=== PATIENT | female | born 1950 | race Caucasian/White ===

== ENCOUNTER → 2016-10-09 | Day surgery (SDC) | payer MEDICARE, BC ==
[~2016-10-09] MED LIST: ALPRAZolam 0.25 MG TAB ONE; BACITRACIN OINT 1 EACH PACKET TOPICAL ONE; LIDOCAINE 1% INJ 10MG/ML (20 ML MDV) ONE; SODIUM BICARB 4% 5 ML VIAL (0.48 MEQ/ML) ONE
--- NOTE | 2016-10-09 11:44 | USB ---
EXAMINATION TYPE: US biopsy breast add'l VAD RT, US biopsy breast VAD RT, MG diagnostic mammo RT wo CAD DATE OF EXAM: 10/09/2016 10:22 AM CLINICAL HISTORY: US. 2 lesions at the right 10:00 position. TECHNIQUE: 2 site Ultrasound guided core biopsy of right breast. COMPARISON: NONE FINDINGS: The procedure of ultrasound guided core biopsy was explained to the patient. Benefits, alternatives, and risks were discussed. An informed consent was then obtained. The patient was placed in supine positioning for imaging and for the procedure. The overlying skin was prepped and draped in usual sterile fashion. Lidocaine buffered with bicarbonate was used as anesthetic into the skin and subcutaneous tissue up to area of concern in the right breast. A therese was made with surgical scalpel. Under ultrasound guidance, a 12-gauge vacuum assisted biopsy gun device was used to obtain 4 core samples from each site labeled A and B. Following this, a biopsy clip was left in lesion. Mammography demonstrates appropriate deployment of clips. The patient tolerated the procedure well without any immediate complication. The patient was kept in the radiology department for short stay after the procedure and then discharged home in stable condition. IMPRESSION: Successful, uncomplicated ultrasound guided core biopsy of 2 lesions within the 10:00 position right breast with full pathology results to follow. Pathology Results: Malignant A. BREAST, 10:00 A, ULTRASOUND GUIDED CORE BIOPSY: INVASIVE MAMMARY CARCINOMA, PENDING SPECIAL STAINS. B. BREAST, RIGHT, 10:00 B, ULTRASOUND CORE BIOPSY: INVASIVE MAMMARY CARCINOMA. PENDING SPECIAL STAINS. ADDENDUM REPORT A. BREAST, RIGHT TEN O'CLOCK A, ULTRASOUND GUIDED CORE BIOPSY: INVASIVE DUCTAL CARCINOMA. B. BREAST, RIGHT, TEN O'CLOCK B, ULTRASOUND GUIDED CORE BIOPSY: INVASIVE DUCTAL CARCINOMA. Recommendation Surgical consult of the right breast. EMRED
== END ==
LOC: RADUSWWP 08:46
PROVIDERS: ATTEND Surgery
DX: C50.411 Malignant neoplasm of upper-outer quadrant of right female breast (principal); R92.8 Other abnormal and inconclusive findings on diagnostic imaging of breast; Z88.5 Allergy status to narcotic agent; Z91.041 Radiographic dye allergy status
CPT/HCPCS: 88305; 88342; 19083; G0206; A4648; J2001; 19084; 88361

== ENCOUNTER → 2018-04-02 | Outpatient (CLI) | payer MEDICARE ==
[2018-04-02 10:05] LABS: Basophils % (A) 1 %; Eosinophils # (A) 0.2 k/uL (0-0.7); Eosinophils % (A) 4 %; HCT 41.4 % (34.0-46.0); HGB 13.5 gm/dL (11.4-16.0); Lymphocytes # (A) 1.3 k/uL (1.0-4.8); Lymphocytes % (A) 31 %; MCH 30.4 pg (25.0-35.0); MCHC 32.6 g/dL (31.0-37.0); MCV 93.1 fL (80.0-100.0); Mean Platelet Volume 7.3; Monocytes # (A) 0.3 k/uL (0-1.0); Monocytes % (A) 8 %; Neutrophils # (A) 2.1 k/uL (1.3-7.7); Neutrophils % (A) 53 %; Platelet Count 246 k/uL (150-450); RBC 4.44 m/uL (3.80-5.40); RDW 12.9 % (11.5-15.5); WBC 4.1 k/uL (3.8-10.6)
[2018-04-02 11:52] LABS: Erythrocyte Sedimentation Rate 9 mm/hr (0-20)
== END | disposition home or self-care (01) ==
LOC: LABWHC1 09:37
PROVIDERS: ATTEND Orthopaedic Surgery
DX: T84.84XA Pain due to internal orthopedic prosthetic devices, implants and grafts, initial encounter (principal); Z96.651 Presence of right artificial knee joint
CPT/HCPCS: 36415; 85025; 85652; 86140

== ENCOUNTER → 2018-04-03 | Outpatient (CLI) | payer MEDICARE ==
--- NOTE | 2018-04-03 14:26 | NM ---
EXAMINATION TYPE: NM bone 3 phase DATE OF EXAM: 04/03/2018 COMPARISON: NONE HISTORY: Lower extremity pain in right knee prosthesis. Triple phase bone scintigraphy was performed following the injection of 23.8 mCi Tc 99m MDP. Immedia te images and 5 hours post injection images acquired. FINDINGS: There is symmetric flow to the bilateral knees as well as symmetric blood pool. Photopenic defect of the right tibia is seen from the prosthesis. Otherwise overall symmetric flow is seen to the knee marija nts. With regards to the whole body scans there is focal uptake of the right lateral aspect of L5 and of T 10-1 lesser degree. Multifocal uptake of the cervical spine approximately C7 on the left and C5 on th e left as well as C4 on the right are noted. There is also mildly asymmetric uptake of the right femo ral acetabular joint. Other multifocal uptake is overall symmetric within the glenohumeral joints, ch romic clavicular joints, sternoclavicular joints, sacroiliac joints, knees, ankles, and feet as well as partial visualization within the elbow is most compatible with degenerative change/arthropathy. IMPRESSION: 1. Focal abnormal areas of uptake within the lumbar spine, thoracic spine, and cervical spine may rel ate to degenerative change or metastasis in this patient with a history of breast cancer. Additionall y focal right hip obtained and is favored to represent arthropathy but could represent less likely me tastatic disease. Correlation with radiographs is recommended. 2. No asymmetric uptake within the right knee to suggest prosthesis loosening or joint infection. 3. Degenerative change of the axial and appendicular skeleton.
== END | disposition home or self-care (01) ==
LOC: RADNMMAIN 07:20
PROVIDERS: ATTEND Orthopaedic Surgery
DX: R93.7 Abnormal findings on diagnostic imaging of other parts of musculoskeletal system (principal); M79.661 Pain in right lower leg; Z96.651 Presence of right artificial knee joint; Z91.041 Radiographic dye allergy status
CPT/HCPCS: 78315; A9503

== ENCOUNTER → 2018-04-18 | Outpatient (CLI) | payer MEDICARE ==
--- NOTE | 2018-04-18 13:22 | MR ---
EXAMINATION TYPE: MR t2 spine survey wo con DATE OF EXAM: 04/18/2018 COMPARISON: Bone scan dated 04/03/2018 HISTORY: Abn bone scan TECHNIQUE: Sagittal T2 weighted sequence of the entire spine is performed for survey. FINDINGS: Multilevel degenerative changes are seen of the cervical, thoracic, and lumbar spine. Speci fically there are at least broad-based disc bulges at C4-C5, C5-C6, and C6-C7 as well as at T7-T8, T8 -T9, T9-T10, and T10-T11 in addition to at L1-L2, L3-L4, L4-L5, and L5-S1. Evaluation for disc hernia tion is limited without axial imaging. At L4, L2, L1, T10, T9 and T2 there are T2 hyperintense lesion s that may represent hemangiomas. Confirmation with T1-weighted imaging could be performed. Patchy T1 hypointense subcentimeter areas are seen within the L2 vertebral body however no focal uptake, prior nuclear medicine uptake scan is seen in these may represent patchy heterogeneous bone marrow. No vertebral body height loss is seen throughout the cervical, thoracic, or lumbar spine. Mild spinal canal stenosis is suspected at C4-C5, C5-C6 and C6-C7 as well as at T10-T11, L3-L4, and moderate spi nal canal stenosis suspected at L4-5. Again confirmation with axial imaging could be performed. The s dion cord appears of normal signal throughout. Degree of neural foraminal narrowing would be better assessed with axial imaging in addition to sagittal imaging. Multilevel disc desiccation is seen. IMPRESSION: 1. No findings diagnostic of metastasis. Multiple T2 hyperintense vertebral body lesions most likely represent hemangiomas and could be confirmed with T1-weighted imaging or CT to assess the trabecular pattern. 2. No evidence of vertebral body height loss or malalignment throughout the spine. 3. Multilevel degenerative disc disease throughout the cervical, thoracic, and lumbar spine with at l east disc bulges as described above. Evaluation for focal herniation would be better assessed with ax ial images to correspond to the sagittal images.
--- NOTE | 2018-04-18 16:13 | MR ---
EXAMINATION TYPE: MR hip RT wo/w con DATE OF EXAM: 04/18/2018 COMPARISON: Nuclear medicine bone scan dated 04/03/2018 HISTORY: Abn bone scan. Breast cancer. CONTRAST: Standard multiplanar, multisequence MRI departmental protocol utilizing 9.5 mL intravenous Gadavist g adolinium contrast. FINDINGS: Corresponding to the previously seen abnormal focal area of uptake on the nuclear medicine bone scan dated 04/11/2018 there is a PD hyperintense 8mm lesion of the right medial femoral head is correspondi ngly T1 hypointense with enhancement. Therefore this is suspicious for metastasis. Additionally there is an enhancing T1 hypointense and T2/PD hyperintense 1.2 cm posterior right acetabular lesion is al so highly suspicious for metastasis. Additionally there are findings of mild femoral acetabular arthropathy bilaterally with acetabular ro of sclerosis and slight cephalad joint space narrowing with small subchondral cyst seen on the left w ithin the acetabulum. No evidence of focal bone marrow edema, acute fracture, or dislocation. No joe s evidence of adenopathy within the pelvis is seen. Numerous sigmoid diverticula are noted. The femoral heads maintain their normal rounded contour with no evidence of avascular necrosis. Muscu lature of the pelvis appears grossly unremarkable. IMPRESSION: Right femoral head and right posterior acetabular enhancing osseous lesions most compatible with meta stasis corresponding to the abnormal uptake seen on bone scan dated 04/03/2018. In light of these find ings further evaluation of the spine could be performed with either enhanced MR or CT.
== END ==
LOC: RADMRIMAIN 09:45
PROVIDERS: ATTEND Internal Medicine Hematology & Oncology
DX: M51.24 Other intervertebral disc displacement, thoracic region (principal); M50.221 Other cervical disc displacement at C4-C5 level; M51.26 Other intervertebral disc displacement, lumbar region; M51.36 Other intervertebral disc degeneration, lumbar region; M51.34 Other intervertebral disc degeneration, thoracic region; M50.33 Other cervical disc degeneration, cervicothoracic region
CPT/HCPCS: 82565; 72141; 72146; 72148; 73723; 36415; A9581

== ENCOUNTER → 2018-09-17 | Outpatient (CLI) | payer MEDICARE ==
[2018-09-17 13:50] LABS: Basophils % (A) 1 %; Eosinophils # (A) 0.2 k/uL (0-0.7); Eosinophils % (A) 3 %; HCT 41.7 % (34.0-46.0); HGB 13.3 gm/dL (11.4-16.0); Lymphocytes # (A) 1.6 k/uL (1.0-4.8); Lymphocytes % (A) 33 %; MCH 30.1 pg (25.0-35.0); MCV 94.2 fL (80.0-100.0); Mean Platelet Volume 7.3; Monocytes # (A) 0.2 k/uL (0-1.0); Monocytes % (A) 4 %; Neutrophils # (A) 2.6 k/uL (1.3-7.7); Neutrophils % (A) 55 %; Platelet Count 254 k/uL (150-450); RBC 4.43 m/uL (3.80-5.40); WBC 4.7 k/uL (3.8-10.6)
== END ==
LOC: LABPAT 13:16
PROVIDERS: ATTEND Orthopaedic Surgery
DX: Z01.812 Encounter for preprocedural laboratory examination (principal); M65.342 Trigger finger, left ring finger
CPT/HCPCS: 36415; 80051; 85025

== ENCOUNTER 2018-09-19 10:25 | Day surgery (SDC) | payer MEDICARE ==
[2018-09-18 08:33] VITALS: BMI 32.8
--- NOTE | 2018-09-18 11:26 | HP ---
HISTORY AND PHYSICAL CHIEF COMPLAINT: Left ring finger pain and locking. HISTORY OF PRESENT ILLNESS: The patient is a 68-year-old, right-hand dominant, retired female who presents with left ring finger pain and locking for the past couple months. She notes swelling along with morning symptoms. She has tried an injection and medications with only partial temporary relief. She notes it is significantly painful and limiting for her. PAST MEDICAL HISTORY: Significant for hypertension, breast cancer, and gout along with arthritis. PAST SURGICAL HISTORY: Significant for bilateral carpal tunnel release, cholecystectomy, hysterectomy, left and right total knee arthroplasty along with previous breast surgery. CURRENT MEDICATIONS: 1. Arimidex. 2. Hydrochlorothiazide. 3. Inderal. 4. Mobic. She has allergies to LORTAB and RED DYE. FAMILY HISTORY: Significant for cancer. SOCIAL HISTORY: Negative for current tobacco or alcohol use. REVIEW OF SYSTEMS: A 16 point review of systems otherwise reviewed and is noncontributory. PHYSICAL EXAMINATION: On examination, the patient is approximately 5 foot 7, 210 pounds of endomorphic habitus. HEENT exam is nonfocal. Neck is supple. She is nontender about the left shoulder, elbow and wrist. On examination of her left hand, she is tender over the ring finger A1 dwight. She has palpable triggering and catching. She has moderate digital swelling and stiffness. Light touch is distally intact. IMPRESSION: 1. Symptomatic left ring trigger finger. 2. History of breast cancer. 3. History of gout. RECOMMENDATIONS: I talked to the patient at length regarding her condition and treatment options. At this point, she remains quite symptomatic despite conservative measures. After thorough discussion, she opts to proceed with surgery. We will plan to proceed with left ring trigger finger release. We will likely perform that utilizing local anesthetic and IV sedation. We will likely also perform it as an outpatient procedure. MMODL / IJN: [id number] /
[~2018-09-19 10:25] MED LIST changes: -ALPRAZolam 0.25 MG TAB ONE; -BACITRACIN OINT 1 EACH PACKET TOPICAL ONE; +DEXAMETHASONE SOD PHOSPHATE 10 MG/ML 1 ML VIAL IV ONE; +HYDROmorphone 0.5 MG/0.5 ML SYRINGE IVP PRN; +LACTATED RINGERS 1,000 ML IV SCH; +LIDOCAINE 1% 20 ML VIAL (10MG/ML) FOR IV START INTRADERMA PRN; -LIDOCAINE 1% INJ 10MG/ML (20 ML MDV) ONE; +MIDAZOLAM 2 MG/2 ML VIAL IV PRN; +ONDANSETRON 4 MG/2 ML VIAL IVP ONE; +SCOPOLAMINE 1.5MG/72HR PATCH TRANSDERM ONE; -SODIUM BICARB 4% 5 ML VIAL (0.48 MEQ/ML) ONE; +ceFAZolin IN SWFI 2 GM/20 ML SYRINGE IVP ONE
[2018-09-19 11:48] VITALS: TEMP 98.1
[2018-09-19] MEDS ORDERED: BUPIVACAINE (PF) 0.5% 30 ML VIAL SQ ONE (12:24)
[2018-09-19] MEDS ORDERED: PROPOFOL 10 MG/ML 20 ML VIAL IV ONE (12:24)
[2018-09-19] MEDS ORDERED: fentaNYL (PF) 50 MCG/ML 2 ML AMP ONE (12:24)
[2018-09-19] MEDS ORDERED: LIDOCAINE 1% INJ 10MG/ML (20 ML MDV) ONE (12:24)
--- NOTE | 2018-09-19 12:57 | P.OP ---
Date of Procedure: 09/19/18 Preoperative Diagnosis: Symptomatic left ring trigger finger Postoperative Diagnosis: Same Procedure(s) Performed: Left ring trigger finger release Anesthesia: MAC, local Surgeon: Wilfredo Miranda Estimated Blood Loss (ml): 2 Pathology: none sent Condition: stable Disposition: PACU Indications for Procedure: The patient's a 68-year-old female presents with progressive left ring finger pain and locking for the past several weeks. She did try conservative measures with medications and injections without much relief. She was significantly limited because of pain. A discussion of the risks and benefits of operative intervention was made with the patient and she opted to proceed. Operative risks to include infection, neurovascular injury, possible incomplete resolution of symptoms, possible recurrence of symptoms and need for subsequent procedures was discussed. Informed consent was obtained. Operative Findings: As below Description of Procedure: The patient was brought to the operating room, and after induction of IV sedation the left upper extremity was prepped and draped in normal fashion. The proposed incision site was outlined with the distal volar palmar crease over the left fourth digit. 5 mL of quarter percent plain Marcaine was injected. The skin was incised sharply. A 1 cm incision was made. Subcu changed tissues were divided bluntly. The neurovascular bundles were then gently retracted. The A1 dwight was identified and transected under direct visualization. The flexor tendon was then mobilized. There was good excursion. The wound was irrigated with normal saline. The skin was reapproximated with simple 3-0 nylon suture. A sterile dressing was applied. The patient was awoken from sedation and transferred to the recovery room in good condition. Blood loss was estimated at 2 mL. No complications were incurred. Sponge and needle counts were correct in the case.
[2018-09-19 13:12] VITALS: BP 150/70; PULSE 67; RESP 18
== END 2018-09-19 13:26 | disposition home or self-care (01) ==
LOC: OR 10:25
PROVIDERS: ATTEND Orthopaedic Surgery
DX: M65.342 Trigger finger, left ring finger (principal); Z85.3 Personal history of malignant neoplasm of breast; Z79.1 Long term (current) use of non-steroidal anti-inflammatories (NSAID); Z79.811 Long term (current) use of aromatase inhibitors; Z79.899 Other long term (current) drug therapy; I10 Essential (primary) hypertension; M19.90 Unspecified osteoarthritis, unspecified site; K57.92 Diverticulitis of intestine, part unspecified, without perforation or abscess without bleeding; Z88.5 Allergy status to narcotic agent; Z91.041 Radiographic dye allergy status; Z91.02 Food additives allergy status
CPT/HCPCS: 26055; J1100; J2405; J2001; J3010; J2704; J0690

== ENCOUNTER → 2019-01-23 | Outpatient (CLI) | payer MEDICARE ==
--- NOTE | 2019-01-23 11:55 | XR ---
EXAMINATION TYPE: XR cervical spine comp DATE OF EXAM: 01/23/2019 TECHNIQUE: Frontal, lateral, oblique, and open mouth view of the cervical spine are obtained. HISTORY: M54.2 cervicalgia COMPARISON: MRI survey April 18, 2018 FINDINGS: The cervical spine is visualized in its entirety from C1 thru the top of T1 level, there i s grade 1 to borderline grade 2 anterolisthesis of C3 on C4 measuring 4 to 5 mm. There is slight gra de 1 retrolisthesis of C5 on C6 and C6-C7. Moderate to advanced spurring and disc space narrowing C4- C5 through C6-C7 levels is present. C1-C2 articulation appears within normal limits on the open-mouth view. Prevertebral soft tissue appears within normal limits. Oblique images are felt unremarkable. O verlying soft tissue shows curvilinear calcification right C4 level could reflect carotid bulb mild-t o-moderate eccentric plaque. Vertebral body heights are maintained. IMPRESSION: As above. Note is made spondylolisthesis C3-C4 level is new or more prominent from prior MRI, correlate for interval trauma or injury.
== END ==
LOC: RADXRMAIN 11:19
PROVIDERS: ATTEND Nurse Practitioner Family
DX: M48.02 Spinal stenosis, cervical region (principal); M43.12 Spondylolisthesis, cervical region
CPT/HCPCS: 72050

== ENCOUNTER → 2019-03-16 | Outpatient (CLI) | payer MEDICARE ==
[2019-03-16 13:43] VITALS: BP 120/83; PULSE 85; RESP 16
--- NOTE | 2019-03-16 15:00 | P.PAINCN ---
History of Present Illness - Reason for Consult Consult date: 03/16/19 - History of Present Illness This is a initial consultation for this 68 years old female with a chronic history of severe neck pain started almost 2 years ago, the pain is constant intensity of the pain increased over time, she denies any initiating event, she denies any numbness or tingling sensation she denies any weakness in the upper or lower extremities, and she reported that any neck movement aggravate her pain, the intensity of the pain interferes with the quality of life and she describes the intensity of the pain fluctuates between 8/10 increased to 10 over 10, with any neck movement, patient was evaluated by a spine surgeon Dr. Dyson and he recommended interventional pain management procedures, and if that failed , then he recommend cervical fusion, and patient here for consultation regarding interventional pain management Past Medical History Past Medical History: Cancer, Hypertension, Musculoskeletal Disorder, Osteoarthritis (OA) Additional Past Medical History / Comment(s): hx of rt breast ca, 2017, had 33 radiation tx, hx of kidney stones, gout, diveticulitis History of Any Multi-Drug Resistant Organisms: None Reported Past Surgical History: Bladder Surgery, Breast Surgery, Cholecystectomy, Heart Catheterization, Hysterectomy, Joint Replacement, Orthopedic Surgery Additional Past Surgical History / Comment(s): rt breast lumpectomy, bladder suspension, jessica knee replacement, jessica carpal tunnel, Past Anesthesia/Blood Transfusion Reactions: Postoperative Nausea & Vomiting (PONV) Smoking Status: Former smoker - Past Family History Brother(s) Family Medical History: Cancer Medications and Allergies Home Medications Medication Instructions Recorded Confirmed Type Allopurinol [Zyloprim] 300 mg PO DAILY 09/18/18 03/12/19 History Anastrozole [Arimidex] 1 mg PO DAILY 09/18/18 03/12/19 History Calcium Carbonate [Calcium] 600 mg PO BID 09/18/18 03/12/19 History Hydrochlorothiazide 25 mg PO DAILY 09/18/18 03/12/19 History Meloxicam [Mobic] 15 mg PO DAILY 09/18/18 03/12/19 History Multivitamins, Thera [Multivitamin 1 tab PO DAILY 09/18/18 03/12/19 History (formulary)] Propranolol [Inderal] 20 mg PO BID 09/18/18 03/12/19 History Ergocalciferol (Vitamin D2) 50,000 unit PO Q7D 03/12/19 03/12/19 History [Vitamin D2] Allergies Allergy/AdvReac Type Severity Reaction Status Date / Time acetaminophen [From Lortab] Allergy Itching Verified 03/12/19 12:36 hydrocodone [From Lortab] Allergy Itching Verified 03/12/19 12:36 Iodinated Contrast- Oral and Allergy Unknown Verified 03/12/19 12:36 IV Dye Physical Exam Vitals: Vital Signs Pulse Resp BP 03/16/19 13:42 85 16 120/83 Social history : not smoker , NO ETOH , NO Illegal drugs use . Review of Systems : - Constitutional : no chills , no fever , no night sweats , - Ears : no ear discharge , no change in hearing -Nose, Mouth ,Throat ; no bleeding gums, no sore throat , no epistaxis , -Cardiovascular : Denies chest pain, , no orthopnea , no palpitation -Respiratory : Denies cough , no dyspnea , no hemoptysis -Gastrointestinal : no change in bowel habits , no coffee-ground emesis . -Genitourinary : No hematuria , no discharge , no incontinence, -Musculoskeletal : No gait dysfunction , report low back pain , - Neurological : no ataxia , no tremor , no sezure , -Psychatric : no suicidal ideation no hallucination - Endocrine : no cold intolerence , no polyuria , no polydypsia , -Hematologic : no easy bleeding , no easy brusing , -Allergic / immm : no angioedema , no wheezing ,no allergic rhinitis -Integumentary : no brttle nails , no change hair / nails , no foot/leg ulcers . Physical Examinations : -Constitutional : Cooperative , not in acute distress . -HEENT : nech ; supple , no Lymphadenopathy , no Thyromegaly , :eyes : no icterus, no photophobia . : ENT normal oropharynx , no Thrush - Respiratory : Chest clear to auscultations Bilaterally , no wheezing . - Cardiovascular : regular rate and rhythem , S1 , S2 , no S3 , no S4. - Gastrointestina l: abdomen soft no tenderness , no organomegally . - Genitourinary : Defferred . -Integumentary : No cellulitis , no ulcers , normal skin turgor , no cyanotic . - neurologic : Cranial nerve II to XII intact , no focal neurological deffecit -psychatric : alert , oriented X 3 , appropriate affect , intact judgment and insight . -Lymphatic : no Lymphadenopathy. - musculoskeltal: normal gait Cervical Spine motor stregnth in the deltoid and biceps, normal right side , normal Left side motor stregnth biceps and the wrist extensors normal right side ,normal left side . motor stregnth in the triceps muscle . normal Right side , normal Left side deep tendon reflexes normal at the biceps , normal at Brachioradialis , normal at triceps. Spurling test = positive Neck distraction test= positive Reyes sign= positive positive cervical facet loading test . Lumber spine moter stegnth lower extremities ,thigh and legs 5/5 Right side , 5/5 Left side Results Comments: MRI of the cervical spine done at the [facility]opedic associated 45 C5 6 C6 7 multilevel cervical degenerative disc disease and multilevel cervical spondylosis with facet hypertrophy and there is mild canal stenosis Assessment and Plan Plan: Assessment and plan=chronic neck pain secondary to cervical degenerative disc disease and cervical spondylosis with facet arthropathy, Patient could benefit from cervical epidural steroid injections 2 , and if she continued to have pain after the cervical epidural steroid injection then we will consider doing diagnostic medial branch block cervical C3 4, C4 5 and C5 6, and possible RFA Time with Patient: Greater than 30 PQRS Measure Charge Sheet Measure #130: Documentation of Current Meds in Medical Chart: Patient's medications documented in chart Measure #226: Tobacco Use: Screen & Cessation Intervention: Pt not a tobacco u ser Measure #111: Pneumonia Vaccination: Pneumococcal vaccine NOT administered or previously given Measure #47: Advance Care Plan: Advance care planning discussed & documented, pt chose/unable to give Measure #412: Opioid Treatment Agreement: No documentation of signed opioid treatment agreement Measure #408: Opioid Therapy Follow-up Evaluation: Patient had NO f/u eval minimum every 3 months during opioid therapy Measure #317: Preventitive Care & Scrn High Bld Press & F/U: Normal blood pressure, f/u not required Measure #128: Body Mass Index (BMI) Screening & Follow-up: BMI documented ABOVE normal parameters - f/u documented Measure #131: Pain Assessment & Follow-up: Pain positive & plan documented, Follow-up scheduled Measure #431: Unhealthy Alcohol Use Preventative Care & Scrn: Patient not identified as an unhealthy alcohol user PQRS Narrative: Smoking Status Former smoker Blood Pressure 120/83 Pain Intensity [Neck] 9 Scale Used Numeric (1 - 10) Hx Alcohol Use (MH) Yes: rarely Home Medications: Ambulatory Orders Allopurinol [Zyloprim] 300 mg PO DAILY 09/18/18 Anastrozole [Arimidex] 1 mg PO DAILY 09/18/18 Calcium Carbonate [Calcium] 600 mg PO BID 09/18/18 Hydrochlorothiazide 25 mg PO DAILY 09/18/18 Meloxicam [Mobic] 15 mg PO DAILY 09/18/18 Multivitamins, Thera [Multivitamin (formulary)] 1 tab PO DAILY 09/18/18 Propranolol [Inderal] 20 mg PO BID 09/18/18 Ergocalciferol (Vitamin D2) [Vitamin D2] 50,000 unit PO Q7D 03/12/19
== END | disposition home or self-care (01) ==
LOC: PNWHC3 13:01
PROVIDERS: ATTEND Specialist
DX: G89.29 Other chronic pain (principal); M48.02 Spinal stenosis, cervical region; M50.321 Other cervical disc degeneration at C4-C5 level; M47.812 Spondylosis without myelopathy or radiculopathy, cervical region; M46.92 Unspecified inflammatory spondylopathy, cervical region; I10 Essential (primary) hypertension; Z87.891 Personal history of nicotine dependence; Z79.899 Other long term (current) drug therapy; Z88.5 Allergy status to narcotic agent; Z88.6 Allergy status to analgesic agent
CPT/HCPCS: 99211

== ENCOUNTER 2019-03-25 09:45 | Day surgery (SDC) | payer MEDICARE ==
[2019-03-23 08:30] VITALS: BMI 31.9
[~2019-03-25 09:45] MED LIST changes: -DEXAMETHASONE SOD PHOSPHATE 10 MG/ML 1 ML VIAL IV ONE; -HYDROmorphone 0.5 MG/0.5 ML SYRINGE IVP PRN; +LIDOCAINE 1% 20 ML VIAL (10MG/ML) FOR IV START INTRADERMA ONE; -LIDOCAINE 1% 20 ML VIAL (10MG/ML) FOR IV START INTRADERMA PRN; -MIDAZOLAM 2 MG/2 ML VIAL IV PRN; -ONDANSETRON 4 MG/2 ML VIAL IVP ONE; -SCOPOLAMINE 1.5MG/72HR PATCH TRANSDERM ONE; -ceFAZolin IN SWFI 2 GM/20 ML SYRINGE IVP ONE
[2019-03-25 10:35] VITALS: RESP 16; TEMP 97.7
--- NOTE | 2019-03-25 11:29 | P.PCN ---
Date of Procedure: 03/25/19 Procedure(s) Performed: PROCEDURE NOTE: Cervical Interlaminar Epidural Steroid Injection PHYSICIAN: Isiah Hull MD PREOPERATIVE DIAGNOSIS: cervicalgia POSTOPERATIVE DIAGNOSIS: same PROCEDURE PERFORMED: Interlaminar Epidural Steroid Injection at the C7-T1 level, with a right paramedian approach under fluoroscopic guidance IV SEDATION with midazolam and fentanyl ESTIMATED BLOOD LOSS: None FLUOROSCOPY WAS USED. INDICATIONS FOR PROCEDURE: Patient has a clinical picture consistent with the above-mentioned diagnosis, resulting in cervicalgia. PROCEDURE AND FINDINGS: Patient was greeted in the pre-procedure holding area. The risk, benefits and alternatives to the procedure were again reviewed with the patient and written informed consent was placed in the chart. An IV line was placed. A 500 mL bag of NS was connected to the patient. She was taken to the procedure room and positioned prone on the fluoroscopy table. Routine monitors were applied including EKG leads, blood pressure cuff, and pulse oximetry. Prior to the procedure a time out was completed, verifying correct patient, procedure, site, positioning, and implants and/or special equipment. An AP fluoroscpic typing office worker film was taken to identify the C7 and T1 vertebral bodies, as well as the C7-T1 interspace. The skin was prepped with chlorhexidine and draped in the usual sterile fashion. The skin and subcutaneous tissue overlying the C7-T1 interspace was anesthetized using a 25-guage 1-1/2 inch needle with 1% preservative-free lidocaine for a total volume of 1 mls. Then an 20 cm Tuohy needle was advanced utilizing AP and lateral fluoroscopic views into the C7-T1 interlaminar space. Once the needle tip was engaged in the ligamentum flavum, a loss of resistance syringe was attached and loss of resistance technique was used to identify the epidural space. AP and oblique fluoroscopy views were used to confirm location. Contrast was not used as patient has severe allergy to IV contrast. At this point, after negative aspiration, a total 8mL volume of treatment injectate, consisting of 1mL of 10mg/mL dexamethasone, 5mL of PFNS and 2mL of 1% lidocaine was injected easily. The needle was then flushed with 1 ml of contrast and removed. The needle insertion site was dressed appropriately. She was taken to the recovery room where she was monitored for a brief period of time. She tolerated the procedure well and was discharged home in stable condition with post procedural instructions. Follow-up will be for repeat procedure in 4 weeks. COMPLICATIONS: None
[2019-03-25] MEDS ORDERED: IV FLUID CONTINUATION 1,000 ML IV ONE (11:33)
[2019-03-25 11:51] VITALS: BP 126/77; PULSE 68
--- NOTE | 2019-03-25 12:00 | FL ---
EXAMINATION TYPE: FL guided pain mgmt statistic DATE OF EXAM: 03/25/2019 HISTORY: Pain 7 seconds of fluoroscopic time was utilized for pain management.
== END 2019-03-25 12:02 | disposition home or self-care (01) ==
LOC: ORPAIN 09:45
PROVIDERS: ATTEND Anesthesiology
DX: M54.2 Cervicalgia (principal); Z91.041 Radiographic dye allergy status
CPT/HCPCS: 62321; J2250; J1100; J3010; Q9966; 99152

== ENCOUNTER → 2019-04-01 | Outpatient (CLI) | payer MEDICARE ==
[2019-04-01 14:00] VITALS: BP 150/88; PULSE 76; RESP 18
--- NOTE | 2019-04-01 14:54 | P.PAINPG ---
Subjective Progress Note Date: 04/01/19 This is a 68 years old female with a chronic history of severe neck pain started almost 2 years ago who we initially evaluated in February 2019. She returns today for procedure follow-up following a cervical epidural steroid injection at C7-T1 done on 03/25/2019. She reports no benefit from this procedure, and notes that her pain is a 9 out of 10 and constant located in the right side of her neck without any radiation to extremities. She denies weakness, numbness or tingling in extremities, severe headaches. Patient has been evaluated by a spine surgeon Dr. Dyson and he recommended interventional pain management procedures, and if that failed , then he recommend cervical fusion, which she would not like to pursue at this time. 13 point review of systems was negative. Physical Exam Vitals: Reviewed in EMR Physical Examinations : GENERAL: Well appearing, in no acute distress PSYCH: Mood and affect is appropriate. Awake, alert, and oriented SKIN: Skin color, texture, turgor normal, no rashes or lesions HEENT: Normocephalic, atraumatic. EOM intact CV: No pedal edema RESP: Respirations are unlabored, no audible wheezing GI: Abdomen non-distended MUSCULOSKELETAL: Bilateral upper and lower extremity strength is normal and symmetric. No atrophy or tone abnormalities are noted. Neck: Pain to palpation over the right cervical paraspinous muscles. Spurling negative, Reyes's sign negative. Pain with neck flexion, extension, and lateral flexion. No obvious deformity or signs of trauma. Normal cervical lordotic curve and normal cervical spine range of motion Gait: Gait is normal NEUR: Bilateral upper extremity coordination and muscle stretch reflexes are physiologic and symmetric. No loss of sensation is noted. Results Comments: [facility] of the cervical spine [facility] shows C45 C5 6 C6 7 multilevel cervical degenerative disc disease and multilevel cervical spondylosis with facet hypertrophy and there is mild canal stenosis Assessment and Plan Plan: Assessment and plan=chronic neck pain secondary to cervical degenerative disc disease and cervical spondylosis with facet arthropathy Patient did not obtain benefit from cervical epidural steroid injections, we will schedule diagnostic medial branch block right cervical C3, C4, C5, 2 and possible RFA if she obtains good benefit from the diagnostic block Objective - Vital Signs Vital signs: Vital Signs Temp Pulse 76 04/01/19 13:53 Resp 18 04/01/19 13:53 BP 150/88 04/01/19 13:53 Pulse Ox Intake & Output 03/31/19 04/01/19 04/01/19 18:59 06:59 18:59 Weight 95.254 kg PQRS Measure Charge Sheet Measure #130: Documentation of Current Meds in Medical Chart: Patient's medications documented in chart Measure #226: Tobacco Use: Screen & Cessation Intervention: Pt not a tobacco user Measure #111: Pneumonia Vaccination: Pneumococcal vaccine NOT administered or previously given Measure #47: Advance Care Plan: Advance care planning discussed & documented, pt chose/unable to give Measure #412: Opioid Treatment Agreement: No documentation of signed opioid christen tment agreement Measure #317: Preventitive Care & Scrn High Bld Press & F/U: Pre-hypertensive or hypertensive BP documented, pt will f/u with PCP Measure #128: Body Mass Index (BMI) Screening & Follow-up: BMI documented within normal parameters Measure #131: Pain Assessment & Follow-up: Pain positive & plan documented, Foll ow-up scheduled Measure #431: Unhealthy Alcohol Use Preventative Care & Scrn: Patient not identified as an unhealthy alcohol user PQRS Narrative: Smoking Status Former smoker Blood Pressure 150/88 Pain Intensity [Neck] 9 Scale Used Numeric (1 - 10) Hx Alcohol Use (MH) Yes: rarely Home Medications: Ambulatory Orders Allopurinol [Zyloprim] 300 mg PO DAILY 09/18/18 Anastrozole [Arimidex] 1 mg PO DAILY 09/18/18 Calcium Carbonate [Calcium] 600 mg PO BID 09/18/18 Hydrochlorothiazide 25 mg PO DAILY 09/18/18 Meloxicam [Mobic] 15 mg PO DAILY 09/18/18 Multivitamins, Thera [Multivitamin (formulary)] 1 tab PO DAILY 09/18/18 Propranolol [Inderal] 20 mg PO BID 09/18/18 Ergocalciferol (Vitamin D2) [Vitamin D2] 50,000 unit PO Q7D 03/12/19 ALPRAZolam [Xanax] 0.5 mg PO DAILY PRN 03/23/19 Controlled Substance Measures - Controlled Substance Measures Is patient prescribed a controlled substance at discharge?: No
== END | disposition home or self-care (01) ==
LOC: PNWHC3 13:19
PROVIDERS: ATTEND Anesthesiology
DX: G89.29 Other chronic pain (principal); M50.321 Other cervical disc degeneration at C4-C5 level; M47.812 Spondylosis without myelopathy or radiculopathy, cervical region; M46.92 Unspecified inflammatory spondylopathy, cervical region; Z87.891 Personal history of nicotine dependence
CPT/HCPCS: 99211

== ENCOUNTER 2019-04-13 07:23 | Day surgery (SDC) | payer MEDICARE ==
[2019-04-09 10:02] VITALS: BMI 32.6
[~2019-04-13 07:23] MED LIST changes: -LIDOCAINE 1% 20 ML VIAL (10MG/ML) FOR IV START INTRADERMA ONE
[2019-04-13 07:52] VITALS: TEMP 97.8
[2019-04-13] MEDS ORDERED: LIDOCAINE 1% 20 ML VIAL (10MG/ML) FOR IV START INTRADERMA ONE (08:07)
[2019-04-13] MEDS ORDERED: IV FLUID CONTINUATION 500 ML IV ONE (09:11)
--- NOTE | 2019-04-13 09:35 | P.PCN ---
Date of Procedure: 04/13/19 Procedure(s) Performed: PREOPERATIVE DIAGNOSIS: Cervical Spondylosis with Facet Arthropathy.without myelopathy POSTOPERATIVE DIAGNOSIS: Cervical Spondylosis, Facet Arthropathy. Without myelopathy PROCEDURES: Diagnostic right-sided C3, C4, C5 medial branch blocks, with fluoroscopic guidance ANESTHESIA: Local with 1% lidocaine; IV sedation with Versed. Fluoroscopy was used for the procedure and images were saved in the radiology portion of the chart. EBL: Minimal PROCEDURE INDICATION: The patient with neck pain secondary to cervical arthropathy unresponsive to more conservative treatments. PROCEDURE DESCRIPTION / TECHNIQUE: The patient was seen and identified in the preoperative area. Risks, benefits, complications, and alternatives were discussed with the patient, the patient agreed to proceed with the procedure and signed the consent. IV was started. Vital signs remained stable throughout the procedure. Patient was taken to the OR and time out was completed. The patient was placed in the supine position on the procedure table. The cervical area was prepped and draped in the usual sterile fashion. A timeout was performed. Vital signs were closely monitored during the procedure. Conscious sedation was used during the procedure to decrease patients anxiety. Using cross-table lateral fluoroscopy, the centroid of the trapezoid of the first level was identified, marked, and localized with 1% lidocaine 0.2 ml at each level for skin and subcutaneous infiltration . Subsequently, a 25 G 3.5" Quinke spinal needle was advanced guided by fluoroscopy to the centroid of the trapezoid . [place] tip position was confirmed using anteroposterior and lateral fluoroscopy. Subsequently, 0.5 mL of 4% lidocaine was injected at each level. COMPLICATIONS: No acute complications. COMMENTS: No contrast was used as the patient is ALLERGIC to iodinated contrast dye DISPOSITION / PLANS: The patient was placed in a supine position and transferred to the recovery area in a stable condition for observation and was discharged from the recovery room after meeting discharge criteria. Home discharge instructions given to the patient by the staff. The patient will follow up in clinic in 2 weeks.
[2019-04-13 09:36] VITALS: BP 138/85; PULSE 70; RESP 16
--- NOTE | 2019-04-13 17:32 | FL ---
Fluoroscopy HISTORY: Pain 12 seconds fluoroscopy time supplied to the referring clinician. 3 intraoperative C-arm images docum ent the procedure. See dictated report from anesthesia.
== END 2019-04-13 09:44 | disposition home or self-care (01) ==
LOC: ORPAIN 07:23
PROVIDERS: ATTEND Anesthesiology
DX: M47.812 Spondylosis without myelopathy or radiculopathy, cervical region (principal); M50.321 Other cervical disc degeneration at C4-C5 level; M48.02 Spinal stenosis, cervical region; Z87.891 Personal history of nicotine dependence; Z79.811 Long term (current) use of aromatase inhibitors; Z79.1 Long term (current) use of non-steroidal anti-inflammatories (NSAID); Z79.899 Other long term (current) drug therapy; Z91.041 Radiographic dye allergy status; Z91.048 Other nonmedicinal substance allergy status; Z88.5 Allergy status to narcotic agent; Z90.710 Acquired absence of both cervix and uterus; Z78.0 Asymptomatic menopausal state
CPT/HCPCS: 64490; 64491; J2250; J3010; 99152

== ENCOUNTER → 2019-05-18 | Outpatient (CLI) | payer MEDICARE ==
[2019-05-18 14:46] VITALS: BP 143/74; PULSE 75; RESP 18
--- NOTE | 2019-05-18 15:33 | P.PAINPG ---
Subjective Progress Note Date: 05/18/19 This is a follow-up visit for this 69 years old female with a chronic history of severe neck pain started almost 2 years ago, the pain is constant intensity of the pain increased over time, she denies any initiating event, she denies any numbness or tingling sensation she denies any weakness in the upper or lower extremities, we've done cervical epidural steroid injections 1, she had 0 benefit from it, and she weeks ago we did a right side cervical medial branch block C3, C4, C5 , and she reported that she had significant decrease in her pain level on the right side, independently. Only for short-term , currently she report that her pain is bilateral But it's more severe on the right side, intensity of the pain is 8/10 and increases with any activity interfering with her quality of life She denies any motor or sensory deficit -Constitutional : Cooperative , not in acute distress . -HEENT : nech ; supple , no Lymphadenopathy , no Thyromegaly , :eyes : no icterus, no photophobia . : ENT normal oropharynx , no Thrush - Respiratory : Chest clear to auscultations Bilaterally , no wheezing . - Cardiovascular : regular rate and rhythem , S1 , S2 , no S3 , no S4. - Gastrointestina l: abdomen soft no tenderness , no organomegally . - Genitourinary : Defferred . -Integumentary : No cellulitis , no ulcers , normal skin turgor , no cyanotic . - neurologic : Cranial nerve II to XII intact , no focal neurological deffecit -psychatric : alert , oriented X 3 , appropriate affect , intact judgment and insight . -Lymphatic : no Lymphadenopathy. - musculoskeltal: normal gait Cervical Spine motor stregnth in the deltoid and biceps, normal right side , normal Left side motor stregnth biceps and the wrist extensors normal right side ,normal left side . motor stregnth in the triceps muscle . normal Right side , normal Left side deep tendon reflexes normal at the biceps , normal at Brachioradialis , normal at triceps. Spurling test = positive Neck distraction test= positive Reyes sign= positive cervical facet loading test = positive bilaterally. Lumber spine moter stegnth lower extremities ,thigh and legs 5/5 Right side , 5/5 Left side Results Comments: MRI of the cervical spine done at the [facility] 45 C5 6 C6 7 multilevel cervical degenerative disc disease and multilevel cervical spondylosis with facet hypertrophy and there is mild canal stenosis Assessment and Plan Plan: Assessment and plan=chronic neck pain secondary to cervical degenerative disc disease and cervical spondylosis with facet arthropathy, Patient will be scheduled to have diagnostic medial branch block cervical area C3, C4 , C5 bilaterally (Last procedure patient had right-sided medial branch block inject . Objective - Vital Signs Vital signs: Vital Signs Temp Pulse 75 05/18/19 14:37 Resp 18 05/18/19 14:37 BP 143/74 05/18/19 14:37 Pulse Ox 99 05/18/19 14:37 Intake & Output 05/17/19 05/18/19 05/18/19 18:59 06:59 18:59 Weight 95.708 kg PQRS Measure Charge Sheet Measure #130: Documentation of Current Meds in Medical Chart: Patient's medications documented in chart Measure #226: Tobacco Use: Screen & Cessation Intervention: Pt not a tobacco user Measure #111: Pneumonia Vaccination: Pneumococcal vaccine NOT administered or previously given Measure #47: Advance Care Plan: Advance care planning discussed & documented, pt chose/unable to give Measure #412: Opioid Treatment Agreement: No documentation of signed opioid tr eatment agreement Measure #408: Opioid Therapy Follow-up Evaluation: Patient had NO f/u eval minimum every 3 months during opioid therapy Measure #317: Preventitive Care & Scrn High Bld Press & F/U: Pre-hypertensive or hypertensive BP documented, pt will f/u with PCP Measure #128: Body Mass Index (BMI) Screening & Follow-up: BMI documented ABOVE normal parameters - f/u documented Measure #131: Pain Assessment & Follow-up: Pain positive & plan documented, Follow-up scheduled Measure #431: Unhealthy Alcohol Use Preventative Care & Scrn: Patient not identified as an unhealthy alcohol user PQRS Narrative: Smoking Status Never smoker Blood Pressure 143/74 Pain Intensity [Left Neck] 8 Scale Used Numeric (1 - 10) Hx Alcohol Use (MH) Yes: rarely Home Medications: Ambulatory Orders Allopurinol [Zyloprim] 300 mg PO DAILY 09/18/18 Anastrozole [Arimidex] 1 mg PO HS 09/18/18 Calcium Carbonate [Calcium] 600 mg PO BID 09/18/18 Hydrochlorothiazide 25 mg PO DAILY 09/18/18 Meloxicam [Mobic] 15 mg PO DAILY 09/18/18 Multivitamins, Thera [Multivitamin (formulary)] 1 tab PO DAILY 09/18/18 Propranolol [Inderal] 20 mg PO BID 09/18/18 Ergocalciferol (Vitamin D2) [Vitamin D2] 50,000 unit PO Q7D 03/12/19 ALPRAZolam [Xanax] 0.5 mg PO DAILY PRN 03/23/19 Indomethacin [Indocin] 25 mg PO DIRECTED PRN 04/22/19 Controlled Substance Measures - Controlled Substance Measures Is patient prescribed a controlled substance at discharge?: No
== END ==
LOC: PNWHC3 13:42
PROVIDERS: ATTEND Specialist
DX: G89.29 Other chronic pain (principal); M50.30 Other cervical disc degeneration, unspecified cervical region; M47.812 Spondylosis without myelopathy or radiculopathy, cervical region; M46.96 Unspecified inflammatory spondylopathy, lumbar region; Z79.899 Other long term (current) drug therapy; Z79.1 Long term (current) use of non-steroidal anti-inflammatories (NSAID); Z79.811 Long term (current) use of aromatase inhibitors
CPT/HCPCS: 99211

== ENCOUNTER 2019-05-20 07:24 | Day surgery (SDC) | payer MEDICARE ==
[2019-05-20] MEDS ORDERED: LACTATED RINGERS 1,000 ML IV SCH (08:04)
[2019-05-20 08:21] VITALS: TEMP 97.8
[2019-05-20] MEDS ORDERED: ONDANSETRON 4 MG/2 ML VIAL IVP ONE (08:36)
[2019-05-20] MEDS ORDERED: LIDOCAINE 1% 20 ML VIAL (10MG/ML) FOR IV START INTRADERMA ONE (08:36)
--- NOTE | 2019-05-20 09:09 | P.PCN ---
Date of Procedure: 05/20/19 Procedure(s) Performed: PREOPERATIVE DIAGNOSIS: Cervical Spondylosis with Facet Arthropathy.without myelopathy POSTOPERATIVE DIAGNOSIS: Cervical Spondylosis Facet Arthropathy. Without myelopathy PROCEDURES: Diagnostic bilateral C3, C4 , C5 , medial branch blocks, with fluoroscopic guidance (fluoroscopy images available in radiology department ) to block the facet joints at C3-4 , C4 -5. ANESTHESIA: Local with 1% lidocaine; moderate sedation with Versed.2 mg , and fentanyl 100 micrograms EBL: Minimal PROCEDURE INDICATION: The patient with neck pain secondary to cervical arthropathy unresponsive to more conservative treatments. PROCEDURE DESCRIPTION / TECHNIQUE: The patient was seen and identified in the preoperative area. Risks, benefits, complications, and alternatives were discussed with the patient, the patient agreed to proceed with the procedure and signed the consent. IV was started. Vital signs remained stable throughout the procedure. Patient was taken to the OR and time out was completed. The patient was placed in the prone position on the procedure table. A pillow was placed under the patients chest to increase the cervical interlaminar space. The cervical area was prepped and draped in the usual sterile fashion. Critical pause was taken. Vital signs were closely monitored during the procedure. Conscious sedation was used during the procedure to decrease patients anxiety. Using cross-table lateral fluoroscopy, the centroid of the trapezoid of right C3, C4 , C5 was identified, marked, and localized with 1% lidocaine 1 ml at each level for skin and Sub Q infiltrations . Subsequently, a 22 G 3 spinal needle was advanced guided by fluoroscopy to the centroid of the trapezoid of Right C3, C4 , C5, Gillett tip position was confirmed at the centroid of the trapezoids of Right C3 , C4 , C5 with anteroposterior fluoroscopy. Subsequently, 2 ml of preservative-free Ropivacaine 0.5% mixed with Depo- Medrol 20 mg and half ml of the mixture was injected after negative aspiration for blood and CSF. Gillett was then removed intact the same procedure was repeated at the left C3, C4, C5 , levels. COMPLICATIONS: No acute complications. DISPOSITION / PLANS: The patient was placed in a supine position and transferred to the recovery area in a stable condition for observation and was discharged from the recovery room after meeting discharge criteria. Home discharge instructions given to the patient by the staff. The patient was reexamined prior to discharge. The patient will schedule a follow up in the clinic in 2-4 weeks.
[2019-05-20 09:18] VITALS: RESP 16
[2019-05-20 09:37] VITALS: BP 143/88; PULSE 63
[2019-05-20] MEDS ORDERED: IV FLUID CONTINUATION 1,000 ML IV ONE (09:43)
--- NOTE | 2019-05-20 10:52 | FL ---
EXAMINATION TYPE: FL guided pain mgmt statistic DATE OF EXAM: 05/20/2019 FLUOROSCOPY Fluoroscopy time of 16 seconds was used during bilateral cervical facet blocks. 4 image/s document/s the procedure.
== END 2019-05-20 09:53 | disposition home or self-care (01) ==
LOC: ORPAIN 07:24
PROVIDERS: ATTEND Specialist
DX: G89.29 Other chronic pain (principal); M47.812 Spondylosis without myelopathy or radiculopathy, cervical region; M50.322 Other cervical disc degeneration at C5-C6 level; Z79.811 Long term (current) use of aromatase inhibitors; Z79.1 Long term (current) use of non-steroidal anti-inflammatories (NSAID); Z88.5 Allergy status to narcotic agent; Z91.041 Radiographic dye allergy status; Z79.899 Other long term (current) drug therapy
CPT/HCPCS: 64490; 64491; J2250; J1030; J2405; J3010; 99152

== ENCOUNTER → 2019-06-03 | Outpatient (CLI) | payer MEDICARE ==
[2019-06-03 11:16] VITALS: BP 143/85; PULSE 85; RESP 18
--- NOTE | 2019-06-03 11:29 | P.PAINPG ---
Subjective Progress Note Date: 06/03/19 Principal diagnosis: Cervical spinal stenosis, cervical spondylosis This is a very pleasant 69-year-old woman with a history of intractable neck pain. She is undergone one previous cervical neural steroid injection and 2 previous diagnostic cervical medial branch nerve blocks. Unfortunately, she reports that none of these procedures were helpful at all for her. She did develop some swelling in her neck after the last procedures. She does not report even a small amount of relief from the procedures. She denies any bowel or bladder dysfunction. She has pain in her neck which prevents her from turning her neck. Objective - Vital Signs Vital signs: Vital Signs Temp Pulse 85 06/03/19 11:10 Resp 18 06/03/19 11:10 BP 143/85 06/03/19 11:10 Pulse Ox Intake & Output 06/02/19 06/03/19 06/03/19 18:59 06:59 18:59 Weight 95.708 kg - Exam General: The patient is alert and oriented. Patient is not sedated Patient answers all question appropriately. Cardiac: Heart is regular in rate and rhythm Respiratory: Clear to auscultation. No audible wheezes. Abdomen: Soft nontender nondistended. Musculoskeletal: Strength is normal bilaterally. Facet loading maneuvers are positive and cervical spine. She is tender to palpation over the cervical spine. She demonstrates a decreased range of motion for axial rotation. Neurological: Reflexes are preserved and symmetric bilaterally. Assessment and Plan (1) Cervical spondylosis without myelopathy Narrative/Plan: Plan of Care 1. Medications: I would recommend the patient continue to use conservative medications such as Tylenol as well as heat and ice to treat her neck pain 2. Interventions: No further interventions are indicated. I would not recommend the patient undergo radio frequency ablation as she received no benefit from the previous diagnostic medial branch nerve blocks. 3. Referrals: I'm encouraging the patient to follow-up with her orthopedic community product specialist to discuss surgical interventions that were previously offered to her. I do not think any further procedural based interventions are indicated. 4. Testing: None 5. Follow-up: Patient will follow up in the pain clinic on an as-needed basis. I recommended she follow-up with her surgeon. Current Visit: Yes Status: Acute Code(s): M47.812 - SPONDYLOSIS W/O MYELOPATHY OR RADICULOPATHY, CERVICAL REGION SNOMED Code(s): 188769636 (2) Cervical spinal stenosis Current Visit: Yes Status: Acute Code(s): M48.02 - SPINAL STENOSIS, CERVICAL REGION SNOMED Code(s): 32921783 PQRS Measure Charge Sheet Measure #130: Documentation of Current Meds in Medical Chart: Patient not eligible for medications to be documented Measure #226: Tobacco Use: Screen & Cessation Intervention: Pt not a tobacco user Measure #111: Pneumonia Vaccination: Pneumococcal vaccine administered or previously received Measure #47: Advance Care Plan: Advance care planning discussed & documented, pt chose/unable to give Measure #412: Opioid Treatment Agreement: No documentation of signed opioid treatment agreement Measure #408: Opioid Therapy Follow-up Evaluation: Patient had NO f/u eval minimum every 3 months during opioid therapy Measure #317: Preventitive Care & Scrn High Bld Press & F/U: Normal blood pressure, f/u not required Measure #128: Body Mass Index (BMI) Screening & Follow-up: BMI documented within normal parameters Measure #131: Pain Assessment & Follow-up: Pain positive & plan documented Measure #431: Unhealthy Alcohol Use Preventative Care & Scrn: Patient not identified as an unhealthy alcohol user PQRS Narrative: Smoking Status Never smoker Blood Pressure 143/85 Pain Intensity [Chest] 8 Scale Used Numeric (1 - 10) Hx Alcohol Use (MH) Yes: rarely Home Medications: Ambulatory Orders Allopurinol [Zyloprim] 300 mg PO DAILY 09/18/18 Anastrozole [Arimidex] 1 mg PO HS 09/18/18 Calcium Carbonate [Calcium] 600 mg PO BID 09/18/18 Hydrochlorothiazide 25 mg PO DAILY 09/18/18 Meloxicam [Mobic] 15 mg PO DAILY 09/18/18 Multivitamins, Thera [Multivitamin (formulary)] 1 tab PO DAILY 09/18/18 Propranolol [Inderal] 20 mg PO BID 09/18/18 Ergocalciferol (Vitamin D2) [Vitamin D2] 50,000 unit PO Q7D 03/12/19 ALPRAZolam [Xanax] 0.5 mg PO DAILY PRN 03/23/19 Indomethacin [Indocin] 25 mg PO DIRECTED PRN 04/22/19 Controlled Substance Measures - Controlled Substance Measures Is patient prescribed a controlled substance at discharge?: No
== END | disposition home or self-care (01) ==
LOC: PNWHC3 11:04
PROVIDERS: ATTEND Pain Medicine Pain Medicine
DX: G89.29 Other chronic pain (principal); M48.02 Spinal stenosis, cervical region; M47.812 Spondylosis without myelopathy or radiculopathy, cervical region; Z79.1 Long term (current) use of non-steroidal anti-inflammatories (NSAID); Z79.899 Other long term (current) drug therapy; Z98.890 Other specified postprocedural states
CPT/HCPCS: 99211

== ENCOUNTER → 2019-06-11 | Outpatient (CLI) | payer MEDICARE ==
--- NOTE | 2019-06-11 12:51 | XR ---
EXAMINATION TYPE: XR chest 2V DATE OF EXAM: 06/11/2019 COMPARISON: None HISTORY: 69-year-old female preoperative evaluation prior to cervical fusion TECHNIQUE: Frontal and lateral views FINDINGS: Heart upper limits of normal in size. Aorta and pulmonary vasculature within normal limits. Strandy a telectasis right lower lung. Surgical clips right breast. Mild interstitial prominence has a chronic appearance. No consolidation or pleural effusion. IMPRESSION: Chronic appearing changes. Strandy right basilar atelectasis. No definite acute process.
== END | disposition home or self-care (01) ==
LOC: RADXRMAIN 10:11
PROVIDERS: ATTEND Family Medicine
DX: Z01.811 Encounter for preprocedural respiratory examination (principal); J98.11 Atelectasis
CPT/HCPCS: 71046

== ENCOUNTER 2019-06-22 11:56 | Day surgery (SDC) | payer MEDICARE ==
[~2019-06-22 11:56] MED LIST changes: +BACITRACIN 50,000 UNIT, POLYMYXIN B 500,000 UNIT in SODIUM CHLORIDE 0.9% IRRIGATIO 1,00... IRRIGATION ONE; -LACTATED RINGERS 1,000 ML IV SCH; +LIDOCAINE 1% 20 ML VIAL (10MG/ML) FOR IV START INTRADERMA PRN; +ONDANSETRON 4 MG/2 ML VIAL IVP ONE
[2019-06-22] MEDS: LACTATED RINGERS 1,000 ML IV SCH ×2 (12:26→12:49)
[2019-06-22] MEDS ORDERED: PROPOFOL 10 MG/ML 20 ML VIAL IV ONE (12:47)
[2019-06-22] MEDS ORDERED: NEOSTIGMINE 1 MG/ML 10 ML VIAL ONE (12:47)
[2019-06-22] MEDS ORDERED: LIDOCAINE 1% INJ 10MG/ML (20 ML MDV) ONE (12:47)
[2019-06-22] MEDS ORDERED: HYDROmorphone (PF) 1 MG/ML ONE (12:47)
[2019-06-22] MEDS ORDERED: GLYCOPYRROLATE 0.2 MG/ML 2 ML VIAL ONE (12:47)
[2019-06-22] MEDS ORDERED: fentaNYL (PF) 50 MCG/ML 2 ML AMP ONE (12:47)
[2019-06-22] MEDS ORDERED: ePHEDrine SULFATE/0.9% NACL/PF 50 MG/5 ML SYRINGE IV ONE (12:47)
[2019-06-22] MEDS ORDERED: SUCCINYLCHOLINE CHLORIDE 100 MG/5 ML SYR IV ONE (12:47)
[2019-06-22] MEDS ORDERED: MIDAZOLAM 2 MG/2 ML VIAL ONE (12:47)
[2019-06-22] MEDS ORDERED: ROCURONIUM BROMIDE 10 MG/ML 10 ML VIAL IV ONE (12:47)
[2019-06-22] MEDS ORDERED: THROMBIN (BOVINE) 5,000 UNIT VIAL TOPICAL ONE (12:54)
[2019-06-22] MEDS ORDERED: LIDOCAINE 0.5%-EPI 1:200,000 50 ML VIAL SQ ONE (12:54)
[2019-06-22] MEDS ORDERED: GELATIN SPONGE,ABSORB (LARGE) 1 EACH SPONGE TOPICAL ONE (12:54)
[2019-06-22] MEDS ORDERED: ACETAMINOPHEN TAB 325 MG TAB PO PRN (15:01)
[2019-06-22] MEDS ORDERED: ONDANSETRON 4 MG/2 ML VIAL IVP PRN (15:01)
[2019-06-22] MEDS ORDERED: MAG HYDROX/AL HYDROX/SIMETH 30 ML CUP PO PRN (15:01)
[2019-06-22] MEDS ORDERED: traMADol 50 MG TAB PO PRN (15:02)
[2019-06-22] MEDS ORDERED: ALPRAZolam 0.25 MG TAB PO PRN (15:02)
--- NOTE | 2019-06-22 15:08 | P.OP ---
Date of Procedure: 06/22/19 Preoperative Diagnosis: Severe cervical stenosis C3 4 C4 5 C5 6, cervical degenerative disc disease, neck pain, upper extremity radiculopathy, upper extremity weakness, early myelopathy Postoperative Diagnosis: Same Anesthesia: GETA Pathology: none sent Condition: stable Disposition: PACU Description of Procedure: BRIEF OPERATIVE NOTE Preoperative Diagnosis:Severe cervical stenosis C3 4 C4 5 C5 6, cervical degenerative disc disease, neck pain, upper extremity radiculopathy, upper extremity weakness, early myelopathy Postoperative Diagnosis:Severe cervical stenosis C3 4 C4 5 C5 6, cervical degenerative disc disease, neck pain, upper extremity radiculopathy, upper extremity weakness, early myelopathy Procedure: Anterior cervical decompression with discectomy and fusion C3 4 C4 5 C5 6 Placement of interbody graft C3 4 C4 5 C5 6 Application of anterior cervical plate C3 4 5 6 Surgeon: Dr. Dyson Prestressed Concrete Laborer: Marcus KEY who is present throughout the entire the case persistence during positioning, dissection, exposure, visualization, and all crucial elements of the case as well as closure. Anesthesia: General anesthesia per Dr. Atkins Estimated blood loss: Approximately 50 mL Complications: None apparent Components implanted: K2M [place] anterior cervical plate system with screws measuring 14 mm and Vikos interbody allograft bone graft with 1 mL DBX bone putty Disposition: To recovery room in good stable condition. OPERATIVE INDICATIONS The patient has had long-standing issues in their neck and upper extremities. She has been having worsening pain at her neck which becomes quite severe for her include quite debilitating. She is having severe pain in her upper extremities as well in a radicular pattern some evidence of early dexterity change in her hand. The patient was found have severe cervical stenosis particular at C3 4 C4 5 C5 6 with spondylolisthesis C3 4 which provided well with her neck and upper extremity symptoms. The patient has been through conservative treatment. She is not having any lasting benefit despite aggressive conservative treatment. We discussed various treatment options including surgery, and the patient wishes to proceed with surgery We discussed the risk, patient's alternatives and benefits of surgery including but not limited to, risk of bleeding risk of infection, risk of need for further surgery, risk of decreased, loss of motion, muscle function, malunion nonunion, hardware failure, nerve damage, paralysis, heart attack, and . OPERATIVE SUMMARY After discussing all the risks, patient alternatives and benefits at length, the patient elected to proceed with surgical intervention, signed informed consent, and presented for their procedure. The patient was seen and examined in the preoperative holding area and the surgical site was marked. The patient was given antibiotics and brought to the operating room. The patient was positioned on the operating room table in a supine position being careful to pad any bony prominences and pressure points. The patient was sedated and intubated by anesthesia in standard fashion. Once the airway and C- spine were stabilized the patient's arms were padded and tucked at her side, with her shoulders gently taped. The head was placed in a donut pad with the neck in good neutral alignment and position. We were careful to maintain the patient's cervical spine and good neutral alignment and position throughout. The patient was prepped and draped in a normal standard fashion. An appropriate timeout and keystone protocol performed. We were able to proceed with the surgery. The local wound area was infiltrated with local anesthetic. An incision was made transversely approximately 2-1/2 cm over the appropriate levels at C4 5. Dissection was taken down subcutaneously to the level of the platysma which was split in line with its fibers. Dissection was taken with a carotid approach, with the trachea and esophagus medial and the carotid sheath laterally. We dissected down to the anterior surface of the vertebral bodies. Intraoperative x-ray was taken which showed a marker at the appropriate level at C4 5. With the appropriate level positively confirmed, we were able to proceed with discectomy at the appropriate levels first at C3 4 and then at C4 5 and then at C5 6. All of the operative levels were exposed appropriately. The patient had all their twitches back, and there was no evidence of recurrent laryngeal issue. The wound was copiously irrigated and suctioned dry as had been done periodically throughout the case. At the appropriate level/levels, I established an annulotomy with an 11 blade scalpel. There were large anterior cervical osteophytes which were removed with rongeur. A discectomy was performed with a combination of pituitary rongeurs, curettes, a high-speed bur, and Kerrison rongeurs. The posterior longitudinal ligament was taken down as w ere any posterior osteophytes. This gave good central and bilateral foraminal decompression. There is no evidence of any dural tear or leak. The endplates were prepared with a high-speed bur. With the endplates in good parallel position, I was able to size for the appropriate size interbody graft. The wound was irrigated and suctioned dry the graft was prepared and malleted into position. It had good alignment and position with the anterior surface flush with the anterior surface of the vertebral bodies. This was done similarly the appropriate levels first at C3 4 than at C4 5 and then at C5 6. With the grafts intact, I was able to measure and contour and appropriate sized plate. The plate was positioned at the midline over the appropriate levels from C3 to C6. Screw holes were established with a hand drill and drill guide. Screws were placed in good alignment and position with excellent bony purchase. They were seated under the locking device. The construct was checked and found to be stable. Intraoperative x-ray was taken which showed good alignment and position of the implants at the appropriate levels. There was no evidence of any dural tear or leak. Good hemostasis was maintained. The wound was copiously irrigated and suctioned dry as had been done periodically throughout the case. The platysma was closed with absorbable suture. The subcutaneous tissue was closed. The subcuticular tissue was closed with absorbable suture. The wound was cleaned and dried and dressed appropriately. A soft cervical collar was placed appropriately. The patient was woken up by anesthesia, extubated, transferred back gently to their hospital bed and brought to the recovery room in good stable condition. The patient will be admitted to the hospital for appropriate postoperative care, medical management and monitoring. We will continue to follow them closely about the postoperative course.
[2019-06-22] MEDS: fentaNYL (PF) 50 MCG/ML 2 ML AMP IV PRN ×4 (15:44→16:08)
--- NOTE | 2019-06-22 16:58 | XR ---
EXAMINATION TYPE: XR cervical spine 1V DATE OF EXAM: 06/22/2019 COMPARISON: NONE HISTORY: 69-year-old female however placement TECHNIQUE: Single crosstable lateral view FINDINGS: Patient is intubated. Interval placement of C3-C6 ACDF hardware. IMPRESSION: Intraoperative crosstable lateral view showing placement of C3-C6 ACDF hardware.
--- NOTE | 2019-06-22 16:58 | XR ---
EXAMINATION TYPE: XR cervical spine 1V DATE OF EXAM: 06/22/2019 COMPARISON: NONE HISTORY: Surgery TECHNIQUE: Single view FINDINGS: A single lateral view shows a needle overlying the C4-5 disc. IMPRESSION: C4-5 disc is marked.
[2019-06-22] MEDS ORDERED: ANASTROZOLE 1 MG TAB PO SCH (18:00)
[2019-06-22 18:10] VITALS: BMI 33.3
[2019-06-22] MEDS: HYDROcodone/APAP 5-325MG 1 EACH TAB PO PRN ×2 (18:13→22:18)
[2019-06-22] MEDS: PROPRANOLOL 20 MG TAB PO SCH (20:04)
[2019-06-22] MEDS: CALCIUM CARBONATE 500 MG CHEWABLE PO SCH (20:04)
[2019-06-23 04:16] VITALS: TEMP 98.7
[2019-06-23] MEDS: LACTATED RINGERS 1,000 ML IV SCH (04:28)
[2019-06-23] MEDS: HYDROcodone/APAP 5-325MG 1 EACH TAB PO PRN ×2 (04:30→09:05)
[2019-06-23 08:14] VITALS: BP 126/78; PULSE 77; RESP 18
[2019-06-23] MEDS ORDERED: MULTIVITAMINS, THERA 1 EACH TAB PO SCH (09:00)
[2019-06-23] MEDS ORDERED: HYDROCHLOROTHIAZIDE 25 MG TAB PO SCH (09:00)
[2019-06-23] MEDS ORDERED: CHOLECALCIFEROL 1,000 UNIT TAB PO SCH (09:00)
[2019-06-23] MEDS ORDERED: ALLOPURINOL 300 MG TAB PO SCH (09:00)
[2019-06-23] MEDS: PROPRANOLOL 20 MG TAB PO SCH (09:04)
[2019-06-23] MEDS: CALCIUM CARBONATE 500 MG CHEWABLE PO SCH (09:04)
--- NOTE | 2019-06-23 13:02 | P.DS ---
Providers Date of admission: 06/22/2019 Expected date of discharge: 06/23/19 Attending physician: Sandra Dyson Primary care physician: Maryann Segura - Discharge Diagnosis(es) (1) Degenerative disc disease, cervical Current Visit: Yes Status: Acute (2) Cervicalgia Current Visit: Yes Status: Acute (3) Upper extremity weakness Current Visit: Yes Status: Acute (4) Radiculopathy affecting upper extremity Current Visit: Yes Status: Acute (5) Cervical spinal stenosis Current Visit: No Status: Acute (6) History of hypertension Current Visit: Yes Status: Acute (7) History of hyperlipidemia Current Visit: Yes Status: Acute Hospital Course: This is a pleasant 69-year-old female who presented with C3-4, C4-5, and C5-6 degenerative disc disease and severe cervical stenosis with cervicalgia and upper extremity radiculopathy with weakness and early cervical myelopathy who and failed outpatient conservative therapy. She was admitted for a C3-4, C4-5, and C5-6 anterior cervical decompression and fusion. The patient tolerated the procedure well and did well postoperatively. she has some difficulty with eating large solid foods and taking some of her pills but has been able to eat softer foods and swallow liquids without any significant difficulty. She has some soreness over the shoulders bilaterally. She is not currently complaining of any significant cervical pain. She does feel she has some generalized swelling in her cervical spine. Her pain has been adequately controlled with medications. She feel she is ready for discharge home today. She has been able to ambulate to the restroom and has been able to bathe herself without difficulty. Condition on day of discharge stable. Patient will be discharged home. Patient was cleared preoperatively for surgery by Dr. Segura. Patient currently denies any nausea, vomiting, fever, or chills. Patient is voiding freely without difficulty. Patient may shower Tegaderm dressing intact. Patient may remove Tegaderm dressing in 3 days and shower without a dressing at that time. Patient should keep Steri-Strips intact and allow them to fall off naturally. Patient should refrain from driving until at least after their first follow-up appointment in the office. Patient should avoid excessive neck flexion, extension, rotation, and lateral sidebending; no overhead lifting; no lifting greater than 10 pounds. Patient may resume previously prescribed home medications while avoiding anti- inflammatories over the next 6 weeks postoperatively. Patient states she does have narcotic pain medication at home. Documentation states she takes tramadol in the outpatient setting. She may continue to take this medication as prescribed as needed for relief of symptoms. We discussed that if she needs a refill of this medication or we need to change prescription medications, she may call the office for a refill or for a new prescription. Physical Exam on day of discharge: Patient is awake, alert, and oriented 3 Vital signs stable Good chest excursion with deep inspiration and expiration Abdomen soft nontender No signs or symptoms of DVT; no calf pain Full range of motion of the cervical spine with adequate flexion, extension, and bilateral rotation [employer] Pump Tender strength, thumb strength, interosseous strength, biceps strength, triceps strength, and shoulder strength positive sustained bilaterally Soft cervical collar intact Incision is clean, dry, and intact; no erythema, purulence, or signs of infection Tegaderm dressing and non-stick Telfa intact Procedures: C3-4, C4-5, and C5-6 anterior cervical decompression and fusion Patient Condition at Discharge: Stable Plan - Discharge Summary Discharge Rx Participant: No New Discharge Prescriptions: No Action Multivitamins, Thera [Multivitamin (formulary)] 1 tab PO DAILY Meloxicam [Mobic] 15 mg PO DAILY Anastrozole [Arimidex] 1 mg PO DAILY@1800 Propranolol [Inderal] 20 mg PO BID Hydrochlorothiazide 25 mg PO DAILY Calcium Carbonate [Calcium] 600 mg PO BID Allopurinol [Zyloprim] 300 mg PO DAILY ALPRAZolam [Xanax] 0.25 mg PO BID PRN PRN Reason: Anxiety Cholecalciferol (Vitamin D3) [Vitamin D3] 5,000 unit PO DAILY traMADol HCL [Ultram] 50 mg PO Q6HR PRN PRN Reason: Pain Discharge Medication List Allopurinol [Zyloprim] 300 mg PO DAILY 09/18/18 [History] Anastrozole [Arimidex] 1 mg PO DAILY@1800 09/18/18 [History] Calcium Carbonate [Calcium] 600 mg PO BID 09/18/18 [History] Hydrochlorothiazide 25 mg PO DAILY 09/18/18 [History] Meloxicam [Mobic] 15 mg PO DAILY 09/18/18 [History] Multivitamins, Thera [Multivitamin (formulary)] 1 tab PO DAILY 09/18/18 [History] Propranolol [Inderal] 20 mg PO BID 09/18/18 [History] ALPRAZolam [Xanax] 0.25 mg PO BID PRN 06/09/19 [History] Cholecalciferol (Vitamin D3) [Vitamin D3] 5,000 unit PO DAILY 06/09/19 [History] traMADol HCL [Ultram] 50 mg PO Q6HR PRN 06/09/19 [History] Follow up Appointment(s)/Referral(s): Sandra Dyson DO [Doctor of Osteopathic Medicine] - 07/07/19 3:00 pm (With Mina Thurston) Maryann Segura MD [Primary Care Provider] - 07/01/19 10:30 am Activity/Diet/Wound Care/Special Instructions: 1. Patient may shower with Tegaderm dressing intact. 2. Patient may remove Tegaderm dressing in 3 days and shower without a dressing at that time. 3. Patient should keep Steri-Strips intact and allow them to fall off naturally. 4. Patient should refrain from driving until at least after their first follow- up appointment in the office. 5. Patient should avoid excessive cervical flexion, extension, rotation, sidebending; avoid overhead lifting; no lifting greater than 10 pounds 6. Take medications as prescribed 7. Do not soak in tub Discharge Disposition: HOME SELF-CARE
== END 2019-06-23 13:31 | disposition home or self-care (01) ==
LOC: OR 11:56 → 4SSUR 15:01 → OR 06-23 13:31
PROVIDERS: ATTEND Orthopaedic Surgery Orthopaedic Surgery of the Spine
DX: M48.02 Spinal stenosis, cervical region (principal); M50.01 Cervical disc disorder with myelopathy, high cervical region; M50.121 Cervical disc disorder at C4-C5 level with radiculopathy; M43.12 Spondylolisthesis, cervical region; M25.78 Osteophyte, vertebrae; M47.22 Other spondylosis with radiculopathy, cervical region; F41.1 Generalized anxiety disorder; M43.16 Spondylolisthesis, lumbar region; M47.817 Spondylosis without myelopathy or radiculopathy, lumbosacral region; Z85.3 Personal history of malignant neoplasm of breast; M10.9 Gout, unspecified; E78.5 Hyperlipidemia, unspecified; I10 Essential (primary) hypertension; F39 Unspecified mood [affective] disorder; E78.00 Pure hypercholesterolemia, unspecified; K58.0 Irritable bowel syndrome with diarrhea; Z97.3 Presence of spectacles and contact lenses; Z96.653 Presence of artificial knee joint, bilateral; Z98.42 Cataract extraction status, left eye; Z98.41 Cataract extraction status, right eye; Z83.3 Family history of diabetes mellitus; Z79.1 Long term (current) use of non-steroidal anti-inflammatories (NSAID); Z79.890 Hormone replacement therapy; Z79.899 Other long term (current) drug therapy; Z88.5 Allergy status to narcotic agent; Z91.041 Radiographic dye allergy status
CPT/HCPCS: 22551; 22552 ×2; 22845; 20931; 72020; C1713 ×2; C1762 ×2; J2250; J2710; J0690 ×2; J2405; J2001; J3010; S0170; J1170; J0330; J2704

== ENCOUNTER → 2021-04-25 | Outpatient (CLI) | payer MEDICARE ==
[2021-04-25 11:17] LABS: Basophils % (A) 1 %; Eosinophils # (A) 0.2 k/uL (0-0.7); Eosinophils % (A) 4 %; HCT 41.5 % (34.0-46.0); HGB 13.6 gm/dL (11.4-16.0); Lymphocytes # (A) 1.5 k/uL (1.0-4.8); Lymphocytes % (A) 32 %; MCH 31.8 pg (25.0-35.0); MCHC 32.8 g/dL (31.0-37.0); MCV 96.9 fL (80.0-100.0); Mean Platelet Volume 8.7; Monocytes # (A) 0.3 k/uL (0-1.0); Monocytes % (A) 6 %; Neutrophils # (A) 2.7 k/uL (1.3-7.7); Neutrophils % (A) 56 %; Platelet Count 232 k/uL (150-450); RBC 4.28 m/uL (3.80-5.40); RDW 13.1 % (11.5-15.5); WBC 4.8 k/uL (3.8-10.6)
[2021-04-25 11:29] LABS: ALT 21 U/L (4-34); AST 25 U/L (14-36); African American GFR (CKD) >90 (>60 ml/min/1.73 sqM); Alkaline Phosphatase 95 U/L (38-126); Anion Gap 9 mmol/L; Blood Urea Nitrogen 23 mg/dL (7-17); C Reactive Protein 3.1 mg/dL (<1.0); Calcium 10.1 mg/dL (8.4-10.2); Carbon Dioxide 27 mmol/L (22-30); Chloride 101 mmol/L (98-107); Glucose 170 mg/dL (74-99); Non-African American GFR(CKD) 83 (>60 ml/min/1.73 sqM); Potassium 4.2 mmol/L (3.5-5.1); Sodium 137 mmol/L (137-145); Total Bilirubin 1.2 mg/dL (0.2-1.3); Total Protein 6.5 g/dL (6.3-8.2)
[2021-04-25 11:35] LABS: INR 0.9 (<1.2); Partial Thromboplastin Time 22.4 sec (22.0-30.0); Prothrombin Time 9.8 sec (9.0-12.0)
[2021-04-25 12:04] LABS: Appearance,Urine Clear (Clear); Bacteria,Urine Rare /hpf; Bilirubin,Urine Negative (Negative); Blood,Urine Negative (Negative); Color,Urine Yellow; Glucose,Urine (UA) Negative (Negative); Hyaline Casts,Urine 1 /lpf (0-2); Ketones,Urine Negative (Negative); Leukocyte Esterase,Urine Large (Negative); Mucus,Urine Rare /hpf; Nitrite,Urine Negative (Negative); PH, Urine 5.5 (5.0-8.0); Protein,Urine Negative (Negative); RBC,Urine 1 /hpf (0-5); Specific Gravity,Urine 1.021 (1.001-1.035); Squamous Epithelial Cell,Urine <1 /hpf (0-4); Urobilinogen,Urine <2.0 mg/dL (<2.0); WBC,Urine 7 /hpf (0-5)
[2021-04-25 13:33] LABS: Erythrocyte Sedimentation Rate 15 mm/hr (0-20)
== END | disposition home or self-care (01) ==
LOC: LABPAT 10:23
PROVIDERS: ATTEND Orthopaedic Surgery
DX: Z01.812 Encounter for preprocedural laboratory examination (principal); T84.033A Mechanical loosening of internal left knee prosthetic joint, initial encounter; E78.5 Hyperlipidemia, unspecified; E10.9 Type 1 diabetes mellitus without complications; M25.562 Pain in left knee; Z79.01 Long term (current) use of anticoagulants; I10 Essential (primary) hypertension; Y79.2 Prosthetic and other implants, materials and accessory orthopedic devices associated with adverse incidents
CPT/HCPCS: 36415; 80053; 81001; 85025; 85610; 85652; 85730; 86140; 87070

== ENCOUNTER 2021-05-09 12:49 | Observation (INO) | payer MEDICARE ==
[2021-05-03 13:40] VITALS: BMI 29.9
[~2021-05-09 12:49] MED LIST changes: +ACETAMINOPHEN TAB 500 MG TAB PO PRN; -BACITRACIN 50,000 UNIT, POLYMYXIN B 500,000 UNIT in SODIUM CHLORIDE 0.9% IRRIGATIO 1,00... IRRIGATION ONE; +DEXAMETHASONE SOD PHOSPHATE 4 MG/ML 1 ML VIAL IV ONE; +GABAPENTIN 300 MG CAP PO PRN; +LACTATED RINGERS 1,000 ML IV SCH; -LIDOCAINE 1% 20 ML VIAL (10MG/ML) FOR IV START INTRADERMA PRN; +MELOXICAM 7.5 MG TAB PO PRN; +MIDAZOLAM 2 MG/2 ML VIAL IV PRN; +ROPIVACAINE/EPI/CLONIDINE/KET 50 ML SYRINGE MISCELLANE PRN; +TRANEXAMIC ACID 1,000 MG in SODIUM CHLORIDE 0.9% 100 ML IVPB PRN; +fentaNYL (PF) 50 MCG/ML 2 ML AMP IV PRN
[2021-05-09 13:13] LABS: Glucose,Whole Blood 157 mg/dL (75-99)
[2021-05-09] MEDS ORDERED: fentaNYL (PF) 50 MCG/ML 2 ML AMP IV ONE (13:34)
--- NOTE | 2021-05-09 13:45 | P.ANPRN ---
Procedure Note - Anesthesia - Nerve Block Performed Left Adductor Canal Infusion Time Out Performed: Yes (1323) Date of Procedure: 05/09/21 Procedure Start Time: 13:25 Procedure Stop Time: 13:31 Location of Patient: PreOp Indication: Acute Post-Operative Pain, Requested by Surgeon Specifically requested for management of pain by : Jose Ramirez Sedation Type: Sedate with meaningful contact maintained Preparation: Sterile Prep, Sterile Dressing Position: Supine Catheter Depth at Skin (cm): 10 Catheter: Indwelling Needle Types: Pajunk Needle Gauge: 21 Ultrasound used to visualize needle placement: Yes Ultrasound used to observe medication spread: Yes Injectate: 0.5% Ropivacaine (see comment for volume) (20CC) Blood Aspirated: No Pain Paresthesia on Injection Noted: No Resistance on Injection: Normal Image Stored and Saved: Yes Events: Uneventful and Well Tolerated Left iPack Single Time Out Performed: Yes (1323) Date of Procedure: 05/09/21 Procedure Start Time: 13:32 Procedure Stop Time: 13:36 Location of Patient: PreOp Indication: Acute Post-Operative Pain, Requested by Surgeon Specifically requested for management of pain by DrJosi: Jose Ramirez Sedation Type: Sedate with meaningful contact maintained Preparation: Sterile Prep, Sterile Dressing Position: Supine Catheter: None Needle Types: Pajunk Needle Gauge: 21 Ultrasound used to visualize needle placement: Yes Ultrasound used to observe medication spread: Yes Injectate: 0.5% Ropivacaine (see comment for volume) (20CC) Blood Aspirated: No Pain Paresthesia on Injection Noted: No Resistance on Injection: Normal Image Stored and Saved: Yes Events: Uneventful and Well Tolerated
[2021-05-09] MEDS ORDERED: ceFAZolin 1,000 MG in SODIUM CHLORIDE 0.9% 1,000 ML IRRIGATION ONE (14:19)
--- NOTE | 2021-05-09 16:05 | P.OP ---
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 Anesthesia: spinal Surgeon: Jose Ramirez Director Of Vital Statistics #1: Marianne Chavez Estimated Blood Loss (ml): 50 Pathology: none sent Condition: stable Disposition: PACU Indications for Procedure: This is a 71-year-old female has had a left total knee arthroplasty performed approximately 18 years ago. She's been complaining of pain and instability of her knee secondary to polyethylene wear. After discussing the surgical nonsurgical treatment options with her at length, I recommended a revision of her left total knee arthroplasty and informed consent was obtained. Operative Findings: The operative findings are consistent with significant polyethylene wear as well as ligamentous instability. Description of Procedure: Patient was seen in the preoperative area consent was reviewed and operative site was marked with a skin marker. An adductor canal pain catheter was placed by anesthesia in the preoperative area. Patient was then brought to the operating room and given preoperative antibiotics intravenously. A spinal anesthetic was administered by the anesthesia department. A tourniquet was placed on the upper thigh and the lower extremity was prepped and draped in usual sterile fashion. A gram of transexamic acid was given. A universal timeout was then performed which confirmed the patient's name, surgical site, ALLERGIES, and consent. The lower extremity was then exsanguinated and tourniquet was inflated to 250 mmHg. A standard and anterior midline approach to the knee was performed. The skin and subcutaneous tissue was dissected down to the patellar tendon. A medial parapatellar arthrotomy was then performed. The knee was then extended, the patellar was everted, and the knee was again flexed. A quadriceps snip was performed in order to aid exposure. Significant amount of scar tissue was excised. There was a significant amount of synovitis secondary to polyethylene wear. Using a small oscillating saw, the cement implant interface was disrupted and the femoral and tibial components were then removed without difficulty. Next, sequential reaming of the femoral canal was then performed by hand. The femur was then sized and the distal cutting block was then placed in the distal femur was then freshened with a cut. Next the 4-in-1 cutting block was then placed, and set for the appropriate rotation. Anterior posterior chamfer cuts were then performed as well as anterior posterior cuts. The trial femur was then placed with appropriate length stem. Next the box cutting guide was placed in the bone for the box was then reamed and removed. Femoral trial was then removed. Attention was then directed to the tibia. Sequential reaming of the tibial canal was then performed with appropriate size. The intramedullary tibial cutting guide was then placed the tibia was then freshened with a minimal resection. The tibia was then sized and the canal was prepared for the stem. The tibial trial was then placed and found to have a good fit. The femoral trial was then placed as well. Next, the insert trials were then sequentially used until the appropriate-sized insert was reached. Knee was able to fully extend and flex to 120 and was stable to varus and valgus and anterior posterior stresses throughout all range of motion. Trials were then removed. The cut surfaces of bone were then irrigated with pulsatile lavage. The knee was also irrigated with Irrisept solution. The components were then opened, the cement was mixed, and the components were then cemented in place. The cement was allowed to harden with the knee in full extension. After the cemented hard ened. The tourniquet was released, and hemostasis was obtained. A second gram of transexamic acid was given. The knee was again irrigated. The knee was again taken through range of motion and found to be stable throughout all range of motion of 0-130, and the patella tracked normally. The quadriceps snip was repaired with #1 Ethibond suture. The fascia was then closed with #2 strata fix suture. The subcutaneous tissue was closed with 3-0 Vicryl and 3-0 strata fix. Exofin glue was used for the skin and placed with the knee in flexion. The patient was placed in a sterile silver dressing. Patient was then transferred to recovery room in stable condition. The assistant associate professor SHAHID Whatley was required due the complexity surgery and the need for a skilled surgical processor. She assisted in positioning, draping, retraction, and closure of the wound.
[2021-05-09] MEDS ORDERED: ONDANSETRON 4 MG/2 ML VIAL IVP PRN (16:32)
[2021-05-09] MEDS ORDERED: MAGNESIUM HYDROXIDE 2,400 MG/10 ML CUP PO PRN (16:32)
[2021-05-09] MEDS ORDERED: HYDROmorphone 0.5 MG/0.5 ML SYRINGE IVP PRN ×2 (16:32)
[2021-05-09] MEDS ORDERED: NA PHOS,M-B/NA PHOS,DI-BA 133 ML ENEMA RECTAL PRN (16:32)
[2021-05-09] MEDS ORDERED: bisacodyL 10 MG SUPP RECTAL PRN (16:32)
[2021-05-09] MEDS ORDERED: NALOXONE 0.4 MG/ML 1 ML VIAL IV PRN (16:32)
[2021-05-09] MEDS ORDERED: Acetaminophen-Codeine 300-30mg TAB PO PRN (16:35)
--- NOTE | 2021-05-09 17:16 | XR ---
EXAMINATION TYPE: XR knee limited LT DATE OF EXAM: 05/09/2021 COMPARISON: NONE HISTORY: Postop TECHNIQUE: 2 views FINDINGS: There is left knee prosthesis. Components appear in anatomic position. IMPRESSION: No complicating process seen.
[2021-05-09] MEDS ORDERED: ROPIVACAINE 0.2%-NS ON-Q PUMP 1,090 MG, EMPTY PAIN BALL 1 EACH MISCELLANE PRN (17:18)
[2021-05-09] MEDS ORDERED: ROPIVACAINE 0.2%-NS ON-Q PUMP 2 MG/ML EACH MISCELLANE ONE (17:21)
[2021-05-09] MEDS: HYDROmorphone 0.5 MG/0.5 ML SYRINGE IVP PRN (20:35)
[2021-05-09] MEDS: SENNOSIDES-DOCUSATE SODIUM 1 EACH TAB PO SCH (20:37)
[2021-05-09] MEDS: ALPRAZolam 0.25 MG TAB PO PRN (20:38)
[2021-05-09] MEDS: ASPIRIN 325 MG TAB PO SCH (20:38)
[2021-05-09] MEDS: SODIUM CHLORIDE 0.9% 1,000 ML IV SCH (20:39)
[2021-05-10] MEDS: PROPRANOLOL 20 MG TAB PO SCH ×3 (00:22→20:47)
[2021-05-10] MEDS: Acetaminophen-Codeine 300-30mg TAB PO PRN ×3 (00:46→17:09)
[2021-05-10] MEDS: HYDROmorphone 0.5 MG/0.5 ML SYRINGE IVP PRN ×2 (06:03→15:10)
[2021-05-10] MEDS: SODIUM CHLORIDE 0.9% 1,000 ML IV SCH ×2 (06:04→07:54)
--- NOTE | 2021-05-10 07:32 | P.PN ---
Progress Note - Text Progress Note Date: 05/10/21 Postoperative day # 1 status post total knee arthroplasty, and adductor canal catheter placed for postoperative analgesia, currently at ropivacaine 0.2% 8 mL per hour and continuous infusion, visual analogue scale is 3/10, patient using oral pain medication for breakthrough pain. Assessment and plan= Acute postoperative pain, adductor canal catheter for pain control, pain is well controlled we'll continue the same management.
[2021-05-10] MEDS ORDERED: traMADol 50 MG TAB PO PRN (07:35)
--- NOTE | 2021-05-10 07:45 | P.PN ---
Subjective Progress Note Date: 05/10/21 Principal diagnosis: History of total left knee arthroplasty. Loosening of components left knee. This is a 71-year-old female who is postop day #1 status post revision total left knee arthroplasty for failed components. She has complained of significant pain today. She states that she had pain when getting up in the night to use the bathroom. She does not feel that her pain is controlled with Tylenol No. 3. She has been evaluated by anesthesia this morning. She denies nausea or vomiting. No fever or chills. Vital signs are stable. Objective - Vital Signs Vital signs: Vital Signs Temp 97.8 F 05/10/21 00:55 Pulse 69 05/10/21 00:55 Resp 14 05/10/21 00:55 BP 102/57 05/10/21 00:55 Pulse Ox 96 05/10/21 00:55 Intake & Output 05/09/21 05/10/21 05/10/21 18:59 06:59 18:59 Intake Total 1611 222 Output Total 50 Balance 1561 222 Weight 89 kg Intake: IV 1251 Oral 360 222 Output: Estimated Blood Loss 50 Other: # Voids 2 1 - Exam This is a pleasant 71-year-old female in no acute distress. She is alert and oriented 3. Exam of the left knee reveals that her dressing is clean, dry and intact. No erythema to the knee. Minimal swelling. She has full foot and ankle motion without difficulty or pain. Neurovascular status to the lower extremity is intact. - Labs Labs: Abnormal Lab Results - Last 24 Hours (Table) 05/09/21 Range/Units 13:11 POC Glucose (mg/dL) 157 H (75-99) mg/dL Assessment and Plan (1) Failed arthroplasty Current Visit: Yes Status: Acute Code(s): T84.019A - BROKEN INTERNAL JOINT PROSTHESIS, UNSP SITE, INIT ENCNTR SNOMED Code(s): 415543644 (2) Status post revision of total replacement of left knee Current Visit: Yes Status: Acute Code(s): Z96.652 - PRESENCE OF LEFT ARTIFICIAL KNEE JOINT SNOMED Code(s): 002633206139420 Plan: The clinical findings are discussed with the patient. I will add gabapentin and Ultram to her pain medication regime. She is ALLERGIC to hydrocodone which causes itching. We will keep her inpatient until tomorrow to get a better handle on her pain. Plan discharged to home tomorrow.
[2021-05-10] MEDS: allopurinoL 300 MG TAB PO SCH (07:52)
[2021-05-10] MEDS: hydroCHLOROthiazide 25 MG TAB PO SCH (07:52)
[2021-05-10] MEDS: MULTIVITAMINS, THERA 1 EACH TAB PO SCH (07:52)
[2021-05-10] MEDS: MELOXICAM 7.5 MG TAB PO SCH (07:52)
[2021-05-10] MEDS: ALPRAZolam 0.25 MG TAB PO PRN (07:52)
[2021-05-10] MEDS: GABAPENTIN 300 MG CAP PO SCH ×2 (07:52→20:45)
[2021-05-10] MEDS: ASPIRIN 325 MG TAB PO SCH ×2 (07:52→20:45)
[2021-05-10 13:33] LABS: Basophils # (A) 0.02 X 10*3/uL (0.00-0.10); Basophils % (A) 0.2 %; Eosinophils # (A) 0.01 X 10*3/uL (0.04-0.35); Eosinophils % (A) 0.1 %; HGB 11.9 g/dL (12.0-15.0); Lymphocytes # (A) 1.61 X 10*3/uL (0.90-5.00); Lymphocytes % (A) 13.1 %; MCHC 32.2 g/dL (32.0-37.0); MCV 96.4 fL (80.0-97.0); Mean Platelet Volume 12.2 fL (9.5-12.2); Monocytes # (A) 0.85 X 10*3/uL (0.20-1.00); Monocytes % (A) 6.9 %; Neutrophils # (A) 9.72 X 10*3/uL (1.80-7.70); Neutrophils % (A) 79.3 %; Platelet Count 202 X 10*3/uL (140-440); RBC 3.84 X 10*6/uL (4.10-5.20); RDW 13.1 % (11.5-14.5); WBC 12.26 X 10*3/uL (4.50-10.00)
[2021-05-10] MEDS ORDERED: TRANEXAMIC ACID 1,000 MG/10 ML VIAL ONE (14:15)
[2021-05-10] MEDS ORDERED: fentaNYL (PF) 50 MCG/ML 2 ML AMP ONE (14:15)
[2021-05-10] MEDS ORDERED: SODIUM CHLORIDE 0.9% 100 ML BAG ONE (14:15)
[2021-05-10] MEDS ORDERED: PROPOFOL 10 MG/ML 20 ML VIAL IV ONE (14:15)
[2021-05-10] MEDS ORDERED: ROPIVACAINE 5 MG/ML 30 ML VIAL ONE (14:15)
[2021-05-10] MEDS ORDERED: MIDAZOLAM 2 MG/2 ML VIAL ONE (14:15)
[2021-05-10] MEDS ORDERED: PHENYLEPHRINE-0.9% NACL SYG 1,000 MCG/10 ML SYRINGE ONE (14:15)
[2021-05-10] MEDS ORDERED: ONDANSETRON 4 MG/2 ML VIAL ONE (14:15)
[2021-05-10] MEDS ORDERED: ANASTROZOLE 1 MG TAB PO SCH (18:00)
[2021-05-10] MEDS: SENNOSIDES-DOCUSATE SODIUM 1 EACH TAB PO SCH (20:46)
--- NOTE | 2021-05-10 22:03 | P.CONS ---
History of Present Illness - History of Present Illness This is a pleasant 71 years old female with past medical history of diabetes mellitus, hypertension, osteoarthritis. Presents with severe osteoarthritis of the left knee, she is status post total left knee arthroplasty. Today is postop day #1. His sitting in bed with no complaints. She denies chest pain or dyspnea. No dizziness. No headache. No abdominal pain. No bowel movement but she is passing gases. Urinary complaints. She has some pain in her left knee surgery site Hemodynamically she is stable. Glucose control. She has mild leukocytosis which is most likely reactive at 12.2 K. Review of Systems CONSTITUTIONAL: No fever, no malaise, no fatigue. HEENT: No recent visual problems or hearing problems. Denied any sore throat. CARDIOVASCULAR: No orthopnea, PND, no palpitations, no syncope. PULMONARY: No shortness of breath, no cough, no hemoptysis. GASTROINTESTINAL: No diarrhea, no nausea, no vomiting, no abdominal pain. Normoactive bowel sounds. NEUROLOGICAL: No headaches, no weakness, no numbness. HEMATOLOGICAL: Denies any bleeding or petechiae. GENITOURINARY: Denies any burning micturition, frequency, or urgency. MUSCULOSKELETAL/RHEUMATOLOGICAL: Denies any joint pain, swelling, or any muscle pain. ENDOCRINE: Denies any polyuria or polydipsia. Past Medical History Past Medical History: Cancer, Diabetes Mellitus, Hypertension, Musculoskeletal Disorder, Osteoarthritis (OA) Additional Past Medical History / Comment(s): rt breast ca- 2016, had surgery & 33 radiation tx., hx of kidney stones, gout, diveticulitis, neck pain., PT STATES NO BP, NO IV'S OR BLOOD DRAWS RIGHT ARM. diet controlled diabetic History of Any Multi-Drug Resistant Organisms: None Reported Past Surgical History: Bladder Surgery, Breast Surgery, Cholecystectomy, Heart Catheterization, Hysterectomy, Joint Replacement, Orthopedic Surgery Additional Past Surgical History / Comment(s): rt breast lumpectomy With lymph nodes, bladder suspension, jessica knee replacement, jessica carpal tunnel,. trigger finger, cataracts, (states heart cath done years ago at [facility]). neck surgery with 4 screws and plate, rt arm cyst removed Past Anesthesia/Blood Transfusion Reactions: Motion Sickness, Postoperative Nausea & Vomiting (PONV) Additional Past Anesthesia/Blood Transfusion Reaction / Comm: anxiety. Smoking Status: Never smoker - Past Family History Brother(s) Family Medical History: Cancer Medications and Allergies Home Medications Medication Instructions Recorded Confirmed Type Allopurinol [Zyloprim] 300 mg PO DAILY 09/18/18 05/03/21 History Anastrozole [Arimidex] 1 mg PO DAILY@1800 09/18/18 05/03/21 History Calcium Carbonate [Calcium] 600 mg PO BID 09/18/18 05/03/21 History Meloxicam [Mobic] 15 mg PO DAILY 09/18/18 05/03/21 History Multivitamins, Thera [Multivitamin 1 tab PO DAILY 09/18/18 05/03/21 History (formulary)] Propranolol [Inderal] 20 mg PO BID 09/18/18 05/03/21 History hydroCHLOROthiazide 25 mg PO DAILY 09/18/18 05/03/21 History [Hydrochlorothiazide] ALPRAZolam [Xanax] 0.25 mg PO DAILY PRN 06/09/19 05/03/21 History Cholecalciferol (Vitamin D3) 5,000 unit PO DAILY 06/09/19 05/03/21 History [Vitamin D3] Ergocalciferol [Vitamin D2 (1250 1,250 mcg PO MO 05/03/21 05/03/21 History Mcg = 25998 Iu)] Acetaminophen-Codeine 300-30mg 1 - 2 tab PO Q6H PRN #32 tablet 05/09/21 Rx [Tylenol #3] Aspirin 325 mg PO BID #60 tab 05/09/21 Rx Ondansetron Odt [Zofran Odt] 1 tab PO Q8HR PRN #10 tab 05/09/21 Rx Sennosides [Senokot] 2 tab PO DAILY PRN #60 tablet 05/09/21 Rx Allergies Allergy/AdvReac Type Severity Reaction Status Date / Time hydrocodone [From Lortab] Allergy Itching Verified 05/03/21 13:26 Iodinated Contrast Media Allergy Unknown Verified 05/03/21 13:26 [Iodinated Contrast- Oral and IV Dye] Influenza Virus Vaccines AdvReac Unknown states she Verified 05/03/21 13:26 did not feel well, felt like she had flu Physical Exam Vitals: Vital Signs Temp Pulse Pulse Resp BP Pulse Ox 05/10/21 07:22 97.7 F 65 18 134/77 100 05/10/21 00:55 97.8 F 69 14 102/57 96 05/09/21 20:25 92 123/71 05/09/21 20:10 86 127/78 05/09/21 20:00 69 14 05/09/21 19:55 81 128/75 05/09/21 19:40 76 138/71 05/09/21 19:25 97.6 F 82 15 129/78 98 05/09/21 17:17 61 18 131/74 98 05/09/21 17:02 50 L 18 129/72 98 05/09/21 16:47 62 18 122/59 100 05/09/21 16:31 96.9 F L 74 12 146/73 94 L Intake and Output 05/09/21 05/10/21 05/10/21 22:59 06:59 14:59 Intake Total 782 Output Total 50 Balance 732 Intake: IV 200 Oral 582 Output: Estimated Blood Loss 50 Other: # Voids 2 1 Weight 89 kg GENERAL: The patient is alert and oriented x3, not in any acute distress. Well developed, well nourished. HEENT: Pupils are round and equally reacting to light. EOMI. No scleral icterus. No conjunctival pallor. Normocephalic, atraumatic. No pharyngeal erythema. No thyromegaly. CARDIOVASCULAR: S1 and S2 present. No murmurs, rubs, or gallops. PULMONARY: Chest is clear to auscultation, no wheezing or crackles. ABDOMEN: Soft, nontender, nondistended, normoactive bowel sounds. No palpable organomegaly. -MUSCULOSKELETAL: No joint swelling or deformity. Left knee wound with dressing in place, rest of exam is deferred to surgery team EXTREMITIES: No cyanosis, clubbing, or pedal edema. NEUROLOGICAL: Gross neurological examination did not reveal any focal deficits. SKIN: No rashes. No petechiae Results CBC & Chem 7: 05/10/21 07:29 Labs: Abnormal Lab Results - Last 24 Hours (Table) 05/10/21 Range/Units 07:29 WBC 12.26 H (4.50-10.00) X 10*3/uL RBC 3.84 L (4.10-5.20) X 10*6/uL Hgb 11.9 L (12.0-15.0) g/dL Hct 37.0 L (37.2-46.3) % Immature Gran # 0.05 H (0.00-0.04) X 10*3/uL Neutrophils # 9.72 H (1.80-7.70) X 10*3/uL Eosinophils # 0.01 L (0.04-0.35) X 10*3/uL Assessment and Plan Assessment: Severe osteoarthritis, status post left knee arthroplasty. Pain management and DVT prophylaxis per surgery team, currently she is on aspirin 325 mg twice a day Reactive leukocytosis, monitored with no need for antibiotics diabetes mellitus Hypertension we Recommend patient follow up with her PCP in one week after discharge, she was instructed with the same Thank you for consulting us and we will follow up with you
[2021-05-11] MEDS: HYDROmorphone 0.5 MG/0.5 ML SYRINGE IVP PRN (02:18)
[2021-05-11] MEDS: GABAPENTIN 300 MG CAP PO SCH (07:38)
[2021-05-11] MEDS: ASPIRIN 325 MG TAB PO SCH (07:39)
[2021-05-11] MEDS: PROPRANOLOL 20 MG TAB PO SCH (07:39)
[2021-05-11] MEDS: allopurinoL 300 MG TAB PO SCH (07:39)
[2021-05-11] MEDS: MULTIVITAMINS, THERA 1 EACH TAB PO SCH (07:39)
[2021-05-11] MEDS: hydroCHLOROthiazide 25 MG TAB PO SCH (07:39)
[2021-05-11] MEDS: MELOXICAM 7.5 MG TAB PO SCH (07:39)
[2021-05-11] MEDS: Acetaminophen-Codeine 300-30mg TAB PO PRN (07:48)
[2021-05-11 07:53] VITALS: BP 127/68; PULSE 78; RESP 18; TEMP 98.5
--- NOTE | 2021-05-11 09:37 | P.DS ---
Providers Date of admission: 05/10/21 13:04 Expected date of discharge: 05/11/21 Attending physician: Jose Ramirez Consults: 05/09/21 16:32 Consult Physician Routine Consulting Provider: Sanjana Patel Consult Reason/Comments: medical management Do you want consulting provider notified?: Yes Primary care physician: Maryann Segura - Discharge Diagnosis(es) (1) Failed arthroplasty Current Visit: Yes Status: Acute (2) Status post revision of total replacement of left knee Current Visit: Yes Status: Acute Hospital Course: This is a 71-year-old female who was last seen with complaint of continued left knee pain. The patient has a known history of total left knee arthroplasty 18 years ago and has had failure of the components.. After discussion and consideration the patient elects to proceed with revision total left knee arthroplasty. The patient is seen preoperatively her primary care physician and cleared for surgery. The patient is admitted to [facility] for revision total left knee arthroplasty. The procedures performed without complication or sequelae. He is doing well postoperatively. Vital signs are stable at discharge. Labs are stable at discharge. the patient is ambulating well with walker with minimal assistance. The patient is discharged to home on postop day #2 pending medical clearance. Please see orders and refer to the [facility] rec for accurate list of medications. Patient Condition at Discharge: Good Plan - Discharge Summary Discharge Rx Participant: No New Discharge Prescriptions: New Sennosides [Senokot] 2 tab PO DAILY PRN #60 tablet PRN Reason: Constipation Acetaminophen-Codeine 300-30mg [Tylenol #3] 1 - 2 tab PO Q6H PRN #32 tablet PRN Reason: Pain Aspirin 325 mg PO BID #60 tab Ondansetron Odt [Zofran Odt] 1 tab PO Q8HR PRN #10 tab PRN Reason: Nausea Gabapentin [Neurontin] 300 mg PO BID 5 Days #10 cap traMADol HCL [Ultram] 50 mg PO Q6HR PRN #28 tab PRN Reason: Pain No Action Multivitamins, Thera [Multivitamin (formulary)] 1 tab PO DAILY Meloxicam [Mobic] 15 mg PO DAILY Anastrozole [Arimidex] 1 mg PO DAILY@1800 Propranolol [Inderal] 20 mg PO BID hydroCHLOROthiazide [Hydrochlorothiazide] 25 mg PO DAILY Calcium Carbonate [Calcium] 600 mg PO BID Allopurinol [Zyloprim] 300 mg PO DAILY ALPRAZolam [Xanax] 0.25 mg PO DAILY PRN PRN Reason: Anxiety Cholecalciferol (Vitamin D3) [Vitamin D3] 5,000 unit PO DAILY Ergocalciferol [Vitamin D2 (1250 Mcg = 43736 Iu)] 1,250 mcg PO MO Discharge Medication List Allopurinol [Zyloprim] 300 mg PO DAILY 09/18/18 [History] Anastrozole [Arimidex] 1 mg PO DAILY@1800 09/18/18 [History] Calcium Carbonate [Calcium] 600 mg PO BID 09/18/18 [History] Meloxicam [Mobic] 15 mg PO DAILY 09/18/18 [History] Multivitamins, Thera [Multivitamin (formulary)] 1 tab PO DAILY 09/18/18 [History] Propranolol [Inderal] 20 mg PO BID 09/18/18 [History] hydroCHLOROthiazide [Hydrochlorothiazide] 25 mg PO DAILY 09/18/18 [History] ALPRAZolam [Xanax] 0.25 mg PO DAILY PRN 06/09/19 [History] Cholecalciferol (Vitamin D3) [Vitamin D3] 5,000 unit PO DAILY 06/09/19 [History] Ergocalciferol [Vitamin D2 (1250 Mcg = 66026 Iu)] 1,250 mcg PO MO 05/03/21 [History] Acetaminophen-Codeine 300-30mg [Tylenol #3] 1 - 2 tab PO Q6H PRN #32 tablet 04/23 04/12 [Rx] Aspirin 325 mg PO BID #60 tab 05/09/21 [Rx] Ondansetron Odt [Zofran Odt] 1 tab PO Q8HR PRN #10 tab 05/09/21 [Rx] Sennosides [Senokot] 2 tab PO DAILY PRN #60 tablet 05/09/21 [Rx] Gabapentin [Neurontin] 300 mg PO BID 5 Days #10 cap 05/11/21 [Rx] traMADol HCL [Ultram] 50 mg PO Q6HR PRN #28 tab 05/11/21 [Rx] Follow up Appointment(s)/Referral(s): Maryann Segura MD [Primary Care Provider] - 1 Week [facility], [NON-STAFF] - As Needed Jose Ramirez DO [Doctor of Osteopathic Medicine] - 2 Weeks Ambulatory/Diagnostic Orders: Continuous Passive Motion (CPM) Machine [DME.AMB1] Time Frame: 3 Weeks, Location: None Selected Patient Instructions/Handouts: *Surgery [facility] - (O&A) Arthroscopic Knee Post-Op Instructions, Revision Total Joint Arthroplasty (DC) Activity/Diet/Wound Care/Special Instructions: Weightbearing as tolerated with a walker. CPM 5-6h daily as tolerated. Leave dressing intact. Dressing may be removed by home care nurse or by patient in 7 days. Then change dressing twice daily until follow up. May shower with initial dressing intact and after removal. If dressing become saturated, please remove. Recommend use of compression stockings daily until follow up to help prevent swelling and blood clots. May remove at night before sleeping. Please take aspirin 325mg twice daily for 30 days to prevent blood clots. Please follow up with [facility] and call with any questions or concerns, . Discharge Disposition: HOME WITH HOME HEALTH SERVICES
[2021-05-11] MEDS: SODIUM CHLORIDE 0.9% 1,000 ML IV SCH (10:40)
== END 2021-05-11 13:12 | disposition home health service (06) ==
LOC: OR 12:49 → 4SSUR 17:40 → OR 05-10 13:04 → 4SSUR 05-10 13:04
PROVIDERS: ADMIT Orthopaedic Surgery; ATTEND Orthopaedic Surgery
DX: T84.093A Other mechanical complication of internal left knee prosthesis, initial encounter (principal); Y79.2 Prosthetic and other implants, materials and accessory orthopedic devices associated with adverse incidents; M25.362 Other instability, left knee; M17.12 Unilateral primary osteoarthritis, left knee; I10 Essential (primary) hypertension; E11.9 Type 2 diabetes mellitus without complications; D72.828 Other elevated white blood cell count; M10.9 Gout, unspecified; F41.9 Anxiety disorder, unspecified; M54.2 Cervicalgia; M65.30 Trigger finger, unspecified finger; Z79.82 Long term (current) use of aspirin; Z79.899 Other long term (current) drug therapy; Z79.811 Long term (current) use of aromatase inhibitors; Z79.1 Long term (current) use of non-steroidal anti-inflammatories (NSAID); Z88.7 Allergy status to serum and vaccine; Z88.5 Allergy status to narcotic agent; Z91.041 Radiographic dye allergy status; Z98.41 Cataract extraction status, right eye; Z98.42 Cataract extraction status, left eye; Z87.442 Personal history of urinary calculi; Z90.710 Acquired absence of both cervix and uterus; Z85.3 Personal history of malignant neoplasm of breast; Z90.49 Acquired absence of other specified parts of digestive tract
CPT/HCPCS: 27486; 97116; 97530; 97161; 64999; 64448; 76942; 85025; 73560; G0378 ×2; C1776; C1713; J2250 ×2; J1100; J0690 ×3; J2405 ×2; J3010 ×2; S0170; J2795 ×2; J2370; J2704; J1170 ×3

== ENCOUNTER 2022-03-05 09:11 | Observation (INO) | payer MEDICARE ==
[2022-03-01 11:54] VITALS: BMI 29.6
[~2022-03-05 09:11] MED LIST changes: -ACETAMINOPHEN TAB 500 MG TAB PO PRN; -DEXAMETHASONE SOD PHOSPHATE 4 MG/ML 1 ML VIAL IV ONE; -GABAPENTIN 300 MG CAP PO PRN; -LACTATED RINGERS 1,000 ML IV SCH; -MELOXICAM 7.5 MG TAB PO PRN; -MIDAZOLAM 2 MG/2 ML VIAL IV PRN; -ONDANSETRON 4 MG/2 ML VIAL IVP ONE; +Pre Op ABX Message 1 EACH MISC MISCELLANE ONE; -ROPIVACAINE/EPI/CLONIDINE/KET 50 ML SYRINGE MISCELLANE PRN; -TRANEXAMIC ACID 1,000 MG in SODIUM CHLORIDE 0.9% 100 ML IVPB PRN; -fentaNYL (PF) 50 MCG/ML 2 ML AMP IV PRN
[2022-03-05] MEDS ORDERED: ONDANSETRON 4 MG/2 ML VIAL ONE (09:56)
[2022-03-05] MEDS ORDERED: LACTATED RINGERS 1,000 ML IV ONE ×3 (10:00→14:51)
[2022-03-05] MEDS ORDERED: DEXAMETHASONE SOD PHOSPHATE 4 MG/ML 1 ML VIAL IV ONE (10:01)
[2022-03-05] MEDS ORDERED: ONDANSETRON 4 MG/2 ML VIAL IVP ONE (10:01)
[2022-03-05] MEDS ORDERED: INSULIN ASPART (NovoLOG) 100 UNIT/ML VIAL SQ STA (10:04)
[2022-03-05 10:05] LABS: Glucose,Whole Blood 281 mg/dL (75-99)
[2022-03-05] MEDS ORDERED: fentaNYL (PF) 50 MCG/ML 2 ML AMP IVP ONE (10:25)
[2022-03-05] MEDS ORDERED: MIDAZOLAM 2 MG/2 ML VIAL IVP ONE (10:25)
--- NOTE | 2022-03-05 10:50 | P.ANPRN ---
Procedure Note - Anesthesia - Nerve Block Performed Left Adductor Canal Single Time Out Performed: Yes (1024) Date of Procedure: 03/05/22 Procedure Start Time: 10:25 Procedure Stop Time: 10:32 Location of Patient: PreOp Indication: Acute Post-Operative Pain, Requested by Surgeon Specifically requested for management of pain by DrJosi: Jose Ramirez Sedation Type: Sedate with meaningful contact maintained Preparation: Sterile Prep Position: Supine Catheter: None Needle Types: Pajunk Needle Gauge: 21 Ultrasound used to visualize needle placement: Yes Ultrasound used to observe medication spread: Yes Injectate: 0.5% Ropivacaine (see comment for volume) (30cc) Blood Aspirated: No Pain Paresthesia on Injection Noted: No Resistance on Injection: Normal Image Stored and Saved: Yes Events: Uneventful and Well Tolerated
[2022-03-05] MEDS ORDERED: SENNOSIDES-DOCUSATE SODIUM 1 EACH TAB PO PRN (10:55)
[2022-03-05] MEDS ORDERED: ONDANSETRON 4 MG/2 ML VIAL IVP PRN (10:55)
[2022-03-05] MEDS ORDERED: diphenhydrAMINE 25 MG CAP PO PRN (10:55)
[2022-03-05] MEDS ORDERED: TEMAZEPAM 15 MG CAP PO PRN (10:55)
[2022-03-05] MEDS ORDERED: HYDROmorphone 0.5 MG/0.5 ML SYRINGE IVP PRN ×2 (10:55)
[2022-03-05] MEDS ORDERED: ceFAZolin 1,000 MG in SODIUM CHLORIDE 0.9% 1,000 ML IRRIGATION ONE (11:31)
--- NOTE | 2022-03-05 11:48 | P.OP ---
Date of Procedure: 03/05/22 Preoperative Diagnosis: Rupture quadriceps tendon left knee Postoperative Diagnosis: Rupture quadriceps tendon left knee Procedure(s) Performed: Repair quadriceps tendon left knee Anesthesia: KIANNA Surgeon: Jose Ramirez Deck Mate #1: Nichelle Brandt Estimated Blood Loss (ml): 20 Pathology: none sent Condition: stable Disposition: PACU Indications for Procedure: This is a 71-year-old female that had a revision left total knee arthroplasty proximally 7 months ago. She's developed difficulty extending her knee with a palpable defect in her quadriceps tendon. After discussing the surgical and nonsurgical treatment options with her at length I've recommended open repair of the quadriceps tendon and informed consent was obtained. Operative Findings: The operative findings are consistent with a rupture of quadriceps tendon Description of Procedure: Patient was seen in the preoperative area and the consent was reviewed and the operative site was marked with a skin marker. The patient verified the procedure and the operative site. An adductor canal block was placed by anesthesia in the preoperative area. The patient was then brought to the operating room and given preoperative antibiotics intravenously. A general anesthetic was administered by the anesthesia department. A tourniquet was placed on the upper thigh and the lower extremity was prepped with chlorhexidine and draped in usual sterile fashion. A universal timeout was then performed which confirmed the patient's name, surgical site, ALLERGIES, and consent. The lower extremity was then exsanguinated and tourniquet was inflated to 250 mmHg. A standard anterior midline approach to the knee was performed with the prior scar being excised. The skin and subcutaneous tissue were sharply dissected down to the patellar tendon. There is found to be a rupture of the quadriceps tendon proximal to the patella. The edges of the rupture were identified and freshened. Next, using #2 Ethibond suture the quadriceps tendon was repaired. After the repair, the knee was copiously irrigated. Tourniquet was released and hemostasis obtained. The subcutaneous tissue was closed with 3-0 Vicryl and 3-0 strata fix. Exofin glue was used for the skin and placed with the knee in flexion. After the glue had dried, and Optafoam silver impregnated dressing was applied. The patient was then placed in an IROM brace locked in extension. The patient was then transferred to recovery room in stable condition. The family service assistant SHAHID Dobbs was required due the complexity surgery and the need for a skilled surgical processor. She assisted in positioning, draping, retraction, and closure of the wound.
[2022-03-05] MEDS ORDERED: HYDROmorphone 0.5 MG/0.5 ML SYRINGE IVP ONE ×5 (12:35→14:44)
[2022-03-05] MEDS: HYDROmorphone 0.5 MG/0.5 ML SYRINGE IVP PRN ×2 (12:42→17:39)
[2022-03-05 13:25] LABS: Glucose,Whole Blood 263 mg/dL (75-99)
[2022-03-05] MEDS ORDERED: INSULIN ASPART (NovoLOG) 100 UNIT/ML VIAL SQ ONE (13:25)
[2022-03-05] MEDS: LACTATED RINGERS 1,000 ML IV SCH ×2 (16:11→21:42)
[2022-03-05] MEDS: traMADol 50 MG TAB PO SCH ×3 (16:14→21:40)
[2022-03-05 17:19] LABS: Glucose,Whole Blood 254 mg/dL (75-99)
[2022-03-05 19:54] VITALS: RESP 16
[2022-03-05 20:22] LABS: Glucose,Whole Blood 264 mg/dL (75-99)
[2022-03-06] MEDS: HYDROmorphone 0.5 MG/0.5 ML SYRINGE IVP PRN (04:20)
[2022-03-06 07:18] LABS: Glucose,Whole Blood 235 mg/dL (75-99)
[2022-03-06] MEDS ORDERED: INSULIN ASPART (NovoLOG) 100 UNIT/ML VIAL SQ SCH ×2 (07:30→21:47)
[2022-03-06] MEDS: traMADol 50 MG TAB PO SCH ×2 (08:45→12:55)
--- NOTE | 2022-03-06 09:17 | P.DS ---
Providers Date of admission: 03/06/22 07:51 Expected date of discharge: 03/06/22 Attending physician: Jose Ramirez Consults: 03/06/22 09:07 Consult Physician Urgent Consulting Provider: Maryann Segura Consult Reason/Comments: Medical management Do you want consulting provider notified?: Yes Primary care physician: Maryann Segura - Discharge Diagnosis(es) (1) Injury of quadriceps tendon Current Visit: Yes Status: Acute (2) Status post revision of total replacement of left knee Current Visit: No Status: Acute Hospital Course: This is a 71-year-old female that had a revision left total knee arthroplasty approximately 7 months ago. She's developed difficulty extending her knee with a palpable defect in her quadriceps tendon. After discussing the surgical and nonsurgical treatment options with her at length I've recommended open repair of the quadriceps tendon and informed consent was obtained. The patient is taken to the operating room on 03/05/2022 for open quadriceps repair of the left knee. The procedure is performed without complications or sequelae. She is doing well on postoperative day #1. We are awaiting physical therapy evaluation. She will be discharged to home today if she does well with therapy. Please see med rec for accurate list of home medications. Patient Condition at Discharge: Good Plan - Discharge Summary Discharge Rx Participant: Yes New Discharge Prescriptions: New Celecoxib [CeleBREX] 200 mg PO DAILY #30 capsule Aspirin 325 mg PO BID #60 tab Sennosides-Docusate Sodium [Senokot-S] 1 tab PO BID #60 tablet traMADol HCL [Ultram] 50 mg PO Q6HR PRN #28 tab PRN Reason: Pain Ondansetron Odt [Zofran Odt] 4 mg PO Q8HR PRN #14 tab PRN Reason: Nausea No Action Multivitamins, Thera [Multivitamin (formulary)] 1 tab PO DAILY Meloxicam [Mobic] 15 mg PO DAILY Anastrozole [Arimidex] 1 mg PO DAILY@1800 Propranolol [Inderal] 20 mg PO BID hydroCHLOROthiazide [Hydrochlorothiazide] 25 mg PO DAILY Calcium Carbonate [Calcium] 600 mg PO BID Allopurinol [Zyloprim] 300 mg PO DAILY Cholecalciferol (Vitamin D3) [Vitamin D3] 5,000 unit PO DAILY Atorvastatin Calcium [Lipitor] 20 mg PO HS Discharge Medication List Allopurinol [Zyloprim] 300 mg PO DAILY 09/18/18 [History] Anastrozole [Arimidex] 1 mg PO DAILY@1800 09/18/18 [History] Calcium Carbonate [Calcium] 600 mg PO BID 09/18/18 [History] Meloxicam [Mobic] 15 mg PO DAILY 09/18/18 [History] Multivitamins, Thera [Multivitamin (formulary)] 1 tab PO DAILY 09/18/18 [History] Propranolol [Inderal] 20 mg PO BID 09/18/18 [History] hydroCHLOROthiazide [Hydrochlorothiazide] 25 mg PO DAILY 09/18/18 [History] Cholecalciferol (Vitamin D3) [Vitamin D3] 5,000 unit PO DAILY 06/09/19 [History] Atorvastatin Calcium [Lipitor] 20 mg PO HS 03/01/22 [History] Aspirin 325 mg PO BID #60 tab 03/05/22 [Rx] Celecoxib [CeleBREX] 200 mg PO DAILY #30 capsule 03/05/22 [Rx] Ondansetron Odt [Zofran Odt] 4 mg PO Q8HR PRN #14 tab 03/05/22 [Rx] Sennosides-Docusate Sodium [Senokot-S] 1 tab PO BID #60 tablet 03/05/22 [Rx] traMADol HCL [Ultram] 50 mg PO Q6HR PRN #28 tab 03/05/22 [Rx] Follow up Appointment(s)/Referral(s): Jose Ramirez DO [Doctor of Osteopathic Medicine] - 10 Days Activity/Diet/Wound Care/Special Instructions: May bear weight as tolerated w walker and knee immobilizer on. Keep Optifoam dressing intact 7 days post op. Maintain knee immobilizer, may remove for daily skin checks.
--- NOTE | 2022-03-06 09:36 | P.EN ---
Patient does have history of diet controlled diabetes and follows with Dr. Maryann capps in the outpatient setting. Patient has been using diet control method although during hospitalization patient was noted to have continued elevated blood sugars. Hemoglobin A1c was ordered which is pending at this time and patient to follow-up with primary care provider [facility] and will initiate low-dose oral diabetic agent and will need patient to test 3 times daily on her Accu-Cheks and record the readings for primary care follow-up. Patient and primary care provider to discuss further about other medications or possible insulin requirements. Diagnoses Diabetes mellitus, type II, uncontrolled with hyperglycemia
[2022-03-06] MEDS: LACTATED RINGERS 1,000 ML IV SCH (10:01)
[2022-03-06 11:51] LABS: Glucose,Whole Blood 230 mg/dL (75-99)
[2022-03-06 12:42] LABS: African American GFR (CKD) >90 (>60 ml/min/1.73 sqM); Anion Gap 8 mmol/L; Blood Urea Nitrogen 18 mg/dL (7-17); Carbon Dioxide 28 mmol/L (22-30); Chloride 97 mmol/L (98-107); Glucose 215 mg/dL (74-99); Non-African American GFR(CKD) 82 (>60 ml/min/1.73 sqM); Potassium 3.4 mmol/L (3.5-5.1); Sodium 133 mmol/L (137-145)
[2022-03-06] MEDS ORDERED: POTASSIUM CHLORIDE ER 20 MEQ TAB.ER PO STA (13:02)
[2022-03-06] MEDS ORDERED: LOSARTAN 25 MG TAB PO SCH (13:15)
[2022-03-06 14:10] VITALS: BP 150/74; PULSE 76; TEMP 98.1
--- NOTE | 2022-03-06 15:52 | P.CONS ---
History of Present Illness - Reason for Consult Consult date: 03/06/22 Medical management, elevated blood sugars, postop left knee revision - History of Present Illness This is a very pleasant 71-year-old female who follows with Dr. Maryann foley in the outpatient setting and was admitted under orthopedic services for rupture of the quadriceps tendon of the left knee and underwent revision and repair of his quadriceps tendon. Patient previously approximately 7 months ago underwent left total knee arthroplasty. Patient has a past medical history of right breast cancer in 2017 surgery and radiation treatments, diabetes mellitus, diet controlled, hypertension, osteoarthritis and is being closely monitored. Patient has a knee brace applied and was initially scheduled for discharge and medical management was consulted for diabetes management as patient was having elevated blood sugars during hospitalization. Patient reports she has been closely monitoring her blood sugars and hemoglobin A1c in the outpatient setting with her provider and using diet control methods. Unsure of most recent hemoglobin A1c and this was ordered. Patient reluctant to start insulin and will obtain hemoglobin A1c and start on low-dose metformin 500 mg twice daily and have the patient receive a glucometer and continue with testing and keep a diary for primary care follow-up and to discuss medication changes. Patient also a bit hyponatremic as labs revealed a sodium of 133 and potassium was 3.4, BUN was 18 and creatinine was 0.73 with random sugar of 230. Patient does take lisinopril and hydrochlorothiazide in the outpatient setting and recommended holding and will initiate low-dose losartan 25 mg and again start the patient on metformin. Patient was continued on Accu-Cheks before meals and at bedtime and sliding scale during hospitalization. Review Of Systems: Constitutional: No fever, no chills, no night sweats. No weight change. No weakness, fatigue or lethargy. No daytime sleepiness. EENT: No headache. No blurred vision or double vision, no loss of vision. No loss of Hearing, no ringing in the ears, no dizziness. No nasal drainage or congestion. No epistaxis. No sore throat. Lungs: No shortness of breath, cough, no sputum production. No wheezing. Cardiovascular: No chest pain, no lower extremity edema. No palpitations. No paroxysmal nocturnal dyspnea. No orthopnea. No lightheadedness or dizziness. No syncopal episodes. Abdominal: No abdominal pain. No nausea, vomiting. No diarrhea. No constipation. No bloody or tarry stools.. No loss of appetite. Genitourinary: No dysuria, increased frequency, urgency. No urinary retention. Musculoskeletal: No myalgias. No muscle weakness, no gait dysfunction, no frequent falls. No back pain. No neck pain. Reports left knee discomfort Integumentary: No wounds, no lesions. No rash or pruritus. No unusual bruising. No change in hair or nails. Neurologic: No aphasia. No facial droop. No change in mentation. No head injury. No headache. No paralysis. No paresthesia. Psychiatric: No depression. No anxiety. No mood swings. Endocrine: No abnormal blood sugars. No weight change. No excessive sweating or thirst. No cold intolerance. Active Medications Diphenhydramine HCl (Diphenhydramine 25 Mg Cap) 25 mg PO HS PRN PRN Reason: Insomnia Stop: 04/04/22 10:56 Last Admin: 03/05/22 21:40 Dose: 25 mg Hydromorphone HCl (Hydromorphone 0.5 Mg/0.5 Ml Syringe) 0.125 mg IVP Q3HR PRN PRN Reason: Pain Scale 1 to 3 Stop: 04/04/22 10:56 Hydromorphone HCl (Hydromorphone 0.5 Mg/0.5 Ml Syringe) 0.25 mg IVP Q3HR PRN PRN Reason: Pain Scale 4 to 6 Stop: 04/04/22 10:56 Hydromorphone HCl (Hydromorphone 0.5 Mg/0.5 Ml Syringe) 0.5 mg IVP Q3HR PRN PRN Reason: Pain Scale 7 to 10 Stop: 04/04/22 10:56 Last Admin: 03/06/22 04:20 Dose: 0.5 mg Insulin Aspart (Insulin Aspart (Novolog) 100 Unit/Ml Vial) 0 unit SQ ACHS [facility]; Protocol Last Admin: 03/06/22 03:22 Dose: Not Given Losartan Potassium (Losartan 25 Mg Tab) 25 mg PO DAILY [facility] Last Admin: 03/06/22 13:44 Dose: 25 mg Ondansetron HCl (Ondansetron 4 Mg/2 Ml Vial) 4 mg IVP Q6HR PRN PRN Reason: Nausea And Vomiting Stop: 04/04/22 10:56 Last Admin: 03/05/22 16:23 Dose: 4 mg Senna/Docusate Sodium (Sennosides-Docusate Sodium 1 Each Tab) 2 each PO HS PRN PRN Reason: Constipation Stop: 04/04/22 10:56 Temazepam (Temazepam 15 Mg Cap) 15 mg PO HS PRN PRN Reason: Insomnia Stop: 04/04/22 10:56 Tramadol HCl (Tramadol 50 Mg Tab) 50 mg PO QID DANIELLA Stop: 04/04/22 13:01 Last Admin: 03/06/22 12:55 Dose: 50 mg PHYSICAL EXAMINATION: GENERAL: The patient is alert and oriented x4, Well developed, well nourished. HEENT: Pupils are round and equally reacting to light. EOMI. no scleral icterus. No conjunctival pallor. Normocephalic, atraumatic. No pharyngeal erythema. No thyromegaly. CARDIOVASCULAR: S1 and S2 muffled PULMONARY: diminished breath sounds bilaterally otherwise clear to auscultation with no wheezing or rhonchi noted. ABDOMEN: soft. Nontender on exam. obese. non-distended, normoactive bowel sounds. No palpable organomegaly. MUSCULOSKELETAL: No joint swelling or deformity. EXTREMITIES: No cyanosis, clubbing, or pedal edema. Left knee surgical dressing is intact and an immobilizer noted NEUROLOGICAL: Gross neurological examination did not reveal any focal deficits. SKIN: No rashes. Assessment: Left knee pain status post left knee revision of the rupture of quadriceps tendon Previous recent history of left total knee arthroplasty in April 2021 Diabetes mellitus type 2, uncontrolled with hyperglycemia, reports to controlling with diet and not on any antidiabetic agents Hyponatremia, most likely secondary to hydrochlorothiazide and lisinopril use Hypokalemia Hypertension Hyperlipidemia GI prophylaxis DVT prophylaxis Full code Plan: Recommend to continue with current medications and management per orthopedic services. Medical management was consulted as patient follows with Dr. Maryann foley in the outpatient setting and reports she has been diet controlled diabetes and most recently reports she is unsure of what her hemoglobin A1c is but was noted to have an elevation and continued with more aggressive diet controlled diabetes management. Patient was having elevated sugars in the 2 to 300s range and have ordered hemoglobin A1c which is currently pending at this time. Patient was initiated on Accu-Cheks before meals and at bedtime along wi th sliding scale and will start the patient on low-dose metformin 500 mg twice daily and encourage the patient to follow-up with primary care provider and also provide the patient with a glucometer to test daily and keep a diary of readings for PCP follow-up. Orthopedics is discharging the patient today and will be following up in the outpatient setting. Patient was on hydrochlorothiazide/lisinopril and recommend holding at this time as patient is a bit hyponatremic most likely secondary to Dyazide use and had started low-dose losartan and recommend close monitoring of blood pressures and following up with primary care provider this week. Patient has been seen and evaluated by PT/OT therapy recommending home with home care and this is being arranged by case management. Medications have been sent to the pharmacy and this was discussed with the patient and recommended follow-up labs of BMP in 2-3 days. We will continue to follow with orthopedics during hospitalization. Thank you for this consultation. The impression and plan of care has been dictated by Sheela Davenport, nurse practitioner as directed. Dr. Fransico MD I have performed a history and examination and MDM of this patient, discussed the same with the dictator, and agree with the dictator's assessment and plan as written ,documented as a scribe. Based on total visit time, I have performed more than 50% of the visit. Any additional findings or plans will be noted. Past Medical History Past Medical History: Cancer, Diabetes Mellitus, Hypertension, Musculoskeletal Disorder, Osteoarthritis (OA) Additional Past Medical History / Comment(s): Rt breast ca- 2016, had surgery & 33 radiation tx., hx of kidney stones, gout, diveticulitis, neck pain., PT STATES NO BP, NO IV'S OR BLOOD DRAWS RIGHT ARM, Diet controlled diabetic. History of Any Multi-Drug Resistant Organisms: None Reported Past Surgical History: Bladder Surgery, Breast Surgery, Cholecystectomy, Heart Catheterization, Hysterectomy, Joint Replacement, Orthopedic Surgery Additional Past Surgical History / Comment(s): rt breast lumpectomy With lymph nodes, bladder suspension, R knee replacement, jessica carpal tunnel,. trigger finger, cataracts, (states heart cath done years ago at [facility]) L knee replacement last April. Back surgery, Catatract surgery. Past Anesthesia/Blood Transfusion Reactions: Motion Sickness, Postoperative Nausea & Vomiting (PONV) Additional Past Anesthesia/Blood Transfusion Reaction / Comm: anxiety. Smoking Status: Never smoker - Past Family History Brother(s) Family Medical History: Cancer Medications and Allergies Home Medications Medication Instructions Recorded Confirmed Type Allopurinol [Zyloprim] 300 mg PO DAILY 09/18/18 03/05/22 History Anastrozole [Arimidex] 1 mg PO DAILY@1800 09/18/18 03/05/22 History Calcium Carbonate [Calcium] 600 mg PO BID 09/18/18 03/05/22 History Meloxicam [Mobic] 15 mg PO DAILY 09/18/18 03/01/22 History Multivitamins, Thera [Multivitamin 1 tab PO DAILY 09/18/18 03/01/22 History (formulary)] Propranolol [Inderal] 20 mg PO BID 09/18/18 03/05/22 History Cholecalciferol (Vitamin D3) 5,000 unit PO DAILY 06/09/19 03/01/22 History [Vitamin D3] Atorvastatin Calcium [Lipitor] 20 mg PO HS 03/01/22 03/05/22 History Aspirin 325 mg PO BID #60 tab 03/05/22 Rx Celecoxib [CeleBREX] 200 mg PO DAILY #30 capsule 03/05/22 Rx Ondansetron Odt [Zofran Odt] 4 mg PO Q8HR PRN #14 tab 03/05/22 Rx Sennosides-Docusate Sodium 1 tab PO BID #60 tablet 03/05/22 Rx [Senokot-S] traMADol HCL [Ultram] 50 mg PO Q6HR PRN #28 tab 03/05/22 Rx Losartan [Cozaar] 25 mg PO DAILY 30 Days #30 tab 03/06/22 Rx metFORMIN HCL [Glucophage] 500 mg PO BID #60 tab 03/06/22 Rx Allergies Allergy/AdvReac Type Severity Reaction Status Date / Time hydrocodone [From Lortab] Allergy Itching Verified 03/05/22 09:36 Iodinated Contrast Media Allergy Unknown Verified 03/05/22 09:36 [Iodinated Contrast- Oral and IV Dye] Influenza Virus Vaccines AdvReac Unknown states she Verified 03/05/22 09:36 did not feel well, felt like she had flu Physical Exam Vitals: Vital Signs Temp Pulse Resp BP Pulse Ox 03/06/22 05:22 98 F 79 16 126/72 97 03/05/22 20:00 78 16 03/05/22 19:54 98.2 F 78 16 128/73 97 03/05/22 16:53 97.4 F L 83 18 160/88 95 03/05/22 14:32 60 16 135/76 96 03/05/22 14:00 81 18 143/67 96 03/05/22 13:45 64 16 141/97 97 03/05/22 13:30 61 12 128/65 98 03/05/22 13:15 62 12 132/68 98 03/05/22 13:00 60 12 143/65 98 03/05/22 12:45 61 12 129/75 98 03/05/22 12:30 66 12 128/73 98 03/05/22 12:11 96.8 F L 79 12 142/73 94 L 03/05/22 10:30 78 16 139/77 100 03/05/22 09:41 97.4 F L 82 16 154/94 96 Intake and Output 03/05/22 03/06/22 03/06/22 22:59 06:59 14:59 Intake Total 200 Balance 200 Intake: Intake, IV Titration 200 Amount Lactated Ringers 1,000 ml 200 @ 100 mls/hr IV .Q10H [facility] Rx#:[id number] Other: Voiding Method Bedside Commode # Voids 2 2 Results CBC & Chem 7: 03/06/22 11:46 Labs: Abnormal Lab Results - Last 24 Hours (Table) 03/05/22 03/05/22 03/05/22 Range/Units 09:54 13:23 17:17 POC Glucose (mg/dL) 281 H 263 H 254 H (75-99) mg/dL 03/05/22 03/06/22 Range/Units 20:08 07:16 POC Glucose (mg/dL) 264 H 235 H (75-99) mg/dL Assessment and Plan Time with Patient: Greater than 30
== END 2022-03-06 17:24 | disposition home health service (06) ==
LOC: OR 09:11 → 5NMEDONC 12:11 → OR 03-06 07:25 → 5NMEDONC 03-06 07:51
PROVIDERS: ADMIT Orthopaedic Surgery; ATTEND Orthopaedic Surgery
DX: S76.112A Strain of left quadriceps muscle, fascia and tendon, initial encounter (principal); Z96.652 Presence of left artificial knee joint; E78.5 Hyperlipidemia, unspecified; I10 Essential (primary) hypertension; E11.65 Type 2 diabetes mellitus with hyperglycemia; M10.9 Gout, unspecified; Z85.3 Personal history of malignant neoplasm of breast; E78.00 Pure hypercholesterolemia, unspecified; Z97.3 Presence of spectacles and contact lenses; Z98.890 Other specified postprocedural states; Z90.710 Acquired absence of both cervix and uterus; E87.1 Hypo-osmolality and hyponatremia; E87.6 Hypokalemia; Z79.811 Long term (current) use of aromatase inhibitors; Z83.3 Family history of diabetes mellitus; Z79.82 Long term (current) use of aspirin; Z87.442 Personal history of urinary calculi; Z92.3 Personal history of irradiation; Z79.1 Long term (current) use of non-steroidal anti-inflammatories (NSAID); Z79.52 Long term (current) use of systemic steroids; Z79.899 Other long term (current) drug therapy; Z91.041 Radiographic dye allergy status; Z88.5 Allergy status to narcotic agent; Z91.048 Other nonmedicinal substance allergy status
CPT/HCPCS: 97116; 97162; 64447; 76942; 80048; 83036; 27385; G0378; J2250; J1100; J0690 ×3; J2405; J3010; J1170 ×2

== ENCOUNTER → 2022-06-15 | Outpatient (CLI) | payer MEDICARE ==
[2022-06-15 10:57] LABS: INR 0.9 (<1.2); Prothrombin Time 10.2 sec (9.0-12.0)
[2022-06-15 10:58] LABS: Partial Thromboplastin Time 23.5 sec (22.0-30.0)
[2022-06-15 14:34] LABS: HCT 44.9 % (37.2-46.3); HGB 14.3 g/dL (12.0-15.0); MCH 30.2 pg (27.0-32.0); MCHC 31.8 g/dL (32.0-37.0); MCV 94.7 fL (80.0-97.0); Mean Platelet Volume 11.2 fL (9.5-12.2); NRBC Per 100 WBC 0 /100 WBCS (0.0-0.0); Platelet Count 248 X 10*3/uL (140-440); RBC 4.74 X 10*6/uL (4.10-5.20); RDW 13.7 % (11.5-14.5); WBC 3.92 X 10*3/uL (4.50-10.00)
[2022-06-15 15:16] LABS: ALT 20 U/L (8-44); AST 24 U/L (13-35); African American GFR (CKD) 77.1 (60.0-200.0); Albumin 4.5 g/dL (3.8-4.9); Albumin/Globulin Ratio 2.14 (1.60-3.17); Alkaline Phosphatase 98 U/L (41-126); BUN/Creat Ratio 25.12 Ratio (12.00-20.00); Blood Urea Nitrogen 21.6 mg/dL (9.0-27.0); Calcium 10.4 mg/dL (8.7-10.3); Carbon Dioxide 26.6 mmol/L (20.0-27.5); Chloride 102 mmol/L (96-109); Chol/HDL Ratio 2.63 Ratio; Globulin 2.1 g/dL (1.6-3.3); Glucose 145 mg/dL (70-110); LDL Cholesterol,Calculated 78.6 mg/dL (0.0-131.0); Non-African American GFR(CKD) 66.6 (60.0-200.0); Potassium 4.4 mmol/L (3.5-5.5); Sodium 140 mmol/L (135-145); Total Protein 6.7 g/dL (6.2-8.2); Uric Acid 3.3 mg/dL (2.9-7.7)
[2022-06-15 23:16] LABS: Appearance,Urine Clear (Clear); Bilirubin,Urine Negative (Negative); Blood,Urine Negative (Negative); Color,Urine Yellow (Yellow); Ketones,Urine Trace mg/dL (Negative); Nitrite,Urine Negative (Negative); PH, Urine 5.5 (5.0-8.0); Specific Gravity,Urine 1.035 (1.001-1.030); Urobilinogen,Urine 0.2 (0.2,1.0)
[2022-06-15 23:40] LABS: Bacteria,Urine Trace /HPF (None Seen)
[2022-06-16 01:30] LABS: Urine Creatinine 82.7 mg/dL (28.0-217.0)
== END | disposition home or self-care (01) ==
LOC: LABPAT 09:45
PROVIDERS: ATTEND Orthopaedic Surgery
DX: Z01.818 Encounter for other preprocedural examination (principal); E11.65 Type 2 diabetes mellitus with hyperglycemia; E78.5 Hyperlipidemia, unspecified; M10.9 Gout, unspecified
CPT/HCPCS: 80053; 80061; 81001; 82043; 82570; 83036; 84550; 85027; 85610; 85730; 87070; 93005

== ENCOUNTER 2022-06-26 11:52 | Observation (INO) | payer MEDICARE ==
[~2022-06-26 11:52] MED LIST changes: +ACETAMINOPHEN TAB 500 MG TAB PO PRN; +DEXAMETHASONE SOD PHOSPHATE 4 MG/ML 1 ML VIAL IV ONE; +GABAPENTIN 300 MG CAP PO PRN; +HYDROmorphone 0.5 MG/0.5 ML SYRINGE IVP PRN; +LIDOCAINE 1% (10MG/ML) FOR IV START INTRADERMA PRN; +MAGNESIUM HYDROXIDE 2,400 MG/10 ML CUP PO PRN; +MELOXICAM 7.5 MG TAB PO PRN; +NALOXONE 0.4 MG/ML 1 ML VIAL IV PRN; +ONDANSETRON 4 MG/2 ML VIAL IVP ONE; +ONDANSETRON 4 MG/2 ML VIAL IVP PRN; -Pre Op ABX Message 1 EACH MISC MISCELLANE ONE; +TRANEXAMIC ACID IN NACL,ISO-OS 1,000 MG in SALINE 1 100ML.BAG IVPB PRN; +traMADol 50 MG TAB PO PRN
[2022-06-26] MEDS: LACTATED RINGERS 1,000 ML IV SCH (12:19)
[2022-06-26 12:42] LABS: Glucose,Whole Blood 180 mg/dL (70-110)
[2022-06-26] MEDS ORDERED: fentaNYL (PF) 50 MCG/ML 2 ML AMP ONE (13:00)
[2022-06-26] MEDS ORDERED: MIDAZOLAM 2 MG/2 ML VIAL ONE (13:00)
[2022-06-26] MEDS ORDERED: LIDOCAINE 2% INJ 20 MG/ML (2 ML VIAL) ONE (13:00)
[2022-06-26] MEDS ORDERED: TRANEXAMIC ACID IN NACL,ISO-OS 1,000 MG/100 ML BAG ONE (13:00)
[2022-06-26] MEDS ORDERED: PROPOFOL 10 MG/ML 20 ML VIAL IV ONE (13:00)
[2022-06-26] MEDS ORDERED: ROPIVACAINE 5 MG/ML 30 ML VIAL MISCELLANE ONE ×2 (13:35→14:06)
[2022-06-26] MEDS ORDERED: ceFAZolin 1,000 MG in SODIUM CHLORIDE 0.9% 1,000 ML IRRIGATION ONE (13:36)
--- NOTE | 2022-06-26 14:15 | P.OP ---
Date of Procedure: 06/26/22 Preoperative Diagnosis: Severe osteoarthritis right hip Postoperative Diagnosis: Severe osteoarthritis right hip Procedure(s) Performed: Right total hip arthroplasty with a direct anterior approach Implants: [employer] Polarstem standard size 3 collar [employer] R3, 3 hole hemispherical acetabular shell, 48 mm [employer] Reflection 6.5 mm cancellus screw, 20 mm, 25 mm [employer] R3, XLPE 20 acetabular liner [employer] Oxinium femoral head 32 m, +0 All components were press-fit. The articulation is Oxinium on polyethylene. Anesthesia: spinal Surgeon: Jose Ramirez Keg Raiser #1: Marianne Chavez Estimated Blood Loss (ml): 250 Pathology: other (Femoral head) Condition: stable Disposition: PACU Indications for Procedure: After failure of conservative treatment we discussed the surgical and nonsurgical treatment options at length. Patient wishes to proceed with a total hip arthroplasty with a direct anterior approach. Complications specific to this procedure were discussed at length, including but not limited to infection, leg length discrepancy, dislocation, nerve injury, and fracture. Covid-19 was also discussed at length with the patient, and they are aware of the current velma icies and procedures. The patient was given the option of delaying surgery, but they elect to proceed knowing these risks. Patient is aware of all these complications and informed consent was obtained Operative Findings: The operative findings are consistent with severe osteoarthritis of the right hip Description of Procedure: Patient was seen and evaluated in the preoperative area and the consent was reviewed. The operative site was marked with a skin marker. The patient was then brought to the operating room and given preoperative antibiotics intravenously. 1 g of Tranexamic acid was also given intravenously. A spinal anesthetic was administered by the anesthesia department. The patient was then placed on the [place] table with the bony prominences well-padded. The hip area was then prepped with a ChloraPrep solution and draped in the usual sterile fashion. A universal timeout was then performed, which confirmed the patient's name, surgical site, ALLERGIES, and procedure being performed on the consent. Next the incision site was located at 1 cm distal and 2 cm lateral to the anterior superior iliac spine. The skin and subcutaneous tissues were sharply incised. Incision was carefully dissected down to the fascia overlying the tensor fascia feliciano muscle. This fascia was then incised in line with the incision. Care was taken to stay laterally in order to avoid injuring the lateral femoral cutaneous nerve. Next, using blunt finger dissection, the tensor fascia feliciano muscle was dissected off its investing fascia. The muscle was then carefully retracted laterally with a cobra retractor over the lateral neck of the femur. Next, the circumflex vessels were identified and cauterized using the AquaMantis device. The anterior hip capsule was then exposed. The capsule was then opened and an inverted T fashion. Cobra retractors were then placed intracapsularly. The retractors were maintained intracapsular throughout the procedure. The proximal femur was then visualized. Fluoroscopic x-rays were then taken in order to evaluate the preoperative leg lengths. A small amount of traction was placed on the leg. The femoral neck was then osteotomized at the appropriate level above the lesser trochanter. A small wedge of bone was then removed from the remaining femoral head. Next, using a corkscrew the femoral head was removed from the acetabulum. On gross visual inspection, the femoral head had complete loss of articular cartilage and multiple periarticular osteophytes. The femoral head was then measured. Attention was then turned to the acetabulum. The acetabulum was exposed and any remaining labrum was excised. Sequential reaming of the acetabulum was performed using fluoroscopic guidance until there was a good bed of bleeding cancellus bone. When the appropriate size was reached, a trial was then placed. The position and fit of the trial was checked with fluoroscopy. The trial was then removed. Then, using fluoroscopic guidance, the final implant was impacted at 20 of anteversion and 40 of abduction, and fully seated in the acetabulum. 2 screws were then placed in the acetabulum. Again fluoroscopy was used to check position of the screws. Next, the liner was then impacted, with a 20 elevated liner located in the anterior superior quadrant. Component locking was confirmed. Attention was then directed to the femur. With the aid of the [place] table, the femur was externally rotated to approximately 130, extended, and adducted under the opposite leg. A side hook was then placed under the proximal femur, and the side hook elevator was used to elevate the proximal femur while releasing the capsule. Retractors were then placed. A capsular release was performed, as well as a release of the conjoined tendon, which afforded excellent visualization of the proximal femur. Next, a box osteotome was used to lateralize the proximal femur. A material handler loader was then used to locate the femoral canal. Sequential broaching was then performed with appropriate size which afforded excellent fixation in the proximal femur. A trial was then placed with appropriate head and neck, and the hip was gently reduced with the aid of the [place] table. Fluoroscopy was then used to check position of the components, as well as to ensure equal leg lengths. The hip was then gently dislocated and the trials were then removed. Final implants were then impacted and the hip was again reduced. Final fluoroscopic x-rays confirmed that the components were in anatomic position, as well as equal leg lengths. The hip was also taken through range of motion, and found to be stable. The hip was then copiously irrigated with antibiotic solution with pulsatile lavage. The hip was then irrigated with Irrisept solution. The soft tissues were then injected with a ropivacaine solution. A second dose of 1 g of Tranexamic acid was also given intravenously. The fascia was then closed with 2-0 strata fix suture. The subcutaneous tissue was closed with 3-0 Vicryl. The subcuticular tissue was closed with 3-0 strata fix suture. The skin was then closed with Exofin skin glue. After the glue and dried, and Optifoam silver impregnated dressing was applied. The patient was then transferred to the recovery room in stable condition. The medical practice assistant SHAHID Whatley was required due to the complexity of surgery, and the need for skilled surgical brace maker for positioning, draping, exposure, retraction, and closure of the wound.
[2022-06-26] MEDS ORDERED: LACTATED RINGERS 1,000 ML IV ONE (14:18)
--- NOTE | 2022-06-26 14:30 | FL ---
EXAMINATION TYPE: FL guidance operating room DATE OF EXAM: 06/26/2022 CLINICAL HISTORY: Right hip pain and osteoarthritis. TECHNIQUE: Fluoroscopy. COMPARISON: None. FINDINGS: Fluoroscopic guidance was provided during right hip replacement procedure performed by Dr. Ramirez. A total of 37 seconds of fluoroscopic time was utilized during the procedure and 3 spot i mages are acquired. IMPRESSION: As Above.
--- NOTE | 2022-06-26 15:28 | XR ---
Intraoperative/procedural fluoroscopic services were provided for right total hip arthroplasty. Hardw are appears intact with appropriate position. Total fluoroscopy time is 37 seconds with a total of 2 submitted images to PACS. Please see the operative note for further details.
[2022-06-26] MEDS ORDERED: DEXTROSE 50% SYRINGE 50 ML IVP PRN ×2 (17:07)
[2022-06-26 17:08] LABS: Glucose,Whole Blood 175 mg/dL (70-110)
[2022-06-26] MEDS: INSULIN ASPART (NovoLOG) 100 UNIT/ML VIAL SQ SCH ×2 (17:53→21:11)
[2022-06-26] MEDS: SODIUM CHLORIDE 0.9% 1,000 ML IV SCH (17:57)
[2022-06-26 20:45] LABS: Glucose,Whole Blood 272 mg/dL (70-110)
[2022-06-26] MEDS: ATORVASTATIN 20 MG TAB PO SCH (21:10)
[2022-06-26] MEDS: SENNOSIDES-DOCUSATE SODIUM 1 EACH TAB PO SCH (21:10)
[2022-06-26] MEDS: CALCIUM CARBONATE 500 MG CHEWABLE PO SCH (21:11)
[2022-06-26] MEDS: ASPIRIN 325 MG TAB PO SCH (21:11)
[2022-06-26] MEDS: PROPRANOLOL 20 MG TAB PO SCH (21:15)
[2022-06-26] MEDS: HYDROmorphone 0.5 MG/0.5 ML SYRINGE IVP PRN (21:17)
[2022-06-27] MEDS: HYDROmorphone 0.5 MG/0.5 ML SYRINGE IVP PRN ×3 (00:09→21:39)
[2022-06-27] MEDS: SODIUM CHLORIDE 0.9% 1,000 ML IV SCH ×2 (04:29→16:49)
--- NOTE | 2022-06-27 04:54 | CONS ---
CONSULTATION REASON FOR CONSULTATION: Advice regarding diabetes mellitus, hypertension, hyperlipidemia, requested by Orthopedic Surgery. HISTORY OF PRESENT ILLNESS: This is a 72-year-old woman with a past medical history of hypertension, hyperlipidemia, diabetes, being followed by Dr. Nichelle Luciano in the outpatient setting, underwent right total knee joint arthroplasty, severe DJD by Dr. Ramirez. The patient tolerated the procedure well. There is no history of any fever, or rigors. No history of headache, loss of consciousness, or seizures. PAST MEDICAL HISTORY: Reviewed, include diabetes mellitus, hypertension, and hyperlipidemia. HOME MEDICATIONS: Also reviewed include Jardiance, dose and rest of medication noted. ALLERGIES: Reviewed include Lortab. FAMILY HISTORY: History of Hodgkin lymphoma. SOCIAL HISTORY: Previous history of smoking. REVIEW OF SYSTEMS: A 14-point review of systems is negative except as mentioned earlier. PHYSICAL EXAMINATION: VITAL SIGNS: Pulse 58, blood pressure 112/59, respirations 16. HEENT: Conjunctivae normal. NECK: No JVD. CARDIOVASCULAR: S1, S2 muffled. RESPIRATIONS: Breath sounds diminished at the bases. No rhonchi. No crackles. ABDOMEN: Soft, nontender. LEGS: Status post surgery. NERVOUS SYSTEM: No focal deficits. LABS: Accu-Cheks 175 to 272. ASSESSMENT: 1. Status post right total knee arthroplasty. 2. Diabetes mellitus, type 2. 3. Hypertension. 4. Hyperlipidemia. 5. Multiple medical issues. RECOMMENDATIONS AND DISCUSSION: This is a 72-year-old woman who presented with multiple complex medical issues. I would recommend to continue the rest of the medications, home medications. Monitor blood sugars closely, otherwise I would also recommend DVT prophylaxis, incentive spirometry. We will follow the patient closely with you. Thank you for letting us participate in the care of this patient. MMODL / IJN: [id number] /
[2022-06-27 06:57] LABS: Glucose,Whole Blood 144 mg/dL (70-110)
[2022-06-27] MEDS: INSULIN ASPART (NovoLOG) 100 UNIT/ML VIAL SQ SCH ×4 (07:04→21:29)
[2022-06-27] MEDS: CALCIUM CARBONATE 500 MG CHEWABLE PO SCH ×2 (07:11→21:29)
[2022-06-27] MEDS: hydroCHLOROthiazide 25 MG TAB PO SCH (07:11)
[2022-06-27] MEDS: DAPAGLIFLOZIN PROPANEDIOL 5 MG TABLET PO SCH (07:12)
[2022-06-27] MEDS: PROPRANOLOL 20 MG TAB PO SCH ×2 (07:12→21:29)
[2022-06-27] MEDS: MULTIVITAMINS, THERA 1 EACH TAB PO SCH (07:12)
[2022-06-27] MEDS: allopurinoL 300 MG TAB PO SCH (07:12)
[2022-06-27] MEDS: ASPIRIN 325 MG TAB PO SCH ×2 (07:12→21:29)
[2022-06-27] MEDS: HYDROcodone/APAP 7.5-325MG 1 EACH TAB PO PRN ×3 (07:42→18:18)
[2022-06-27] MEDS: hydrOXYzine pamoate 25 MG CAP PO PRN ×3 (07:43→18:17)
[2022-06-27 10:45] LABS: Basophils # (A) 0.03 X 10*3/uL (0.00-0.10); Basophils % (A) 0.3 %; Eosinophils # (A) 0 X 10*3/uL (0.04-0.35); Eosinophils % (A) 0 %; HCT 40.3 % (37.2-46.3); HGB 12.9 g/dL (12.0-15.0); Immature Grans, Automated 0.5 %; Lymphocytes # (A) 1.67 X 10*3/uL (0.90-5.00); Lymphocytes % (A) 17.9 %; MCH 30.1 pg (27.0-32.0); MCV 94.2 fL (80.0-97.0); Mean Platelet Volume 12.1 fL (9.5-12.2); Monocytes % (A) 10.7 %; NRBC Per 100 WBC 0 /100 WBCS (0.0-0.0); Neutrophils # (A) 6.58 X 10*3/uL (1.80-7.70); Neutrophils % (A) 70.6 %; Platelet Count 242 X 10*3/uL (140-440); RBC 4.28 X 10*6/uL (4.10-5.20); RDW 13.7 % (11.5-14.5); WBC 9.33 X 10*3/uL (4.50-10.00)
--- NOTE | 2022-06-27 10:49 | P.PN ---
Subjective Progress Note Date: 06/27/22 Principal diagnosis: Primary asked arthritis right hip. Status post total right hip arthroplasty direct anterior approach. This is a 72-year-old female who is postoperative day #1 status post total right hip arthroplasty with direct anterior approach. She is having some pain control issues this morning. She also had some lightheadedness and nausea when she got up with therapy today. Currently she states that her nausea is improved. She is afebrile. Vital signs are stable. Objective - Vital Signs Vital signs: Vital Signs Temp 96.9 F L 06/27/22 07:35 Pulse 72 06/27/22 07:35 Resp 16 06/27/22 07:35 BP 126/75 06/27/22 07:35 Pulse Ox 97 06/27/22 07:35 FiO2 Intake & Output 06/26/22 06/27/22 06/27/22 18:59 06:59 18:59 Intake Total 1351 Output Total 250 Balance 1101 Weight 83.6 kg Intake: IV 1351 Output: Estimated Blood Loss 250 Other: # Voids 0 4 - Exam This is a pleasant 72-year-old female in no acute distress. She is alert and oriented 3. Exam of the right hip reveals that her optifoam dressing has been partially removed. I removed the dressing completely and on inspection of the incision there is no erythema. There is mild ecchymosis and mild soft tissue swelling to the surrounding area. There is no erythema. There is no active drainage. The skin glue is intact. She has full foot and ankle motion without difficulty or pain. Neurovascular status to the right lower extremity is intact. - Labs Labs: Abnormal Lab Results - Last 24 Hours (Table) 06/26/22 06/26/22 06/26/22 Range/Units 12:38 17:07 18:06 POC Glucose (mg/dL) 180 H 175 H (70-110) mg/dL Hemoglobin A1c 7.8 H (0.0-6.0) % 06/26/22 06/27/22 Range/Units 20:19 06:55 POC Glucose (mg/dL) 272 H 144 H (70-110) mg/dL Hemoglobin A1c (0.0-6.0) % Assessment and Plan (1) Osteoarthritis of right hip Current Visit: Yes Status: Acute Code(s): M16.11 - UNILATERAL PRIMARY OSTEOARTHRITIS, RIGHT HIP SNOMED Code(s): 185261656020986 (2) S/P total right hip arthroplasty Current Visit: Yes Status: Acute Code(s): Z96.641 - PRESENCE OF RIGHT ARTIFICIAL HIP JOINT SNOMED Code(s): 686514053120 Plan: The clinical findings are discussed with the patient. A new Optifoam dressing is placed. We will keep the patient 1 more night for pain management and another day of physical therapy. The patient understands and agrees with the plan.
[2022-06-27 12:45] LABS: Glucose,Whole Blood 211 mg/dL (70-110)
[2022-06-27] MEDS: LACTATED RINGERS 1,000 ML IV SCH (14:38)
--- NOTE | 2022-06-27 16:11 | P.PN ---
Subjective Progress Note Date: 06/27/22 Consultation reason: Medical advice regarding diabetes mellitus, hypertension, hyperlipidemia status post orthopedic right total hip arthroplasty This is a 72-year-old female who was recently admitted under orthopedic services for right total hip arthroplasty and is being closely monitored. Patient was able to work with physical therapy recommending poor pain management and orthopedics have adjusted medications and recommend using Ultram in addition to Harvard. Patient does have IV pain medications as needed although encouraged limiting the use of this. Patient was given stool softeners and reports she is passing gas although no bowel movement as of yet. Patient with incentive spirometer at the bedside recommend using at least 10 times every hour while awake. Vital signs are stable. Patient is afebrile. Blood sugars currently 144 and hemoglobin A1c is 7.8. Encouraged increase activity as tolerated and recommending pain management prior to getting up and working with physical therapy. Review of systems: Constitutional: No reports of fatigue, fever, or chills Cardiovascular: No reports of chest pain or palpitations Respiratory: No reports of shortness of breath or cough GI: No reports of nausea, no reports of of vomiting, reports passing gas with no bowel movement : No reports of dysuria or retention Neurovascular: reports of generalized weakness, reports right knee pain All medications have been reviewed PHYSICAL EXAMINATION: GENERAL: The patient is alert and oriented x4, Well developed, well nourished. HEENT: Pupils are round and equally reacting to light. EOMI. no scleral icterus. No conjunctival pallor. Normocephalic, atraumatic. No pharyngeal erythema. No thyromegaly. CARDIOVASCULAR: S1 and S2 muffled PULMONARY: diminished breath sounds bilaterally with no wheezing or rhonchi noted. ABDOMEN: soft. Nontender on exam. obese. non-distended, normoactive bowel sounds. No palpable organomegaly. MUSCULOSKELETAL: No joint swelling or deformity. EXTREMITIES: No cyanosis, clubbing, or pedal edema. Right hip dressing is dry and intact NEUROLOGICAL: Gross neurological examination did not reveal any focal deficits. Diffuse weakness SKIN: No rashes. Assessment: Status post right total hip arthroplasty Diabetes mellitus, type II Hypertension Hyperlipidemia GI prophylaxis DVT prophylaxis Full code Plan: Recommend to continue with current medications and management per orthopedic services. Patient has been seen and evaluated by PT/OT therapy and reports to poor pain control with orthopedics following recommending close monitoring overnight for pain management. Adjustments have been made to medications and patient is currently maintained on Harvard and recommend using Ultram as well. Patient with incentive spirometer at the bedside and encourage the patient to continue using at least 10 times every hour while awake. Recommend continue monitoring Accu-Cheks before meals and at bedtime and continue sliding scale as needed. Appropriate home medications have been reviewed and resumed and recommend close outpatient follow-up with primary care provider on discharge. We will continue to follow with orthopedics during hospitalization. Thank you for this consultation. The impression and plan of care has been dictated by Sheela Davenport, nurse practitioner as directed. Dr. Jorge MD I have performed a history and examination and MDM of this patient, discussed the same with the dictator, and agree with the dictator's assessment and plan as written ,documented as a scribe. Based on total visit time, I have performed more than 50% of the visit. Any additional findings or plans will be noted. Objective - Vital Signs Vital signs: Vital Signs Temp 97.0 F L 06/27/22 14:00 Pulse 65 06/27/22 14:00 Resp 17 06/27/22 14:00 BP 130/63 06/27/22 14:00 Pulse Ox 97 06/27/22 14:00 FiO2 Intake & Output 06/26/22 06/27/22 06/27/22 18:59 06:59 18:59 Intake Total 1351 Output Total 250 Balance 1101 Weight 83.6 kg Intake: IV 1351 Output: Estimated Blood Loss 250 Other: # Voids 0 4 - Labs CBC & Chem 7: 06/27/22 07:32 Labs: Abnormal Lab Results - Last 24 Hours (Table) 06/26/22 06/26/22 06/26/22 Range/Units 17:07 18:06 20:19 Immature Gran # (0.00-0.04) X 10*3/uL Eosinophils # (0.04-0.35) X 10*3/uL POC Glucose (mg/dL) 175 H 272 H (70-110) mg/dL Hemoglobin A1c 7.8 H (0.0-6.0) % 06/27/22 06/27/22 06/27/22 Range/Units 06:55 07:32 12:44 Immature Gran # 0.05 H (0.00-0.04) X 10*3/uL Eosinophils # 0 L (0.04-0.35) X 10*3/uL POC Glucose (mg/dL) 144 H 211 H (70-110) mg/dL Hemoglobin A1c (0.0-6.0) %
[2022-06-27 16:34] LABS: Glucose,Whole Blood 159 mg/dL (70-110)
[2022-06-27 20:45] LABS: Glucose,Whole Blood 217 mg/dL (70-110)
[2022-06-27] MEDS: ATORVASTATIN 20 MG TAB PO SCH (21:29)
[2022-06-27] MEDS: SENNOSIDES-DOCUSATE SODIUM 1 EACH TAB PO SCH (21:29)
[2022-06-28] MEDS: HYDROcodone/APAP 7.5-325MG 1 EACH TAB PO PRN ×2 (02:45→08:06)
[2022-06-28] MEDS: hydrOXYzine pamoate 25 MG CAP PO PRN ×2 (02:46→08:06)
[2022-06-28 07:18] LABS: Glucose,Whole Blood 134 mg/dL (70-110)
[2022-06-28 07:31] VITALS: BP 118/71; PULSE 99; RESP 16; TEMP 98.2
[2022-06-28] MEDS: INSULIN ASPART (NovoLOG) 100 UNIT/ML VIAL SQ SCH ×2 (07:59→11:56)
[2022-06-28] MEDS: MULTIVITAMINS, THERA 1 EACH TAB PO SCH (08:05)
[2022-06-28] MEDS: hydroCHLOROthiazide 25 MG TAB PO SCH (08:05)
[2022-06-28] MEDS: CALCIUM CARBONATE 500 MG CHEWABLE PO SCH (08:05)
[2022-06-28] MEDS: allopurinoL 300 MG TAB PO SCH (08:05)
[2022-06-28] MEDS: ASPIRIN 325 MG TAB PO SCH (08:05)
[2022-06-28] MEDS: DAPAGLIFLOZIN PROPANEDIOL 5 MG TABLET PO SCH (08:06)
[2022-06-28] MEDS: PROPRANOLOL 20 MG TAB PO SCH (08:06)
[2022-06-28 11:23] LABS: Glucose,Whole Blood 198 mg/dL (70-110)
--- NOTE | 2022-06-28 12:19 | P.DS ---
Providers Date of admission: 06/27/22 07:51 Expected date of discharge: 06/28/22 Attending physician: Jose Ramirez Consults: 06/26/22 11:00 Consult Physician Routine Consulting Provider: Sanjana Patel Consult Reason/Comments: medical management Do you want consulting provider notified?: Yes Primary care physician: Maryann Segura - Discharge Diagnosis(es) (1) Osteoarthritis of right hip Current Visit: Yes Status: Acute (2) S/P total right hip arthroplasty Current Visit: Yes Status: Acute Hospital Course: This is a 72-year-old female with known history of degenerative arthritis of the right hip. The patient presented for evaluation as an outpatient. After discussion and consideration patient elects to proceed with total hip arthroplasty. The patient is seen preoperatively by Dr. Ramirez and medically cleared for surgery by their primary care physician. Patient is admitted to [facility] on 06/26/2022 for total hip arthroplasty. The procedure is performed without complication or sequelae. The patient is doing well postoperatively. Labs and vital signs are stable on day of discharge. On day of discharge patient's hip incision is healing well. There is minimal erythema. There is no drainage noted at this time. There is minimal soft tissue swelling to the hip and thigh. Patient has full foot and ankle motion without difficulty or pain. Calf is soft and nontender to palpation. Neurovascular status to the right lower extremity is intact. Patient is discharged home in good condition. Please see med rec for accurate list of home medications. Plan - Discharge Summary Discharge Rx Participant: Yes New Discharge Prescriptions: New HYDROcodone/APAP 7.5-325MG [[place] 7.5-325] 1 - 2 tab PO Q6H PRN #32 tab PRN Reason: Pain Aspirin 325 mg PO BID #60 tab Sennosides [Senokot] 2 tab PO DAILY PRN #60 tablet PRN Reason: Constipation Continue Multivitamins, Thera [Multivitamin (formulary)] 1 tab PO DAILY Anastrozole [Arimidex] 1 mg PO DAILY@1800 Propranolol [Inderal] 20 mg PO BID Calcium Carbonate [Calcium] 600 mg PO BID allopurinoL [Zyloprim] 300 mg PO DAILY Cholecalciferol (Vitamin D3) [Vitamin D3] 5,000 unit PO MO Atorvastatin Calcium [Lipitor] 20 mg PO HS hydroCHLOROthiazide 25 mg PO DAILY Empagliflozin [Jardiance] 10 mg PO DAILY Discontinued Meloxicam [Mobic] 15 mg PO DAILY Celecoxib [CeleBREX] 200 mg PO DAILY #30 capsule Discharge Medication List Anastrozole [Arimidex] 1 mg PO DAILY@1800 09/18/18 [History] Calcium Carbonate [Calcium] 600 mg PO BID 09/18/18 [History] Multivitamins, Thera [Multivitamin (formulary)] 1 tab PO DAILY 09/18/18 [History ] Propranolol [Inderal] 20 mg PO BID 09/18/18 [History] allopurinoL [Zyloprim] 300 mg PO DAILY 09/18/18 [History] Cholecalciferol (Vitamin D3) [Vitamin D3] 5,000 unit PO MO 06/09/19 [History] Atorvastatin Calcium [Lipitor] 20 mg PO HS 03/01/22 [History] Empagliflozin [Jardiance] 10 mg PO DAILY 06/25/22 [History] hydroCHLOROthiazide 25 mg PO DAILY 06/25/22 [History] Aspirin 325 mg PO BID #60 tab 06/26/22 [Rx] Sennosides [Senokot] 2 tab PO DAILY PRN #60 tablet 06/26/22 [Rx] HYDROcodone/APAP 7.5-325MG [[place] 7.5-325] 1 - 2 tab PO Q6H PRN #32 tab 06/28/22 [Rx] Follow up Appointment(s)/Referral(s): Nichelle Luciano PAC [Family Provider] - 1 Week Jose Ramirez DO [Doctor of Osteopathic Medicine] - 2 Weeks Activity/Diet/Wound Care/Special Instructions: Weightbearing as tolerated with walker. Leave dressing intact. Dressing may be removed by home care nurse or by patient in 7 days. Then change dressing twice daily until follow up. May shower with initial dressing intact and after removal. If dressing become saturated, please remove. Please take aspirin 325mg twice daily for 30 days to prevent blood clots. Recommend use of compression stockings daily until follow up to help prevent swelling and blood clots. May remove at night before sleeping. Please follow-up with [facility] in 2 weeks and call with any questions or concerns, . Attend outpatient physical therapy at [facility] as scheduled prior to surgery. Discharge Disposition: HOME WITH HOME HEALTH SERVICES
--- NOTE | 2022-06-28 15:28 | P.PN ---
Subjective Progress Note Date: 06/28/22 Consultation reason: Medical advice regarding diabetes mellitus, hypertension, hyperlipidemia status post orthopedic right total hip arthroplasty This is a 72-year-old female who was recently admitted under orthopedic services for right total hip arthroplasty and is being closely monitored. Patient was able to work with physical therapy recommending poor pain management and orthopedics have adjusted medications and recommend using Ultram in addition to Bond. Patient does have IV pain medications as needed although encouraged limiting the use of this. Patient was given stool softeners and reports she is passing gas although no bowel movement as of yet. Patient with incentive spirometer at the bedside recommend using at least 10 times every hour while awake. Vital signs are stable. Patient is afebrile. Blood sugars currently 144 and hemoglobin A1c is 7.8. Encouraged increase activity as tolerated and recommending pain management prior to getting up and working with physical therapy. 06/28/2022 Patient is seen and evaluated this morning and follow-up reporting her pain is much improved and has worked with physical therapy. Patient is reporting some burning sensation at the site although is most likely due to the small hematoma which is soft and palpable. Orthopedics has cleared the patient for discharge and will be discharged today. Patient with an incentive spirometer at the bedside and encourage the patient to take home and continue using at least 10 times every hour while awake. Patient denies chest pain or shortness of breath and is afebrile. Patient using ice and heat packs to the site with some relief. Recommend following up with primary care provider along with orthopedics at her scheduled appointment. Recommend continue monitoring blood sugars and keep a diary of blood sugar readings for primary care follow-up and to continue following consistent carb diet. Home medications have been resumed and patient will be discharged today. Patient is tolerating diet with no reports of nausea or vomiting noted and reports the passing gas. Review of systems: Constitutional: No reports of fatigue, fever, or chills Cardiovascular: No reports of chest pain or palpitations Respiratory: No reports of shortness of breath or cough GI: No reports of nausea, no reports of of vomiting, reports passing gas with no bowel movement : No reports of dysuria or retention Neurovascular: reports of generalized weakness, report some mild burning sensation at the site All medications have been reviewed PHYSICAL EXAMINATION: GENERAL: The patient is alert and oriented x4, Well developed, well nourished. HEENT: Pupils are round and equally reacting to light. EOMI. no scleral icterus. No conjunctival pallor. Normocephalic, atraumatic. No pharyngeal erythema. No thyromegaly. CARDIOVASCULAR: S1 and S2 muffled PULMONARY: diminished breath sounds bilaterally with no wheezing or rhonchi noted. ABDOMEN: soft. Nontender on exam. obese. non-distended, normoactive bowel sounds. No palpable organomegaly. MUSCULOSKELETAL: No joint swelling or deformity. EXTREMITIES: No cyanosis, clubbing, or pedal edema. Right hip dressing is dry and intact with a small hematoma that is palpable and soft noted NEUROLOGICAL: Gross neurological examination did not reveal any focal deficits. Diffuse weakness SKIN: No rashes. Assessment: Status post right total hip arthroplasty Diabetes mellitus, type II Hypertension Hyperlipidemia GI prophylaxis DVT prophylaxis Full code Plan: Recommend to continue with current medications and management per orthopedic services. Patient has been seen and evaluated by PT/OT therapy and reports patient has improved from yesterday and will be going home today with rehab being arranged in the outpatient setting. Pain management per orthopedic services and patient reports her pain is improved today. Encourage the patient to continue elevating the extremity while at rest and continue with ice and heat rotation to the site and monitoring the site closely as there is a noted small hematoma that is soft and palpable at this time. Recommend follow-up with orthopedics at her scheduled appointment along with primary care provider on discharge. Adjustments have been made to medications and patient is currently maintained on Bond and recommend using Ultram as well. Patient with incentive spirometer at the bedside and encourage the patient to continue using at least 10 times every hour while awake including at home . Recommend to continue monitoring blood sugars and keep a diary for primary care follow-up. Appropriate home medications have been reviewed and resumed and recommend close outpatient follow-up with primary care provider on discharge. We will continue to follow with orthopedics during hospitalization. Thank you for this consultation. patient being discharged today. The impression and plan of care has been dictated by Sheela Davenport, nurse practitioner as directed. Dr. Jorge MD I have performed a history and examination and MDM of this patient, discussed the same with the dictator, and agree with the dictator's assessment and plan as written ,documented as a scribe. Based on total visit time, I have performed more than 50% of the visit. Any additional findings or plans will be noted. Objective - Vital Signs Vital signs: Vital Signs Temp 98.2 F 06/28/22 07:30 Pulse 99 06/28/22 08:06 Resp 16 06/28/22 08:06 BP 118/71 06/28/22 07:30 Pulse Ox 97 06/28/22 07:30 FiO2 Intake & Output 06/27/22 06/28/22 06/28/22 18:59 06:59 18:59 Other: # Voids 3 4 - Labs CBC & Chem 7: 06/27/22 07:32 Labs: Abnormal Lab Results - Last 24 Hours (Table) 06/27/22 06/27/22 06/28/22 Range/Units 16:33 20:43 07:12 POC Glucose (mg/dL) 159 H 217 H 134 H (70-110) mg/dL 06/28/22 Range/Units 11:22 POC Glucose (mg/dL) 198 H (70-110) mg/dL
[2022-07-02] MEDS ORDERED: CHOLECALCIFEROL 125 MCG (5000 IU) TABLET PO SCH (09:00)
== END 2022-06-28 12:58 | disposition home health service (06) ==
LOC: OR 11:52 → 4SSUR 14:33 → OR 06-27 07:51
PROVIDERS: ADMIT Orthopaedic Surgery; ATTEND Orthopaedic Surgery
DX: M16.11 Unilateral primary osteoarthritis, right hip (principal); E11.9 Type 2 diabetes mellitus without complications; I10 Essential (primary) hypertension; E78.5 Hyperlipidemia, unspecified; Z85.3 Personal history of malignant neoplasm of breast; Z80.7 Family history of other malignant neoplasms of lymphoid, hematopoietic and related tissues; Z87.891 Personal history of nicotine dependence
CPT/HCPCS: 96361; 96374; 97116; 97161; 97530; 97535 ×2; 97165; 88305; 85025; 88311; 83036; 73501; 27130; G0378 ×2; C1776; J2250; J1100; J0690 ×3; J2405; J3010; J2795; J2704; J1170 ×2; J2001; 86850; 86900; 86901

== ENCOUNTER → 2023-07-15 | Outpatient (CLI) | payer MEDICARE ==
[2023-07-16 05:27] LABS: Appearance,BF Hazy; Color,BF Orange; Nucleated Cells, Body Fluid 189 /uL; RBC, Body Fluid 1622 /uL
== END | disposition home or self-care (01) ==
LOC: LABWHC1 12:45
PROVIDERS: ATTEND Orthopaedic Surgery
DX: M25.462 Effusion, left knee (principal); Z96.652 Presence of left artificial knee joint; M66.262 Spontaneous rupture of extensor tendons, left lower leg
CPT/HCPCS: 36415; 85379; 85652; 86140; 87070; 87075; 87205; 89050

== ENCOUNTER → 2024-03-10 | Outpatient (CLI) | payer MEDICARE ==
[2024-03-10 11:57] LABS: Ionized Calcium 5.3 mg/dL (4.5-5.3)
[2024-03-10 12:11] LABS: HCT 48.6 % (34.0-46.0); HGB 15.3 gm/dL (11.4-16.0); MCH 31.3 pg (25.0-35.0); MCHC 31.5 g/dL (31.0-37.0); MCV 99.2 fL (80.0-100.0); Mean Platelet Volume 9.2; Platelet Count 211 k/uL (150-450); RDW 13.5 % (11.5-15.5); WBC 4.7 k/uL (3.8-10.6)
[2024-03-10 12:15] LABS: African American GFR (CKD) 89 (>60 ml/min/1.73 sqM); Anion Gap 7 mmol/L; Blood Urea Nitrogen 22 mg/dL (7-17); Calcium 9.9 mg/dL (8.4-10.2); Carbon Dioxide 24 mmol/L (22-30); Chloride 107 mmol/L (98-107); Glucose 189 mg/dL (74-99); Non-African American GFR(CKD) 77 (>60 ml/min/1.73 sqM); Potassium 3.4 mmol/L (3.5-5.1); Sodium 138 mmol/L (137-145)
[2024-03-10 14:38] LABS: Protein, Total 6.6 g/dL (6.2-8.2)
[2024-03-10 14:43] LABS: Eosinophils # (M) 0.05 k/uL (0-0.7); Lymphocytes # (M) 1.27 k/uL (1.0-4.8); Monocytes # (M) 0.38 k/uL (0-1.0); Neutrophils # (M) 3.01 k/uL (1.3-7.7); Neutrophils % (M) 64 %; Nucleated Red Blood Cells 0 /100 WBC (0-0); Total Cells Counted 100
[2024-03-10 14:45] LABS: RBC Morphology Normal
[2024-03-11 22:28] LABS: Gamma Globulin 0.86 g/dL (0.70-1.50)
== END | disposition home or self-care (01) ==
LOC: LABWHC1 10:54
PROVIDERS: ATTEND Internal Medicine
DX: E83.52 Hypercalcemia (principal)
CPT/HCPCS: 36415; 80048; 82306; 82330; 83970; 84165; 85027

== ENCOUNTER → 2024-03-25 | Outpatient (CLI) | payer MEDICARE ==
[2024-03-25 15:41] LABS: BUN/Creat Ratio 28.67 Ratio (12.00-20.00); Blood Urea Nitrogen 25.8 mg/dL (9.0-27.0); Calcium 10.2 mg/dL (8.7-10.3); Carbon Dioxide 23.4 mmol/L (21.6-31.8); Chloride 104 mmol/L (96-109); Glucose 219 mg/dL (70-110); Magnesium 1.7 mg/dL (1.5-2.4); Potassium 4.4 mmol/L (3.5-5.5); Sodium 140 mmol/L (135-145)
== END | disposition home or self-care (01) ==
LOC: LABWHC1 10:39
PROVIDERS: ATTEND Internal Medicine
DX: I10 Essential (primary) hypertension (principal)
CPT/HCPCS: 36415; 80048; 83735

== ENCOUNTER → 2024-03-25 | Outpatient (CLI) | payer MEDICARE ==
--- NOTE | 2024-03-25 11:51 | XR ---
EXAMINATION TYPE: XR bone survey complete DATE OF EXAM: 03/25/2024 COMPARISON: No direct comparisons. HISTORY: Monoclonal gammopathy Bony calvarium : 2 views of the bony calvarium demonstrate no sclerotic or lytic osseous lesions. Spine: Two views of the cervical, thoracic and lumbar spines are submitted. Anterior cervical fusion hardware. Grade 1 anterolisthesis of L5 on S1. No sclerotic or lytic osseous lesions. Chest: 2 views of the chest are submitted. No sclerotic or lytic osseous lesions. Right breast surgic al clips. PELVIS: Single view of the pelvis demonstrates. Pelvic phleboliths. No sclerotic or lytic osseous le sions. UPPER EXTREMITIES: Two views of the upper extremities. No sclerotic or lytic osseous lesions. LOWER EXTREMITIES: 2 views of the lower extremities. Postsurgical changes from right total hip arthro plasty and bilateral knee arthroplasty. No sclerotic or lytic lesions. IMPRESSION: No sclerotic or lytic osseous lesions identified.
== END | disposition home or self-care (01) ==
LOC: RADXRMAIN 10:33
PROVIDERS: ATTEND Internal Medicine Hematology & Oncology
DX: D47.2 Monoclonal gammopathy (principal); C50.411 Malignant neoplasm of upper-outer quadrant of right female breast; Z17.0 Estrogen receptor positive status [ER+]; M10.9 Gout, unspecified
CPT/HCPCS: 77075

== ENCOUNTER → 2024-08-03 | Outpatient (CLI) | payer MEDICARE ==
--- NOTE | 2024-08-09 18:21 | MR ---
EXAMINATION TYPE: MR cervical spine wo/w con DATE OF EXAM: 08/03/2024 4:44 PM COMPARISON: None. CLINICAL INDICATION: Female, 74 years old with history of M50.90 CERVICAL DISC DISORDER, UNSP, UNSPEC IFIED C, Pins and needles in both hands - feel asleep and painful x 8 months TECHNIQUE: Multiplanar multiecho imaging on a 3.0 Piedad magnet is performed through the cervical spin e. The susceptibility artifact from anterior cervical fusion anomalies labeling the levels difficult. This appears to be a C3-C5 anterior cervical fusion. IV Contrast: 8 mL Gadobutrol (None, if empty) FINDINGS: The craniovertebral junction is normal. Vertebral body alignment has a grade 1 anterior li sthesis of C2 anteriorly on C3. C7-T1: No focal disc herniation or significant disc bulge is evident. No spinal canal stenosis or n eural foraminal stenosis is present. C6-7: In the sagittal plane a disc herniation with extension beyond the endplate of C5 appears to be present. This has minimal anterior thecal sac compression. No cord contact or spinal canal stenosis p resent.. C5-6: Based disc bulge is mild anterior thecal sac compression. No spinal canal stenosis or cord cont act is evident. Moderate to severe bilateral foraminal stenosis present from uncovertebral joint hype rtrophy. There is loss of disc height this level.. C4-5: No focal disc herniation or significant disc bulge is evident. No spinal canal stenosis or bryan ral foraminal stenosis is present. C3-4: No focal disc herniation or significant disc bulge is evident. No spinal canal stenosis or bryan ral foraminal stenosis is present. C2-3: There is moderate anterior thecal sac compression. Cord contact and cord deformity is present. Posterior longitudinal ligament hypertrophy is present with posterior sac compression. AP spinal jacquie l stenosis 0.6 cm is present. Cord contact with some signal abnormality is present. This is also appr eciated in the sagittal inversion recovery and T2 sequences. IMPRESSION: 1. Spinal canal stenosis appears severe at the C2-3 level secondary to ligament laxity and a rate 1 s pondylolisthesis of C2 anteriorly on C3. Cord contact and abnormal cord signal is evident. 2. Anterior cervical fusion C3-C5 causes some limitation disc levels evaluation. 3. Mild disc bulge without cord contact spinal canal stenosis lower cervical spine [facility], , 08/09/2024 6:19 PM
== END | disposition home or self-care (01) ==
LOC: RADMRIMAIN 15:19
PROVIDERS: ATTEND Internal Medicine
DX: M50.922 Unspecified cervical disc disorder at C5-C6 level (principal); M43.12 Spondylolisthesis, cervical region; M48.02 Spinal stenosis, cervical region
CPT/HCPCS: 72156; A9585

== ENCOUNTER → 2024-08-19 | Outpatient (CLI) | payer MEDICARE ==
--- NOTE | 2024-08-19 11:23 | CT ---
EXAMINATION TYPE: CT cervical spine wo con CT DLP: 428.2 mGycm, Automated exposure control for dose reduction was used. DATE OF EXAM: 08/19/2024 11:06 AM COMPARISON: MR cervical spine 08/03/2024, cervical spine radiograph 06/22/2019. CLINICAL INDICATION:Female, 74 years old with history of M54.2 CERVICALGIA; PHH, pre op neck pain TECHNIQUE: Axial CT images from the skull base to the inferior aspect of T2 we obtained without intra venous contrast. Coronal and sagittal reformatted images were also reviewed. FINDINGS: Fracture: None. Osseous structures: Postsurgical changes from ACDF C3-C6. Hardware appears intact with appropriate al ignment. There is fusion of C3-C6 vertebral bodies. Nonfusion of the C6-C7 vertebral bodies. Degenera tive changes of the C1-C2 articulation. Prominent anterior osteophyte at C6-C7. Vertebral alignment: Grade 2 anterolisthesis of C2 on C3. Straightening of the cervical spine. Spinal canal/Neural Foramina: Broad-based disc bulge at C2-C3 with mild to moderate central canal ludwin nosis secondary to anterolisthesis as demonstrated on prior MRI. C5-C6 broad-based disc bulge with mi ld effacement of anterior thecal sac. No significant central canal stenosis. Broad-based disc bulge a t C6-C7 with mild effacement of the anterior thecal sac without significant central canal stenosis. A nd no other significant central canal stenosis of the visualized cervical spine. Fusion of the left C3-C4 and C4-C5 facet joint. Fusion of the right C3-C4 facet joint. Multilevel fac et arthropathy. Mild bilateral neural foraminal stenosis at C3-C4. Mild right neural foraminal stenos is at C4-C5. Moderate bilateral neuroforaminal stenosis at C5-C6. Moderate bilateral neural foraminal stenosis at C6-C7. No significant neural foraminal stenosis at C7-T1 or C2-C3. Neck soft tissues: Prevertebral soft tissues are within normal limits. Other: The airway is patent. The lung apices are clear. Bilateral carotid bulb calcifications. Multin odular thyroid gland with hypodense nodules measuring up to at least 1.2 cm. IMPRESSION: 1. No evidence of cervical spine fracture. 2. Postsurgical changes from ACDF C3-C6. 3. Moderate multilevel degenerative disc disease of the lower cervical spine from C5 through C7 as de scribed above. Varying degrees of neural foraminal stenosis. 4. Stable grade 2 anterolisthesis of C2 on C3. [facility], , 08/19/2024 11:21 AM
== END | disposition home or self-care (01) ==
LOC: RADCTMAIN 10:46
PROVIDERS: ATTEND Orthopaedic Surgery Orthopaedic Surgery of the Spine
DX: M50.323 Other cervical disc degeneration at C6-C7 level (principal); M99.71 Connective tissue and disc stenosis of intervertebral foramina of cervical region; M43.12 Spondylolisthesis, cervical region; Z98.1 Arthrodesis status
CPT/HCPCS: 72125

== ENCOUNTER → 2024-08-27 | Outpatient (CLI) | payer MEDICARE ==
[2024-08-27 10:16] LABS: INR 0.9 (<1.2); Partial Thromboplastin Time 22.9 sec (22.0-30.0); Prothrombin Time 9.8 sec (10.0-12.5)
--- NOTE | 2024-08-27 10:28 | XR ---
2 view chest HISTORY: Presurgical COMPARISON: 06/11/2019 TECHNIQUE: PA and lateral views chest obtained. FINDINGS: The lungs are clear of consolidative, interstitial or masslike opacity. There is no pleural effusion, pleural thickening or pneumothorax. The heart, pulmonary vasculature, mediastinum and tracy are within normal limits. The osseous structures are intact. There are surgical farzad in the region of the right breast. IMPRESSION: No significant abnormality. No acute cardiopulmonary disease. [facility], Workstation: [id number] 08/27/2024 10:26 AM
[2024-08-27 10:40] LABS: Appearance,Urine Clear (Clear); Bilirubin,Urine Negative (Negative); Blood,Urine Negative (Negative); Color,Urine Light Yellow; Glucose,Urine (UA) 4+ (Negative); Ketones,Urine Negative (Negative); Leukocyte Esterase,Urine Moderate (Negative); Mucus,Urine Rare /hpf; Nitrite,Urine Negative (Negative); Protein,Urine Negative (Negative); RBC,Urine 1 /hpf (0-5); Specific Gravity,Urine 1.036 (1.001-1.035); Squamous Epithelial Cell,Urine 1 /hpf (0-4); Urobilinogen,Urine <2.0 mg/dL (<2.0); WBC,Urine 2 /hpf (0-5)
[2024-08-27 16:01] LABS: Basophils # (A) 0.05 X 10*3/uL (0.00-0.10); Basophils % (A) 0.7 %; Eosinophils # (A) 0.14 X 10*3/uL (0.04-0.35); Eosinophils % (A) 1.9 %; HCT 47.6 % (37.2-46.3); HGB 15.1 g/dL (12.0-15.0); Lymphocytes # (A) 1.45 X 10*3/uL (0.90-5.00); Lymphocytes % (A) 19.4 %; MCH 31.9 pg (27.0-32.0); MCHC 31.7 g/dL (32.0-37.0); MCV 100.6 FL (80.0-97.0); Mean Platelet Volume 11.5 FL (9.5-12.2); Monocytes # (A) 0.58 X 10*3/uL (0.20-1.00); Monocytes % (A) 7.8 %; NRBC Per 100 WBC 0 X 10*3/uL (0.00-0.01); Neutrophils # (A) 5.21 X 10*3/uL (1.80-7.70); Neutrophils % (A) 69.5 %; Platelet Count 239 X 10*3/uL (140-440); RBC 4.73 X 10*6/uL (4.10-5.20); RDW 13.8 % (11.5-14.5); WBC 7.48 X 10*3/uL (4.50-10.00)
[2024-08-27 16:06] LABS: BUN/Creat Ratio 23.67 Ratio (12.00-20.00); Blood Urea Nitrogen 21.3 mg/dL (9.0-27.0); Calcium 9.8 mg/dL (8.7-10.3); Carbon Dioxide 23.6 mmol/L (21.6-31.8); Chloride 106 mmol/L (96-109); Glucose 202 mg/dL (70-110); Potassium 4.1 mmol/L (3.5-5.5); Sodium 139 mmol/L (135-145)
[2024-08-27 22:50] LABS: Microalbumin Creatinine Ratio <15 mg/g Cr (0-30); Urine Creatinine 81.7 mg/dL (28.0-217.0)
== END | disposition home or self-care (01) ==
LOC: LABPAT 09:33
PROVIDERS: ATTEND Orthopaedic Surgery Orthopaedic Surgery of the Spine
DX: Z01.818 Encounter for other preprocedural examination (principal); Z22.322 Carrier or suspected carrier of Methicillin resistant Staphylococcus aureus; M50.00 Cervical disc disorder with myelopathy, unspecified cervical region; E11.9 Type 2 diabetes mellitus without complications
CPT/HCPCS: 71046; 80048; 81001; 82043; 82570; 85025; 85610; 85730; 86850; 86900; 86901; 87070; 93005

== ENCOUNTER 2024-09-07 05:37 | Inpatient (IN) | payer MEDICARE ==
[~2024-09-07 05:37] MED LIST changes: -ACETAMINOPHEN TAB 500 MG TAB PO PRN; -DEXAMETHASONE SOD PHOSPHATE 4 MG/ML 1 ML VIAL IV ONE; -GABAPENTIN 300 MG CAP PO PRN; -HYDROmorphone 0.5 MG/0.5 ML SYRINGE IVP PRN; -LIDOCAINE 1% (10MG/ML) FOR IV START INTRADERMA PRN; -MAGNESIUM HYDROXIDE 2,400 MG/10 ML CUP PO PRN; -MELOXICAM 7.5 MG TAB PO PRN; -NALOXONE 0.4 MG/ML 1 ML VIAL IV PRN; -ONDANSETRON 4 MG/2 ML VIAL IVP ONE; -ONDANSETRON 4 MG/2 ML VIAL IVP PRN; -TRANEXAMIC ACID IN NACL,ISO-OS 1,000 MG in SALINE 1 100ML.BAG IVPB PRN; +ceFAZolin 1,000 MG in SODIUM CHLORIDE 0.9% IRRIGATIO 1,000 ML IRRIGATION PRN; -traMADol 50 MG TAB PO PRN
[2024-09-07] MEDS: IV FLUID CONTINUATION 1,000 ML IV ONE ×2 (06:07→06:50)
[2024-09-07] MEDS: LACTATED RINGERS 1,000 ML IV SCH (06:39)
[2024-09-07 06:50] LABS: Glucose,Whole Blood 138 mg/dL (70-110)
[2024-09-07] MEDS: ONDANSETRON 4 MG/2 ML VIAL IVP ONE (06:51)
[2024-09-07] MEDS: DEXAMETHASONE SOD PHOSPHATE 4 MG/ML 1 ML VIAL IV ONE (06:51)
[2024-09-07] MEDS ORDERED: MIDAZOLAM 2 MG/2 ML VIAL IV PRN (07:00)
[2024-09-07] MEDS: FAMOTIDINE 20 MG/2 ML VIAL IV STA (07:03)
[2024-09-07] MEDS ORDERED: diphenhydrAMINE 50 MG/ML 1 ML VIAL ONE (07:25)
[2024-09-07] MEDS ORDERED: ROCURONIUM 10 MG/ML (5 ML VIAL) IV ONE (07:25)
[2024-09-07] MEDS ORDERED: HYDROmorphone (PF) 1 MG/ML ONE (07:25)
[2024-09-07] MEDS ORDERED: KETAMINE HCL IN 0.9 % NACL 50 MG/5 ML SYRINGE ONE (07:25)
[2024-09-07] MEDS ORDERED: GLYCOPYRROLATE 0.2 MG/ML 2 ML VIAL ONE (07:25)
[2024-09-07] MEDS ORDERED: fentaNYL (PF) 50 MCG/ML 2 ML AMP ONE (07:25)
[2024-09-07] MEDS ORDERED: PHENYLEPHRINE-0.9% NACL SYG 1,000 MCG/10 ML SYRINGE ONE (07:25)
[2024-09-07] MEDS ORDERED: LIDOCAINE 1% INJ 10MG/ML (20 ML MDV) ONE (07:25)
[2024-09-07] MEDS ORDERED: PROPOFOL 10 MG/ML 20 ML VIAL IV ONE (07:25)
[2024-09-07] MEDS ORDERED: SUCCINYLCHOLINE CHLORIDE 200 MG/10 ML VIAL IV ONE (07:25)
[2024-09-07] MEDS ORDERED: ACETAMINOPHEN IV (For NPO) 1,000 MG/100 ML VIAL ONE (07:25)
[2024-09-07] MEDS ORDERED: DEXAMETHASONE SOD PHOSPHATE 10 MG/ML 1 ML VIAL ONE (07:25)
[2024-09-07] MEDS ORDERED: NEOSTIGMINE 1 MG/ML 10 ML VIAL ONE (07:25)
[2024-09-07] MEDS ORDERED: MIDAZOLAM 2 MG/2 ML VIAL ONE (07:25)
[2024-09-07] MEDS: ceFAZolin 1,000 MG in SODIUM CHLORIDE 0.9% IRRIGATIO 1,000 ML IRRIGATION PRN (08:25)
[2024-09-07] MEDS: LIDOCAINE 1%-EPI 1:100,000 20 ML VIAL SQ ONE ×2 (08:25→08:33)
[2024-09-07] MEDS: THROMBIN (BOVINE) 5,000 UNIT VIAL TOPICAL ONE (08:34)
[2024-09-07] MEDS: LACTATED RINGERS 1,000 ML IV ONE (10:12)
[2024-09-07] MEDS ORDERED: ONDANSETRON 4 MG/2 ML VIAL IVP PRN (11:39)
[2024-09-07] MEDS ORDERED: traMADol 50 MG TAB PO PRN (11:41)
[2024-09-07] MEDS ORDERED: hydrOXYzine HCL 10 MG TAB PO PRN (11:41)
[2024-09-07] MEDS: fentaNYL (PF) 50 MCG/ML 2 ML AMP IV PRN (11:42)
[2024-09-07] MEDS ORDERED: CHOLECALCIFEROL 125 MCG (5000 IU) TABLET PO SCH (12:00)
--- NOTE | 2024-09-07 12:02 | P.OP ---
Date of Procedure: 09/07/24 Preoperative Diagnosis: Severe spinal stenosis C2-3, dynamic spondylolisthesis C2-3, upper extremity radiculopathy, upper extremity weakness, prior cervical fusion C3-6 Postoperative Diagnosis: Same Procedure(s) Performed: Posterior cervical decompression and fusion C2-3 with pedicle screw and pars screw instrumentation at C2 and lateral mass instrumentation C3 and C4 Posterior cervical decompression with laminectomy and partial foraminotomies C2- 3 Evaluation of fusion C3-4 C4-5 C5-6 with findings of solid fusion Use of the [employer] CT-guided navigation system for hardware placement Use of fluoroscopic guidance for hardware placement Harvesting of local autogenous bone graft for use and fusion Use use of bone graft extenders with allograft fibers to supplement the local antis bone graft Neuromonitoring intraoperatively Anesthesia: GETA Pathology: none sent Condition: stable Disposition: PACU Description of Procedure: DESCRIPTION OF PROCEDURE(S): BRIEF OPERATIVE NOTE Preoperative Diagnosis: Severe cervical stenosis C2-3, dynamic spondylolisthesis C2-3, upper extremity radiculopathy, upper extremity weakness, cervical myelopathy, prior cervical fusion see 3-6 anteriorly Postoperative Diagnosis: Same Procedure: Posterior cervical decompression and fusion C2-3 with pedicle screw and pars screw instrumentation at C2 and lateral mass instrumentation C3 and C4 Posterior cervical decompression with laminectomy and partial foraminotomies C2-3 Evaluation of fusion C3-4 C4-5 C5-6 with findings of solid fusion Use of the [employer] CT-guided navigation system for hardware placement Use of fluoroscopic guidance for hardware placement Harvesting of local autogenous bone graft for use and fusion Use use of bone graft extenders with allograft fibers to supplement the local antis bone graft Neuromonitoring intraoperatively Surgeon: Dr. Dyson Advisor Advocate [employer] Founder: Saima KEY Anesthesia: General anesthesia per Dr. Kimbrough Estimated blood loss: Proxy 150 cc Complications: None apparent Components implanted: [place] K2 M posterior cervical screw system with 3.5 millimeter screws with a pedicle screw at C2 on the right and a C2 pars screw on the left and lateral mass screws at C3 and C4 bilaterally with 2 rods and allograft bone fibers to supplement the local autogenous bone graft Disposition: To recovery room in good stable condition. OPERATIVE INDICATIONS The patient has had long-standing issues in their neck and upper extremities. Many years ago she went through anterior cervical decompression and fusion C3-6 and had good results with this. She had been doing very nicely over the past several years however over the past few months she has been having worsening symptoms particularly at her neck and with her upper extremities. She has developed some weakness at upper extremities and changes in balance and function. She was found to have evidence of severe spinal stenosis at C2-3 with evidence of myelopathy on her exam. She had a dynamic spondylolisthesis at C2-3 and her other levels appear to be solidly fused from C3-6. We discussed this with her at length. We discussed the nature of the instability at C2-3 and the severe stenosis. The patient had been through conservative treatment. I felt that her best course of options in treatment would be to pursue stabilization at C2-3 level with decompression. We discussed various treatment options including surgery, and the patient wishes to proceed with surgery We discussed the risk, patient's alternatives and benefits of surgery including but not limited to, risk of bleeding risk of infection, risk of need for further surgery, risk of decreased, loss of motion, muscle function, malunion nonunion, hardware failure, nerve damage, paralysis, heart attack, blindness and . OPERATIVE SUMMARY After discussing all the risks, patient alternatives and benefits at length, the patient elected to proceed with surgical intervention, signed informed consent, and presented for their procedure. The patient was seen and examined in the preoperative holding area and the surgical site was marked. The patient was given antibiotics and brought to the operating room. The patient was sedated and intubated by anesthesia in standard fashion. While the patient was supine on her stretcher I was able to clean the area for the river ropriate Munoz keeper head and I was able to apply the Munoz keeper head to her scalp appropriately with the appropriate compression. He was found to be stable and clear. The patient was positioned on to the operating room table in a prone position with the Munoz keeper head intact and in good position and alignment with her neck in good neutral alignment and position on the appropriate frame which was well-padded and well molded. We were careful to pad any bony prominences and pressure points. We were careful to maintain the patient's cervical spine and good neutral alignment and position throughout. C arm was brought in and I was able to manipulate the area at her cervical spine carefully to get excellent alignment position at C2 on C3 with good reduction of the listhesis in her neck in good neutral lamina and position. The patient was prepped and draped in a normal standard fashion. I did shave some of her hair posteriorly . an appropriate timeout and keystone protocol performed. We were able to proceed with the surgery. The local wound area was infiltrated with local anesthetic. Incision was made sharply through skin skin base tissue at the midline from C2-C 7. I was able to dissect down over the spinous processes over the lamina and down to the lateral masses and over the lamina and lateral aspect of C2 bilaterally. Intraoperative C-arm was utilized to establish appropriate level positively. Note was made of obvious hypermobility at C2-3. There was good stability at C2-3-4 C4-5 and at C5-6. I was able to explore the area and there was no evidence of any motion at C 3 4 C4 5 C56. I was then able to position and prepare for placement of the screws at C2. I was able to study the CT and imaging prior to the surgery and I determined that I would be able to attempt placement of a pedicle screw at C2 on the right and plan for a pars screw at C2 on the left given the very small pedicle on the left side. I placed a clamp for [employer] guidance navigation at C4 spinous process. The wound was mouna irrigated and suctioned dry and draped appropriately we did an appropriate spin with the CT navigation system. Is able to visualize the area and had good guidance. With the guidance as well as the C arm in good position I was able to establish starting point at C2 in preparation for the pedicle screw on the right. I started a drill point and then used a drill 2 mm at a time palpating the drill hole went every 2 mm to get good alignment good position. This was monitored closely on guidance with CT scan and with the intraoperative C arm repeatedly. Is able to get excellent alignment and position the hole was palpated and good for land good base mall was tapped and a 3.5 x 20 mm screw was placed in good alignment good position with excellent bony purchase at the pedicle of C2 on the right. On the left side in similar fashion I prepared for placing a pars screw. This was done with guidance as well with 2 mm increments down to a 14 mm drill. The hole was palpated for found have good for land. I was able to tap and placed the screw in good alignment good position with good bony purchase on the left L2 pars screw at 14 mm. I was then able to prepare for placement of the lateral mass screws at C3 and C4 bilaterally. The starting point was established the drill hole was established in the appropriate lamina and position with guidance and screws at 12 mm were placed at C3 and C4 bilaterally with good bony purchase. A spin was done again with CT intraoperative guidance and showed excellent alignment position of all the hardware. There was a half of a thread prominent at C2 on the left toward the canal and I backed it off one half screw turn appropriately. All the hardware in good alignment good position with good bony purchase. I was then able to place the rods bilaterally they were contoured to allow good position without changing alignment of the C2-3 space. The Screws were placed tightened and torqued appropriately with good fixation and stability. Final images were taken which showed excellent position of the hardware from C2-C4. Good hemostasis maintained. There is no evidence of any dural tear or leak. The wound was irrigated and suctioned dry. I was then able to turn my attention to the decompression. At C2-3 use combination of curettes Kerrisons to perform a laminectomy decompression. All the bone that was removed was stripped and morselized for use of local antis bone graft. The facet joints bilaterally at C2-3 were scraped out with curettes and high-speed bur. The posterior lateral areas of the lateral masses of C3 and C4 were decorticated as well. I performed a wide central decompression. There was note of severe stenosis and thickening of the ligamentum which was taken down to get excellent decompression. There is no evidence of any dural tear or leak. With this intact I was able to place the local autogenous bone graft with additional bone graft enhancer as necessary into the decorticated facet joints of C2-3 as well as decorticated lateral masses. T With the bone graft intact, a stable construct, and good decompression at the appropriate levels, we were able to proceed with closure. Good hemostasis was maintained. There is no evidence of dural tear or leak. The fascia was closed for a watertight closure. he subcuticular tissue was closed with absorbable suture. Skin was closed with farzad. The wound was cleaned and dried and dressed with the appropriate dressing. The drapes were broken down. The patient was gently rolled back onto their hospital bed being careful to maintain their cervical spine and good neutral alignment and position in her hard collar. I was able to remove the Munoz keeper head atraumatically without any evidence of any issues at the pin sites. They were woken up by anesthesia, extubated, and brought to the recovery room in good stable condition. The patient will be admitted to the hospital for appropriate postoperative care, medical management and monitoring. We will continue to follow them closely about the postoperative course.
--- NOTE | 2024-09-07 12:03 | FL ---
EXAMINATION TYPE: FL guidance operating room, XR cervical spine 1V DATE OF EXAM: 09/07/2024 10:44 AM COMPARISON: Pre Operative Images if available both CT/MRI or plain film CLINICAL INDICATION: Female, 74 years old with history of CERVICAL DECOMPRESSION FUSION C-2-3; TECHNIQUE: FL guidance operating room, XR cervical spine 1V, multiple fluoroscopic images provided fo r procedure. Total fluoroscopy time: 53 seconds Total submitted images to PACS: 3 DAP: [id number] mGym2 Gycm2 uGym2 cGycm2 or equivalent. FINDINGS: Fluoroscopic images during internal fixation/arthroplasty demonstrate hardware in appropriate positio n. Hardware appears intact. No immediate complication identified. IMPRESSION: 1. No evidence for intraoperative complication. 2. Please see the operative/procedural note for further details. [facility], , 09/07/2024 10:47 AM
[2024-09-07] MEDS: SODIUM CHLORIDE 0.9% 1,000 ML IV SCH (12:56)
[2024-09-07] MEDS: ACETAMINOPHEN TAB 325 MG TAB PO SCH (13:48)
[2024-09-07] MEDS: CHOLECALCIFEROL 125 MCG (5000 IU) TABLET PO SCH (13:54)
[2024-09-07] MEDS ORDERED: DEXTROSE 50% SYRINGE 50 ML IVP PRN ×2 (13:55)
[2024-09-07] MEDS: HYDROmorphone 1 MG/ML 1 ML SYRINGE IVP PRN (13:56)
[2024-09-07 16:39] LABS: Glucose,Whole Blood 145 mg/dL (70-110)
[2024-09-07] MEDS: INSULIN ASPART (NovoLOG) 100 UNIT/ML VIAL SQ SCH (16:41)
[2024-09-07] MEDS: ANASTROZOLE 1 MG TAB PO SCH (18:08)
[2024-09-07] MEDS: HYDROcodone/APAP 5-325MG 1 EACH TAB PO PRN (18:08)
[2024-09-07] MEDS: ATORVASTATIN 20 MG TAB PO SCH (20:59)
[2024-09-07] MEDS: PROPRANOLOL 20 MG TAB PO SCH (20:59)
[2024-09-07] MEDS: BENZOCAINE/MENTHOL LOZENG 1 EACH LOZENGE MUCOUS MEM PRN (20:59)
[2024-09-07 21:28] LABS: Glucose,Whole Blood 233 mg/dL (70-110)
[2024-09-07] MEDS: CYCLOBENZAPRINE 10 MG TAB PO PRN (23:46)
[2024-09-08 06:29] LABS: Glucose,Whole Blood 147 mg/dL (70-110)
[2024-09-08] MEDS ORDERED: HYDROmorphone 0.5 MG/0.5 ML SYRINGE IVP PRN (07:00)
[2024-09-08] MEDS: allopurinoL 100 MG TAB PO SCH (08:49)
[2024-09-08] MEDS: SENNOSIDES-DOCUSATE SODIUM 1 EACH TAB PO SCH (08:50)
[2024-09-08] MEDS: SPIRONOLACTONE 25 MG TAB PO SCH (08:50)
[2024-09-08] MEDS: MULTIVITAMINS, THERA 1 EACH TAB PO SCH (08:50)
[2024-09-08] MEDS: DAPAGLIFLOZIN PROPANEDIOL 10 MG TABLET PO SCH (08:51)
[2024-09-08 11:50] LABS: Glucose,Whole Blood 109 mg/dL (70-110)
--- NOTE | 2024-09-08 11:58 | P.PN ---
Subjective Progress Note Date: 09/08/24 Hospital Course: Patient is a 74-year-old female with past medical history of left total knee ar throplasty, right breast cancer 2017 surgery and radiation treatment, diabetes mellitus, hypertension, osteoarthritis, HTN, HLD, severe spinal stenosis C2-C3, dynamic spondylolisthesis C2-C3, upper extremity radiculopathy, upper extremity weakness, prior cervical fusion C3 C6 who presented for elective posterior cervical decompression and fusion C2-C3 with pedicle screw and pars screw instrumentation in situ and lateral mass instrumentation C3 and C4, posterior cervical decompression with laminectomy and partial foraminotomy C2-T3, that was performed on 09/07/2024, no complications reported postoperatively. IM service asked to see the patient for management of chronic medical conditions. 09/07 overnight patient reported having blood through the dressing, she complains of pain, able to move around and sit in recliner. Bilateral arm tingling is still present Pertinent positives and negatives as discussed above, a complete review of systems was performed and all other systems are negative. Vitals Signs Reviewed. General: nontoxic, no distress, appears at stated age Derm: warm, dry Head: atraumatic, normocephalic, symmetric Eyes: EOMI, no lid lag, anicteric sclera, pupils equal round reactive to light ENT: Nose and ears atraumatic Neck: No thyromegaly, supple Mouth: no lip lesion, mucus membranes moist Cardiovascular: S1S2 reg, no murmur, no edema Lungs: clear to auscultation bilateral, no rhonchi, no rales, no wheeze, no accessory muscle use Abdominal: soft, nontender to palpation, no guarding, no appreciable organomegaly Ext: no gross muscle atrophy, no contractures Neuro: CN II-XII grossly intact Psych: Alert, oriented, appropriate affect Data Reviewed Today: Pertinent Labs: Blood glucose is fairly controlled Assessment and Plan: diabetes mellitus: Continue home glipizide, Farxiga, Accu-Cheks, SSI hypertension: Continue spironolactone, propranolol, monitor for hypotension in the settings of opioid use osteoarthritis HLD: Continue atorvastatin History of breast cancer: Continue anastrozole severe spinal stenosis C2-C3, dynamic spondylolisthesis C2-C3, upper extremity radiculopathy, upper extremity weakness prior cervical fusion C3 s/p elective posterior cervical decompression and fusion C2-C3 with laminectomy and partial foraminotomy C2-T3, 09/07/2024 -Neurosurgical management, pain management, VT prophylaxis -PT OT -Ordered CBC -Patient is hemodynamically stable, overall stable from IM standpoint, per patient, she will be observed overnight and likely discharged on 09/09 DVT prophylaxis: per Surgical team Objective - Vital Signs Vital signs: Vital Signs Temp 98.3 F 09/08/24 07:04 Pulse 74 09/08/24 08:52 Resp 17 09/08/24 08:52 BP 122/62 09/08/24 07:04 Pulse Ox 94 L 09/08/24 07:04 FiO2 Intake & Output 09/07/24 09/08/24 09/08/24 18:59 06:59 18:59 Intake Total 2151 Output Total 325 2600 Balance 1826 -2600 Intake: IV 2151 Output: Urine 175 2600 Estimated Blood Loss 150 Other: Voiding Method Indwelling Catheter Indwelling Catheter Toilet # Voids 0 - Labs Labs: Abnormal Lab Results - Last 24 Hours (Table) 09/07/24 09/07/24 09/08/24 Range/Units 16:38 21:26 06:28 POC Glucose (mg/dL) 145 H 233 H 147 H (70-110) mg/dL
--- NOTE | 2024-09-08 12:01 | P.PN ---
Progress Note - Text Progress Note Date: 09/08/24 Postoperative day #1 Patient is seen and examined today at bedside. The patient has some pain around the surgical site as expected. She had difficulty with the pain overnight but is doing a little bit better today. Pain is being controlled with medication. She has been up and ambulating in the hallways. She has a hard cervical collar intact. There is some bloody drainage on the dressing this morning. She is voiding freely. Physical Exam Afebrile with stable vital signs Abdomen is soft nontender. Chest has good excursion deep and space expiration Her cervical collar is intact. She is moving her head well but gently within the collar The incision site is clean and intact. There is small bloody drainage but the farzad are intact. There is no purulence. There is no significant fluid collection. No erythema there is no purulence. Extremities have not had neurologic change from prior to surgery. She has good motion in her hands and fingers. She has good motion in her hands and she is ambulating well in the room Calves and thighs were soft nontender without evidence of DVT. Assessment/Plan Postoperative day #1 status post posterior cervical decompression and fusion C2- 3 with placement of hardware C2-4 for her cervical myelopathy with severe stenosis and dynamic listhesis at C2-3 Patient is progressing as expected from the surgery. There is still some bloody seepage at the wound site but it does not appear to be purulent. Will continue to follow the incision site closely. We will continue to increase the patient's mobilization with therapy. She should continue her hard cervical collar at all times We will continue pain control with oral or IV medications. She may be ready for discharge home tomorrow. We'll continue to follow patient closely.
[2024-09-08 12:48] LABS: HCT 44.3 % (34.0-46.0); HGB 14.3 gm/dL (11.4-16.0); MCH 31.8 pg (25.0-35.0); MCHC 32.2 g/dL (31.0-37.0); MCV 98.6 fL (80.0-100.0); Mean Platelet Volume 8.6; Platelet Count 212 k/uL (150-450); RBC 4.49 m/uL (3.80-5.40); RDW 13.3 % (11.5-15.5); WBC 11.1 k/uL (3.8-10.6)
[2024-09-08 16:37] LABS: Glucose,Whole Blood 171 mg/dL (70-110)
[2024-09-08 20:33] LABS: Glucose,Whole Blood 200 mg/dL (70-110)
[2024-09-08 21:25] VITALS: RESP 16
[2024-09-09 06:10] LABS: Glucose,Whole Blood 140 mg/dL (70-110)
[2024-09-09 08:31] VITALS: BP 138/80; PULSE 88; TEMP 98.4
--- NOTE | 2024-09-09 11:39 | P.DS ---
Providers Date of admission: 09/07/24 05:37 Expected date of discharge: 09/09/24 Attending physician: Sandra Dyson Consults: 09/07/24 11:39 Consult Physician Routine Consulting Provider: Nimisha Jaramillo Consult Reason/Comments: Medical management Do you want consulting provider notified?: Yes Primary care physician: Dejuan Hernández - Discharge Diagnosis(es) (1) Diabetes mellitus Current Visit: Yes Status: Acute (2) History of cervical spinal arthrodesis Current Visit: Yes Status: Acute (3) Status post cervical spinal fusion Current Visit: Yes Status: Acute (4) Stenosis of cervical spine with myelopathy Current Visit: Yes Status: Acute (5) Cervical spinal stenosis Current Visit: No Status: Acute (6) Cervicalgia Current Visit: No Status: Acute (7) History of hyperlipidemia Current Visit: No Status: Acute (8) History of hypertension Current Visit: No Status: Acute (9) Radiculopathy affecting upper extremity Current Visit: No Status: Acute (10) Upper extremity weakness Current Visit: No Status: Acute Hospital Course: This is a pleasant 74-year-old female who presented with C2-3 severe spinal stenosis and dynamic spondylolisthesis, upper extremity radiculopathy, upper extremity weakness, and history of previous anterior cervical decompression and fusion C3-6 with retained hardware who failed outpatient conservative therapy. She was admitted for a C2-3 posterior cervical decompression and fusion. The patient tolerated the procedure well and did well postoperatively. She is having some pain at her posterior cervical spine at the surgical site but feels her pain has been controlled with medication. She feels her symptoms are well enough controlled she would like to be discharged home today. She feels she could manage at home. She has continued to maintain her hard cervical collar at all times. Condition on day of discharge stable. Patient will be discharged home. Patient was cleared preoperatively for surgery by Dr. Hernández. Patient currently denies any nausea, vomiting, fever, or chills. Patient is eating and voiding freely without difficulty. Patient may shower Optifoam dressing intact. Patient may remove Optifoam dressing in 3 days and shower without a dressing at that time. Patient should refrain from driving until at least after their first follow-up appointment in the office. Patient should avoid excessive neck flexion, extension, rotation, and lateral sidebending; no overhead lifting; no lifting greater than 10 pounds. Patient must keep hard cervical collar intact at all times. MAPS has been previously reviewed. An "Opiod Start Talking" Form has been signed and placed in the patient's chart. A prescription has been written for hydrocodone 5 mg / 325 mg, 1 tab, every 4 hours, as needed for acute pain, dispense #42. Prescriptions were also given for baclofen 10 mg 1 tab 3 times daily as needed for muscle spasm, dispense #60 and Senokot-S, 1 tab, twice daily, as needed for constipation, dispense #60. Prescriptions are sent to the [facility] pharmacy located within [facility]. Patient's other medical diagnoses include hypertension, elevated cholesterol, and type 1 diabetes. Physical Exam on day of discharge: Patient is awake, alert, and oriented 3 Vital signs stable Good chest excursion with deep inspiration and expiration No signs or symptoms of DVT; no calf pain Hard cervical collar is intact. Dressing is removed at the bedside and reapplied with nonstick Telfa and Tegaderm [place] remain intact at the posterior cervical spine. No current active drainage or obvious sign of infection at the surgical site at the posterior cervical spine Bruising around the posterior cervical spine Hard cervical collar is removed and reapplied appropriately during physical examination Reduced range of motion of the cervical spine with hard cervical collar intact Film Recordist strength, thumb strength, interosseous strength, biceps strength, triceps strength, and shoulder strength positive sustained bilaterally Procedures: C2-3 posterior cervical decompression and fusion Patient Condition at Discharge: Stable Plan - Discharge Summary Discharge Rx Participant: Yes New Discharge Prescriptions: New Baclofen 10 mg PO TID PRN #60 tab PRN Reason: Spasms Sennosides-Docusate Sodium [Senokot-S] 1 tab PO BID PRN #60 tablet PRN Reason: Constipation HYDROcodone/APAP 5-325MG [[place] 5-325] 1 tab PO Q4HR PRN #42 tab PRN Reason: Pain No Action Multivitamins, Thera [Multivitamin (formulary)] 1 tab PO DAILY Anastrozole [Arimidex] 1 mg PO DAILY@1800 Propranolol [Inderal] 20 mg PO BID allopurinoL [Zyloprim] 300 mg PO DAILY Cholecalciferol (Vitamin D3) [Vitamin D3] 5,000 unit PO MO Atorvastatin Calcium [Lipitor] 20 mg PO HS glipiZIDE [glipiZIDE ER] 2.5 mg PO DAILY hydrOXYzine HCL [Atarax] 10 mg PO TID PRN PRN Reason: Anxiety Empagliflozin [Jardiance] 25 mg PO DAILY Meloxicam [Mobic] 15 mg PO DAILY Spironolactone [Aldactone] 25 mg PO DAILY Discharge Medication List Anastrozole [Arimidex] 1 mg PO DAILY@1800 09/18/18 [History] Multivitamins, Thera [Multivitamin (formulary)] 1 tab PO DAILY 09/18/18 [History] Propranolol [Inderal] 20 mg PO BID 09/18/18 [History] allopurinoL [Zyloprim] 300 mg PO DAILY 09/18/18 [History] Cholecalciferol (Vitamin D3) [Vitamin D3] 5,000 unit PO MO 06/09/19 [History] Atorvastatin Calcium [Lipitor] 20 mg PO HS 03/01/22 [History] Empagliflozin [Jardiance] 25 mg PO DAILY 06/25/22 [History] Meloxicam [Mobic] 15 mg PO DAILY 09/03/24 [History] Spironolactone [Aldactone] 25 mg PO DAILY 09/03/24 [History] glipiZIDE [glipiZIDE ER] 2.5 mg PO DAILY 09/03/24 [History] hydrOXYzine HCL [Atarax] 10 mg PO TID PRN 09/04/24 [History] HYDROcodone/APAP 5-325MG [[place] 5-325] 1 tab PO Q4HR PRN #42 tab 09/08/24 [Rx] Baclofen 10 mg PO TID PRN #60 tab 09/09/24 [Rx] Sennosides-Docusate Sodium [Senokot-S] 1 tab PO BID PRN #60 tablet 09/09/24 [Rx] Follow up Appointment(s)/Referral(s): Sandra Dyson DO [Doctor of Osteopathic Medicine] - 09/21/24 1:30 pm Activity/Diet/Wound Care/Special Instructions: Keep hard collar intact at all times. May remove for bathing. Keep site clean. May shower with waterproof Tegaderm intact. Do not soak in a tub. After 96 hours postoperatively, patient May remove dressing and then may shower with area uncovered. Leave glue intact and allow it to fray off on its own. May ambulate as tolerated. Avoid heavy or rigorous activity. No repetitive bending twisting or lifting. No overhead work. Discharge Disposition: HOME SELF-CARE
[2024-09-09 11:57] LABS: Glucose,Whole Blood 136 mg/dL (70-110)
--- NOTE | 2024-09-09 16:19 | P.PN ---
Subjective Progress Note Date: 09/09/24 Patient was seen and examined. She reports 10/10 neck pain at the site of surgery. Passing gas. Urinating freely. General: non toxic, no distress, appears at stated age Derm: warm, dry Head: atraumatic, normocephalic, symmetric Eyes: EOMI, no lid lag, anicteric sclera Mouth: no lip lesion, mucus membranes moist Cardiovascular: S1S2 reg, no murmur Lungs: CTA bilateral, no rhonchi, no rales , no accessory muscle use Ext: no gross muscle atrophy, no edema, no contractures Neuro: no focal neuro deficits Psych: Alert, oriented, appropriate affect Based on my assessment of this patient, this patient meets a high complexity level of care. Hypoxia: O2 sat 90% on RA. Asked RN to check O2 sat prior to discharge it does not appear this was done. DM: Jardiance 25 mg PO QD. Glipizide 2.5 mg PO QD. HTN: Propranolol 20 mg PO BID. Aldactone 25 mg PO QD. HLD: Lipitor 20 mg PO QHS. Gout: Allopurinol 300 mg PO QD. History of breast CA: Anastrazole 1 mg PO QD. CODE STATUS: DVT Prophylaxis: GI Prophylaxis: Designated medical POA if patient is not able to make medical decisions for themselves: I have reviewed the following gift consultant notes: I have reviewed the results of the following tests: I have ordered the following tests: I have discussed the care of this patient with the following independent historian: Case management. RN. I have independently interpreted the following test below: I have discussed the management of this patient with the following physician: Objective - Vital Signs Vital signs: Vital Signs Temp 98.4 F 09/09/24 08:00 Pulse 88 09/09/24 08:00 Resp 16 09/09/24 09:15 BP 138/80 09/09/24 08:00 Pulse Ox 90 L 09/09/24 08:00 FiO2 Intake & Output 09/08/24 09/09/24 09/09/24 18:59 06:59 18:59 Output Total 4 Balance -4 Output: Urine 4 Stool 0 Other: Voiding Method Toilet Toilet Toilet # Voids 2 2 - Labs CBC & Chem 7: 09/08/24 12:33 Labs: Abnormal Lab Results - Last 24 Hours (Table) 09/08/24 09/08/24 09/09/24 Range/Units 16:35 20:31 06:04 POC Glucose (mg/dL) 171 H 200 H 140 H (70-110) mg/dL 09/09/24 Range/Units 11:55 POC Glucose (mg/dL) 136 H (70-110) mg/dL
== END 2024-09-09 13:18 | disposition home or self-care (01) | DRG 472 ==
LOC: 2ORMAIN 05:37 → 4SSUR 12:14
PROVIDERS: ADMIT Orthopaedic Surgery Orthopaedic Surgery of the Spine; ATTEND Orthopaedic Surgery Orthopaedic Surgery of the Spine
PROC: 00NW0ZZ Release Cervical Spinal Cord, Open Approach (ICD-10-PCS; 2024-09-07)
PROC: 01N10ZZ Release Cervical Nerve, Open Approach (ICD-10-PCS; 2024-09-07)
PROC: 0RB30ZZ Excision of Cervical Vertebral Disc, Open Approach (ICD-10-PCS; 2024-09-07)
PROC: 4A11X4G Monitoring of Peripheral Nervous Electrical Activity, Intraoperative, External Approach (ICD-10-PCS; 2024-09-07)
PROC: 8E09XBG Computer Assisted Procedure of Head and Neck Region, With Computerized Tomography (ICD-10-PCS; 2024-09-07)
PROC: 0RG2071 Fusion of 2 or more Cervical Vertebral Joints with Autologous Tissue Substitute, Posterior Approach, Posterior Column, Open Approach (ICD-10-PCS; principal; 2024-09-07 07:30)
DX: M43.12 Spondylolisthesis, cervical region (principal); M50.01 Cervical disc disorder with myelopathy, high cervical region; M48.02 Spinal stenosis, cervical region; M50.11 Cervical disc disorder with radiculopathy, high cervical region; I10 Essential (primary) hypertension; E78.00 Pure hypercholesterolemia, unspecified; E10.9 Type 1 diabetes mellitus without complications; M10.9 Gout, unspecified; M19.90 Unspecified osteoarthritis, unspecified site; Z79.4 Long term (current) use of insulin; Z79.811 Long term (current) use of aromatase inhibitors; Z79.84 Long term (current) use of oral hypoglycemic drugs; Z79.899 Other long term (current) drug therapy; Z85.3 Personal history of malignant neoplasm of breast; Z96.652 Presence of left artificial knee joint; R09.02 Hypoxemia; Z88.5 Allergy status to narcotic agent; Z91.041 Radiographic dye allergy status; Z88.7 Allergy status to serum and vaccine
CPT/HCPCS: 72020; 85027

== ENCOUNTER → 2025-03-17 | Outpatient (CLI) | payer MEDICARE ==
--- NOTE | 2025-03-17 11:21 | US ---
EXAMINATION TYPE: US liver DATE OF EXAM: 03/17/2025 COMPARISON: None relevant CLINICAL INDICATION: Female, 74 years old with history of R74.8 AKL PHOSE ELEVATION; Hx HTN, DM, and cholecystectomy. Patient denies any other signs, symptoms, or relevant history TECHNIQUE: Grayscale and color Doppler imaging of the right upper quadrant was performed. FINDINGS: EXAM MEASUREMENTS: Liver Length: 19.0 cm Gallbladder: Surgically absent CBD: 0.7 cm Right Kidney: 11.5 x 5.3 x 4.9 cm Pancreas: wnl Liver: wnl Gallbladder: Surgically absent CBD: Borderline to mildly dilated. There is either a 1.5 cm focus of bowel gas or calcification angel g the distal duct. Right Kidney: wnl IMPRESSION: Borderline to mildly dilated bile duct at 7 mm. This may be normal given postcholecystectomy status. However, there is either a 1.5 cm focus of bowel gas versus calcification along the distal bile duct. Unable to exclude choledocholithiasis especially if alkaline phosphatase and bilirubin levels are el evated. [facility], , 03/17/2025 11:19 AM
[2025-03-17 14:48] LABS: Appearance,Urine Clear (Clear); Bilirubin,Urine Negative (Negative); Blood,Urine Negative (Negative); Color,Urine Colorless; Glucose,Urine (UA) 4+ (Negative); Ketones,Urine Negative (Negative); Leukocyte Esterase,Urine Moderate (Negative); Mucus,Urine Rare /hpf; Nitrite,Urine Negative (Negative); Protein,Urine Negative (Negative); RBC,Urine 2 /hpf (0-5); Specific Gravity,Urine 1.031 (1.001-1.035); Squamous Epithelial Cell,Urine 2 /hpf (0-4); Urobilinogen,Urine <2.0 mg/dL (<2.0); WBC,Urine 8 /hpf (0-5)
== END | disposition home or self-care (01) ==
LOC: RADUSWWP 09:12
PROVIDERS: ATTEND Internal Medicine
DX: R74.8 Abnormal levels of other serum enzymes (principal); K83.8 Other specified diseases of biliary tract; Z90.49 Acquired absence of other specified parts of digestive tract; E11.9 Type 2 diabetes mellitus without complications
CPT/HCPCS: 76705; 81001

== ENCOUNTER → 2025-03-23 | Outpatient (CLI) | payer MEDICARE ==
[~2025-03-23] MED LIST changes: +REGADENOSON 0.4 MG/5 ML SYRINGE IV PRN; -ceFAZolin 1,000 MG in SODIUM CHLORIDE 0.9% IRRIGATIO 1,000 ML IRRIGATION PRN
--- NOTE | 2025-03-23 11:12 | CA ---
Lexiscan Nuclear Stress Test Report Name: Hallie Mullins Exam Date: 03/23/2025 10:12 Exam Location: [place] Stress Ht (in): 67 Wt (lb): 193 BSA: 1.99 Ordering Phys: Dejuan Hernández DO Referring Phys: Dejuan Hernández DO Technologist: MARISOL ZAPATA Age: 74 Gender: F : 1950 Procedure CPT: Indications: R07.89 chest pressure ICD-10 Codes: Patient History: Medications: PROPRANOLOL,,,,,, ANASTROZOL,,,,,, ATORVASTATIN,,,,,, GLIPAZIDE,,,,,, MELOXICAM,,,,,, ALLOPURINOL,,,,,, MULTIVITAMIN,,,,,, HYDROCODONE,,,,, Meds past 24 hrs: Pretest Chest Pain: STRESS TEST Lexiscan Protocol Exercise Duration (min:sec): 02:[address] Depressions (mm): Angina Score: Barnes Score: Resting HR (bpm): 62 Peak HR (bpm): 101 Resting BP (mmHg): 136 / 80 Peak BP (mmHg): 136 / 76 MPHR: 144 Target HR: 122 % MPHR: 70 METS: 1.0 Total Dose: Peak Dose: Atropine: Double Product: 87940 BP Response: Stress Termination: INFUSION COMPLETE Stress Symptoms: NO SYMPTOMS Stress Summary: ECG ANALYSIS Resting ECG: Normal sinus rhythm normal axis normal intervals Stress ECG: Patient was given intravenous Lexiscan as a protocol did not have chest pain or diagnostic ST segment depression CONCLUSIONS Negative stress test by EKG criteria Cardiolite portion of the stress test will be reported separately Dr. Sanjay Cohen MD (Electronically Signed) Final Date: 23 March 2025 11:11
--- NOTE | 2025-03-23 16:20 | NM ---
EXAMINATION TYPE: NM stress lexiscan cardiolite DATE OF EXAM: 03/23/2025 COMPARISON: NONE CLINICAL INDICATION: Female, 74 years old with history of R07.89 CHEST PRESSURE; pain TECHNIQUE: After the intravenous administration of 9.38 mCi Tc 99m Sestamibi - Cardiolite resting SP ECT images acquired 45 minutes post injection. The patient received 0.4mg Lexiscan, 24.6 mCi Tc 99m Sestamibi - Stress images obtained [address] injection FINDINGS: Review of stress and rest SPECT images demonstrates small fixed perfusion defect along the mid anteri or septal wall. However, there is no correlating abnormality on polar maps. No distinct perfusion abn ormality. Gated analysis shows normal wall motion with an estimated left ventricular ejection fracti on of 81 %. 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 The former i s favored. Further clinical correlation recommended. No scintigraphic evidence for reversible ischem ia. [facility], , 03/23/2025 4:18 PM
== END | disposition home or self-care (01) ==
LOC: RADNMMAIN 08:29
PROVIDERS: ATTEND Internal Medicine
DX: R07.89 Other chest pain (principal)
CPT/HCPCS: 93017; 78452; A9500; J2785